=== PATIENT | female | born 1960 | race Hispanic/Latino ===

== ENCOUNTER 2022-10-22 09:26 | Inpatient (IN) | payer OTHER ==
--- OUTSIDE RECORDS SUMMARY | 2022-10-22 09:34 | XMS REPORT | Continuity of Care Document ---
:1960 Author Organization [facility] t Address [address] [facility] [address] [place] [address] Support Name Relationship Address Phone MANJIT PICHARDOICA CH [address] [facility] [place] [address] ESEUNEX LOU CH Unavailable Escuriex Olu Extended family member [address] [place] [address] ESCURIEX, LOU CH [address] [place] [address] NOT OBTAINED Unavailable Unavailable Unavailable UPDATE, UPDATE OR [address] [place] [address] ESCUNEX, LOU CH [address] [place] [address] ESCURIEX, [place] [address] ESCURIEY, LOU CH [address] [place] [address] ESZURIEX, LOU CH [address] [place] [address] DAY, MOCICA CH [address] [place] [address] ESCURIEX, LOU OR [address] [place] [address] ESCURIEX, LOU CH [address] [facility] ([phone] [place] [address] EXCISICA, LOU CH [address] [place] [address] Adalid Angelo Unavailable [address] [phone] [place] [address] Lou Ames Unavailable [address] [phone] [place] [address] Adalid Angelo Unavailable [address] [phone] [place] [address] Care Team Providers Name Role Phone Oriana Stockton Primary Care Physician Oriana STOCKTON Attending Clinician Unavailable DANYEL SHARP Attending Clinician Unavailable DANNY OSMAN Attending Clinician Unavailable RIGO KIM Attending Clinician Unavailable MIGUELANGEL DYKES Attending Clinician Unavailable HELIO LOPEZ Attending Clinician Unavailable Donovan Lara MD Attending Clinician , [facility] Oph Minor Surg Room Attending Clinician Unavailable MAGNO BARBER Attending Clinician Unavailable KEKE CARTER Attending Clinician Unavailable KEKE CARTER Attending Clinician Unavailable OCTAVIANO WISDOM Attending Clinician Unavailable HELIO LOPEZ Attending Clinician Unavailable OCTAVIANO WISDOM Attending Clinician Unavailable KULWINDER JAMESON Attending Clinician Unavailable FRANCES HAYES Attending Clinician Unavailable Wen Maldonado MD Attending Clinician JEREMY WOMACK Attending Clinician Unavailable PHYSICIAN, NON ASSOCIATED Attending Clinician Unavailable WEN MALDONADO Attending Clinician Unavailable 1, Utp Interventional Consult Attending Clinician UnavailOlesya Almaraz LVN Attending Clinician Unavailable Thao Varma Attending Clinician Unavailable Oriana Stockton Admitting Clinician Unavailable Payers Payer Name Policy Type Policy Number Effective Date Expiration Date [facility] [id number] 2012 2012 00:00:00 00:00:00 [employer] MEDICARE [id number] 2020 ADVANTAGE HMO 00:00:00 [employer] STAR [id number] 2014 PLUS MMP 00:00:00 [employer] MEDICARE 53 [id number] [facility] Problems Condition Condition Condition Status Onset Resolution Last Treating Co mments Source Name Details Category Date Date Treatment Clinician Date Chronic Stage 3a Problem Common kidney chronic Spirit disease kidney - [facility]I stage 3A disease [facility] [id number] Hepatocell Problem Co mmon ular Spirit carcinoma - CHI [facility] [id number] long term Problem Com mon current Spirit use of - [facility] insulin [facility] [id number] Unsteady Problem Commo n gait [facility] Cirrhosis Cirrhosis Problem Com mon of liver of liver [facility] Diabetic Diabetic Problem Commo n neuropathy neuropathy Sp vj [facility] Thrombocyt Thrombocyt Problem C ommon openia openia [facility] Hyperlipid Hyperlipid Problem C ommon emia emia [facility] Hypertensi Hypertensi Problem C ommon on on, Spirit unspecifie - CHI d type [facility] [id number] Cough Problem Common [facility] [id number] Type 2 Problem Common diabetes [facility] mellitus - [facility] without [facility], Medical without Center long-term current use of insulin [id number] Iron Problem Common deficiency [facility] anemia, - CHI unspecifie [facility] iron [facility] deficiency Medica l anemia Center type Ascites Ascites Problem Common [facility] [id number] Environmen Problem Co mmon julio cesar [facility] allergies - [facility] Elevated Elevated Problem Commo n levels of LDH Spirit transamina - [facility] se & [facility] Center ase Chronic Chronic Problem Common hepatitis hepatitis Spir it C C [facility] [id number] Seasonal Problem Commo n allergic Spirit rhinitis - CHI due to [facility] Dysthymia Chronic Problem Commo n depressive [facility] person [facility] [id number] Epistaxis Problem Com mon Spirit [facility] Genital Genital Problem Common herpes herpes Spirit simplex simplex, - CHI unspecifie [facility] Seasonal Seasonal Problem Commo n allergy allergies [facility] [id number] Hyperlipid Problem Co mmon emia, Spirit mixed [facility] [id number] Acquired Problem Comm on hypothyroi Spirit dism [facility] [id number] Allergic Problem Commo n rhinitis, Spirit unspecifie - CHI d [facility] y, Medical unspecifie Center d trigger [id number] Neuropathy Problem Co mmon Spirit [facility] [id number] Constipati Problem Com mon on, Spirit unspecifie - CHI d St constipati [facility] on type Medical Center [id number] Type 2 [place] [id number] diabetes Spirit mellitus - CHI with hyperglyce [facility] [id number] Type 2 Problem Common diabetes Spirit mellitus - CHI with unspecifie [facility] Medical complicati Center ons Hepatic Hepatic Problem Common encephalop encephalop Sp vj athy athy - [facility] Chronic Other Problem Common pain chronic [facility] pain - [facility] Sciatica Lumbago Problem Common with Spirit sciatica, - CHI left side [facility] Vitamin D Vitamin D Problem Com mon deficiency deficiency Sp vj - [facility] Chronic +5th digit Problem Comm on kidney eff Spirit disease 05/20/20*CK - [facility] stage 3 D (chronic kidney [facility] disease) Medical stage 3, Center GFR 30-59 ml/min Allergies, Adverse Reactions, Alerts Allergy Allergy Status Severity Reaction(s) Onset Inactive Treating Comm ents Source Name Type Date Date Clinician Iodine Propensi Active Swelling Pt [facility] ty to 09-07 reports Health adverse 00:00: "swelling reaction 00 of s throat, itching"; occurred during imaging appointme nt Latex Propensi Active Itching Pt [facility] ty to 09-07 reports Health adverse 00:00: itching reaction 00 with s latex adhesives Peginter Propensi Active UT feron ty to 04-27 Health Edgard-2a adverse 00:00: reaction 00 s Social History Social Habit Start Date Stop Date Quantity Comments Source History of Tobacco [facility] Use [facility] History [facility] Alcohol Frequency History [facility] Alcohol Std Drinks History [facility] Alcohol Binge Exposure to 2022-07-22 2022-08-01 Not sure [facility] SARS-CoV-2 (event) 00:00:00 07:42:00 Tobacco use and 2021-09-07 2021-09-07 Smokeless tobacco [facility] exposure 00:00:00 00:00:00 non-user Alcohol intake 2021-09-07 2021-09-07 Current drinker [facility]th 00:00:00 00:00:00 of alcohol (finding) Alcohol Comment 2021-09-07 2021-09-07 Pt reports [facility] 00:00:00 00:00:00 "sometimes" Sex Assigned At 1960-04-081958-04-08 [facility] [place] 00:00[facility]00 [facility]:00 [facility] Smoking Status Start Date Stop Date Source Never smoked tobacco [facility] Medications Ordered Filled Start Stop Current Ordering Indication Dosage Frequency Signature Comments Components Source Medication Medication Date Date Medication? Clinician (SIG) Name Name aflibercept 2022- No [id number] 2mg 2 mg, [facility] (Eylea) 09-26 [facility] intrav[facility]rea 19:40: 19:40 al, Once l injection 22 :00 PRN 2 mg Procedure, Starting on Sun09/26/22 at 1340, For 1 dose triamcinolo 2022- No [id number] 80mg UT ne 09-25 42419 Health acetonide 16:30: 16:30 (Kenalog-40 00 :00 ) injection 80 mg triamcinolo 2022- No [id number] 80mg 80 mg, UT ne 09-25 91147 [facility] acetonide 16:30: 16:30 cular, (Kenalog-40 00 :00 Once PRN ) injection Procedure, 80 mg Starting on Sun09/25/22 at 1030, For 1 dose aflibercept 2022- No [id number] 2mg 2 mg, [facility] (Eylea) 08-29 [facility]rea 18:39: 18:39 al, Once l injection 46 :00 PRN 2 mg Procedure, Starting on Sun08/29/22 at 1239, For 1 dose aflibercept 2022- No [id number] 2mg 2 mg, [facility] (Eylea) 08-29 [facility] intravitrea 18:39: 18:39 al, Once l injection 46 :00 PRN 2 mg Procedure, Starting on Sun08/29/22 at 1239, For 1 dose aflibercept 2021-08- No [id number] 2mg 2 mg, UT (Eylea) 10-02 [facility] intrav[facility]rea 14:53: 14:53 al, Once l injection 30 :00 PRN 2 mg Procedure, Starting on Sun08/01/22 at 0853, For 1 dose aflibercept 2021-08- No [id number] 2mg 2 mg, UT (Eylea) 2-13 12-13 [facility] intravitrea 14:53: 14:53 al, Once l injection 30 :00 PRN 2 mg Procedure, Starting on Sun08/01/22 at 0853, For 1 dose empaglifloz 2021-08 Yes 1{tbl} 1 tablet. UT in 10-02 Health (Jardiance) 07:53: 25 MG 32 lisinopril 2021-08 Yes 10mg Take 10 mg U T 10 MG 2-13 by mouth. Health tablet 07:53: 32 acyclovir 2021-08 Yes 1 tablet UT (Zovirax) 2-13 [facility] 400 MG 07:53: Twice a tablet 32 day as needed for 5-7 days until improved for 30 days levocetiriz 2021-08 Yes 1{tbl} Take 1 UT ine (Xyzal) 2-13 tablet by Hea lth 5 MG tablet 07:53: mouth 1 32 (one) time each day in the evening. insulin 2021-08 Yes 10 units UT aspart 2-13 TID before Health (NovoLOG) 07:53: meals 100 UNIT/ML 32 injection multivitami 2021-08 Yes Take by UT n with 2-13 mouth. Health minerals 07:53: (Centrum) 32 9-200 mg-mcg tablet split tablet empaglifloz 2021-08 Yes 1{tbl} 1 tablet. UT in 10-02 Health (Jardiance) 07:53: 25 MG 32 lisinopril 2021-08 Yes 10mg Take 10 mg U T 10 MG 2-13 by mouth. Health tablet 07:53: 32 acyclovir 2021-08 Yes 1 tablet UT (Zovirax) 2-13 [facility] 400 MG 07:53: Twice a tablet 32 day as needed for 5-7 days until improved for 30 days levocetiriz 2021-08 Yes 1{tbl} Take 1 UT ine (Xyzal) 2-13 tablet by Hea lth 5 MG tablet 07:53: mouth 1 32 (one) time each day in the evening. insulin 2021-08 Yes 10 units UT aspart 2-13 TID before Health (NovoLOG) 07:53: meals 100 UNIT/ML 32 injection multivitami 2021-08 Yes Take by UT n with 2-13 mouth. Health minerals 07:53: (Centrum) 32 9-200 mg-mcg tablet split tablet empaglifloz 2021-08 Yes 1{tbl} 1 tablet. UT in 10-02 Health (Jardiance) 07:53: 25 MG 32 lisinopril 2021- Yes 10mg Take 10 mg U T 10 MG 2-13 by mouth. Health tablet 07:53: 32 acyclovir 2021-08 Yes 1 tablet UT (Zovirax) 2-13 [facility] 400 MG 07:53: Twice a tablet 32 day as needed for 5-7 days until improved for 30 days levocetiriz 2021-08 Yes 1{tbl} Take 1 UT ine (Xyzal) 2-13 tablet by Hea lth 5 MG tablet 07:53: mouth 1 32 (one) time each day in the evening. insulin 2021-08 Yes 10 units UT aspart 2-13 TID before Health (NovoLOG) 07:53: meals 100 UNIT/ML 32 injection multivitami 2021-08 Yes Take by UT n with 2-13 mouth. Health minerals 07:53: (Centrum) 32 9-200 mg-mcg tablet split tablet empaglifloz 2021-08 Yes 1{tbl} 1 tablet. UT in 10-02 Health (Jardiance) 07:53: 25 MG 32 lisinopril 2021-08 Yes 10mg Take 10 mg U T 10 MG 2-13 by mouth. Health tablet 07:53: 32 acyclovir 2021-08 Yes 1 tablet UT (Zovirax) 2-13 [facility] 400 MG 07:53: Twice a tablet 32 day as needed for 5-7 days until improved for 30 days levocetiriz 2021-1 Yes 1{tbl} Take 1 UT ine (Xyzal) 2-13 tablet by Hea lth 5 MG tablet 07:53: mouth 1 32 (one) time each day in the evening. insulin 2021- Yes 10 units UT aspart 2-13 TID before Health (NovoLOG) 07:53: meals 100 UNIT/ML 32 injection multivitami 2021-08 Yes Take by UT n with 2-13 mouth. Health minerals 07:53: (Centrum) 32 9-200 mg-mcg tablet split tablet empaglifloz 2021-1 Yes 1{tbl} 1 tablet. UT in 10-02 Health (Jardiance) 07:53: 25 MG 32 lisinopril 2021-08 Yes 10mg Take 10 mg U T 10 MG 2-13 by mouth. Health tablet 07:53: 32 acyclovir 2021-08 Yes 1 tablet UT (Zovirax) 2-13 [facility] 400 MG 07:53: Twice a tablet 32 day as needed for 5-7 days until improved for 30 days levocetiriz 2021-08 Yes 1{tbl} Take 1 UT ine (Xyzal) 2-13 tablet by a lt 5 MG tablet 07:53: mouth 1 32 (one) time each day in the evening. insulin 2021-08 Yes 10 units UT aspart 2-13 TID before Health (NovoLOG) 07:53: meals 100 UNIT/ML 32 injection multivitami 2021-08 Yes Take by UT n with 2-13 mouth. Health minerals 07:53: (Centrum) 32 9-200 mg-mcg tablet split tablet empaglifloz 2021-08 Yes 1{tbl} 1 tablet. UT in 10-02 Health (Jardiance) 07:53: 25 MG 32 lisinopril 2021-08 Yes 10mg Take 10 mg U T 10 MG 2-13 by mouth. Health tablet 07:53: 32 acyclovir 2021-08 Yes 1 tablet UT (Zovirax) 2-13 [facility] 400 MG 07:53: Twice a tablet 32 day as needed for 5-7 days until improved for 30 days levocetiriz 2021-08 Yes 1{tbl} Take 1 UT ine (Xyzal) 2-13 tablet by a lt 5 MG tablet 07:53: mouth 1 32 (one) time each day in the evening. insulin 2021-08 Yes 10 units UT aspart 2-13 TID before Health (NovoLOG) 07:53: meals 100 UNIT/ML 32 injection multivitami 2021-08 Yes Take by UT n with 2-13 mouth. Health minerals 07:53: (Centrum) 32 9-200 mg-mcg tablet split tablet aflibercept 2021-08 2022- No [id number] 2mg 2 mg, UT (Eylea) 0-12 10-12 [facility] intravitrea 15:56: 15:56 al, Once l injection 20 :00 PRN 2 mg Procedure, Starting on Sun05/31/22 at 1056, For 1 dose Vitamin D-3 Vitamin D-3 No 1{table QD Vitamin 125 MCG 125 MCG 6-30 t} D-3 125 (5000 UT) (5000 UT) 00:00: MCG (5000 00 UT) Vitamin D-3 Vitamin D-3 No 1{table QD Vitamin 125 MCG 125 MCG 6-30 t} D-3 125 (5000 UT) (5000 UT) 00:00: MCG (5000 00 UT) Vitamin D-3 Vitamin D-3 No 1{table QD Vitamin 125 MCG 125 MCG 6-30 t} D-3 125 (5000 UT) (5000 UT) 00:00: MCG (5000 00 UT) Vitamin D-3 Vitamin D-3 No 1{table QD Vitamin 125 MCG 125 MCG 6-30 t} D-3 125 (5000 UT) (5000 UT) 00:00: MCG (5000 00 UT) Vitamin D-3 Vitamin D-3 No 1{table QD Vitamin 125 MCG 125 MCG 6-30 t} D-3 125 (5000 UT) (5000 UT) 00:00: MCG (5000 00 UT) insulin 2021-0 Yes 10 units UT aspart 3-28 TID before Health (NovoLOG) 10:56: meals 100 UNIT/ML 17 injection multivitami 0 Yes Take by UT n with 3-28 mouth. Health minerals 10:56: (Centrum) 17 9-200 mg-mcg tablet split tablet insulin 2021-0 Yes 10 units UT aspart 3-28 TID before Health (NovoLOG) 10:56: meals 100 UNIT/ML 17 injection multivitami 2021-0 Yes Take by UT n with 3-28 mouth. Health minerals 10:56: (Centrum) 17 9-200 mg-mcg tablet split tablet insulin 2021-0 Yes 10 units UT aspart 3-28 TID before Health (NovoLOG) 10:56: meals 100 UNIT/ML 17 injection multivitami 2021-0 Yes Take by UT n with 3-28 mouth. Health minerals 10:56: (Centrum) 17 9-200 mg-mcg tablet split tablet insulin 2021-0 Yes 10 units UT aspart 3-28 TID before Health (NovoLOG) 10:56: meals 100 UNIT/ML 17 injection multivitami 2-0 Yes Take by UT n with 3-28 mouth. Health minerals 10:56: (Centrum) 17 9-200 mg-mcg tablet split tablet insulin 2-0 Yes 10 units UT aspart 3-28 TID before Health (NovoLOG) 10:56: meals 100 UNIT/ML 17 injection multivitami 2-0 Yes Take by UT n with 3-28 mouth. Health minerals 10:56: (Centrum) 17 9-200 mg-mcg tablet split tablet insulin 2-0 Yes 10 units UT aspart 3-28 TID before Health (NovoLOG) 10:56: meals 100 UNIT/ML 17 injection multivitami 2-0 Yes Take by UT n with 3-28 mouth. Health minerals 10:56: (Centrum) 17 9-200 mg-mcg tablet split tablet insulin 2021-0 Yes 10 units UT aspart 3-28 TID before Health (NovoLOG) 10:56: meals 100 UNIT/ML 17 injection multivitami 2021-0 Yes Take by UT n with 3-28 mouth. Health minerals 10:56: (Centrum) 17 9-200 mg-mcg tablet split tablet empaglifloz 2021-0 Yes 1{tbl} 1 tablet. UT in 11-14 Health (Jardiance) 10:56: 25 MG 16 lisinopril 2021-0 Yes 10mg Take 10 mg U T 10 MG 3-28 by mouth. Health tablet 10:56: 16 acyclovir 2021-0 Yes 1 tablet UT (Zovirax) 3-28 [facility] 400 MG 10:56: Twice a tablet 16 day as needed for 5-7 days until improved for 30 days levocetiriz 2021-0 Yes 1{tbl} Take 1 UT ine (Xyzal) 3-28 tablet by a lt 5 MG tablet 10:56: mouth 1 16 (one) time each day in the evening. empaglifloz 2021-0 Yes 1{tbl} 1 tablet. UT in 11-14 Health (Jardiance) 10:56: 25 MG 16 lisinopril 2-0 Yes 10mg Take 10 mg U T 10 MG 3-28 by mouth. Health tablet 10:56: 16 acyclovir 2021-0 Yes 1 tablet UT (Zovirax) 3- [facility] 400 MG 10:56: Twice a tablet 16 day as needed for 5-7 days until improved for 30 days levocetiriz 2022-0 Yes 1{tbl} Take 1 UT ine (Xyzal) 3- tablet by Hea lt 5 MG tablet 10:56: mouth 1 16 (one) time each day in the evening. empaglifloz 2022-0 Yes 1{tbl} 1 tablet. UT in 11-14 Health (Jardiance) 10:56: 25 MG 16 lisinopril 2022-0 Yes 10mg Take 10 mg U T 10 MG 3- by mouth. Health tablet 10:56: 16 acyclovir 2022-0 Yes 1 tablet UT (Zovirax) 3- [facility] 400 MG 10:56: Twice a tablet 16 day as needed for 5-7 days until improved for 30 days levocetiriz 2022-0 Yes 1{tbl} Take 1 UT ine (Xyzal) - tablet by a lt 5 MG tablet 10:56: mouth 1 16 (one) time each day in the evening. empaglifloz 2022-0 Yes 1{tbl} 1 tablet. UT in 11-14 Health (Jardiance) 10:56: 25 MG 16 lisinopril 2022-0 Yes 10mg Take 10 mg U T 10 MG 11-14 by mouth. Health tablet 10:56: 16 acyclovir 2022-0 Yes 1 tablet UT (Zovirax) 3- [facility] 400 MG 10:56: Twice a tablet 16 day as needed for 5-7 days until improved for 30 days levocetiriz 2022-0 Yes 1{tbl} Take 1 UT ine (Xyzal) 3- tablet by a lt 5 MG tablet 10:56: mouth 1 16 (one) time each day in the evening. empaglifloz 2022-0 Yes 1{tbl} 1 tablet. UT in 11-14 Health (Jardiance) 10:56: 25 MG 16 lisinopril 2022-0 Yes 10mg Take 10 mg U T 10 MG 3-28 by mouth. Health tablet 10:56: 16 acyclovir 2022-0 Yes 1 tablet UT (Zovirax) 3-28 [facility] 400 MG 10:56: Twice a tablet 16 day as needed for 5-7 days until improved for 30 days levocetiriz 2022-0 Yes 1{tbl} Take 1 UT ine (Xyzal) 3-28 tablet by Hea lt 5 MG tablet 10:56: mouth 1 16 (one) time each day in the evening. empaglifloz 2022-0 Yes 1{tbl} 1 tablet. UT in 11-14 Health (Jardiance) 10:56: 25 MG 16 lisinopril 2022-0 Yes 10mg Take 10 mg U T 10 MG 3-28 by mouth. Health tablet 10:56: 16 acyclovir 2-0 Yes 1 tablet UT (Zovirax) 3- [facility] 400 MG 10:56: Twice a tablet 16 day as needed for 5-7 days until improved for 30 days levocetiriz 2022-0 Yes 1{tbl} Take 1 UT ine (Xyzal) 3- tablet by a lt 5 MG tablet 10:56: mouth 1 16 (one) time each day in the evening. empaglifloz 2022-0 Yes 1{tbl} 1 tablet. UT in 11-14 Health (Jardiance) 10:56: 25 MG 16 lisinopril 2-0 Yes 10mg Take 10 mg U T 10 MG 3 by mouth. Health tablet 10:56: 16 acyclovir 2021-0 Yes 1 tablet UT (Zovirax) 3- [facility] 400 MG 10:56: Twice a tablet 16 day as needed for 5-7 days until improved for 30 days levocetiriz 2022-0 Yes 1{tbl} Take 1 UT ine (Xyzal) 3-28 tablet by a lt 5 MG tablet 10:56: mouth 1 16 (one) time each day in the evening. NovoLOG MIX 2022-0 Yes UT 70/30 3-15 Health FLEXPEN 00:00: (-30) 100 00 UNIT/ML injection NovoLOG MIX 2022-0 Yes UT 70/30 3-15 Health FLEXPEN 00:00: (-30) 100 00 UNIT/ML injection NovoLOG MIX 2022-0 Yes UT 70/30 3-15 Health FLEXPEN 00:00: (-30) 100 00 UNIT/ML injection NovoLOG MIX 2022-0 Yes UT 70/30 3-15 Health FLEXPEN 00:00: (70-30) 100 00 UNIT/ML injection NovoLOG MIX 2022-0 Yes UT 70/30 3-15 Health FLEXPEN 00:00: (70-30) 100 00 UNIT/ML injection NovoLOG MIX 2022-0 Yes UT 70/30 3-15 Health FLEXPEN 00:00: (70-30) 100 00 UNIT/ML injection NovoLOG MIX 2022-0 Yes UT 70/30 3-15 Health FLEXPEN 00:00: (70-30) 100 00 UNIT/ML injection NovoLOG MIX 2022-0 Yes UT 70/30 3-15 Health FLEXPEN 00:00: (70-30) 100 00 UNIT/ML injection NovoLOG MIX 2-0 Yes UT 70/30 3-15 Health FLEXPEN 00:00: (70-30) 100 00 UNIT/ML injection NovoLOG MIX 2-0 Yes UT 70/30 3-15 Health FLEXPEN 00:00: (70-30) 100 00 UNIT/ML injection NovoLOG MIX 2-0 Yes UT 7030 3-15 Health FLEXPEN 00:00: (70-30) 100 00 UNIT/ML injection NovoLOG MIX 2-0 Yes UT 70/30 3-15 Health FLEXPEN 00:00: (70-30) 100 00 UNIT/ML injection NovoLOG MIX 2-0 Yes UT 7030 3-15 Health FLEXPEN 00:00: (70-30) 100 00 UNIT/ML injection pantoprazol 2-0 Yes UT e 3-14 Health (ProtoNix) 00:00: 40 MG EC 00 tablet pantoprazol 2022-0 Yes UT e 3-14 Health (ProtoNix) 00:00: 40 MG EC 00 tablet pantoprazol 2022-0 Yes UT e 3-14 Health (ProtoNix) 00:00: 40 MG EC 00 tablet pantoprazol 2022-0 Yes UT e 3-14 Health (ProtoNix) 00:00: 40 MG EC 00 tablet pantoprazol 2022-0 Yes UT e 3-14 Health (ProtoNix) 00:00: 40 MG EC 00 tablet pantoprazol 2022-0 Yes UT e 3-14 Health (ProtoNix) 00:00: 40 MG EC 00 tablet pantoprazol 2022-0 Yes UT e 3-14 Health (ProtoNix) 00:00: 40 MG EC 00 tablet pantoprazol 2-0 Yes UT e 3-14 Health (ProtoNix) 00:00: 40 MG EC 00 tablet pantoprazol 2-0 Yes UT e 3-14 Health (ProtoNix) 00:00: 40 MG EC 00 tablet pantoprazol 2-0 Yes UT e 3-14 Health (ProtoNix) 00:00: 40 MG EC 00 tablet pantoprazol 2-0 Yes UT e 3-14 Health (ProtoNix) 00:00: 40 MG EC 00 tablet pantoprazol 2-0 Yes UT e 3-14 Health (ProtoNix) 00:00: 40 MG EC 00 tablet pantoprazol 2-0 Yes UT e 3-14 Health (ProtoNix) 00:00: 40 MG EC 00 tablet predniSONE 2-0 Yes [id number] Take one UT (Deltasone) 2-10 tablet 13 Hea lth 50 MG 00:00: hours tablet 00 before procedure. Take one tablet 7 hours before procedure. Take one tablet 1 hour before procedure. predniSONE 2-0 Yes [id number] Take one UT (Deltasone) 2-10 tablet 13 Hea lth 50 MG 00:00: hours tablet 00 before procedure. Take one tablet 7 hours before procedure. Take one tablet 1 hour before procedure. predniSONE 2022-0 Yes [id number] Take one UT (Deltasone) 2-10 tablet 13 Hea lth 50 MG 00:00: hours tablet 00 before procedure. Take one tablet 7 hours before procedure. Take one tablet 1 hour before procedure. predniSONE 2022-0 Yes [id number] Take one UT (Deltasone) 2-10 tablet 13 Hea lth 50 MG 00:00: hours tablet 00 before procedure. Take one tablet 7 hours before procedure. Take one tablet 1 hour before procedure. predniSONE 2022-0 Yes [id number] Take one UT (Deltasone) 2-10 tablet 13 Hea lth 50 MG 00:00: hours tablet 00 before procedure. Take one tablet 7 hours before procedure. Take one tablet 1 hour before procedure. predniSONE 2022-0 Yes [id number] Take one UT (Deltasone) 2-10 tablet 13 Hea lth 50 MG 00:00: hours tablet 00 before procedure. Take one tablet 7 hours before procedure. Take one tablet 1 hour before procedure. predniSONE 2022-0 Yes [id number] Take one UT (Deltasone) 2-10 tablet 13 Hea lth 50 MG 00:00: hours tablet 00 before procedure. Take one tablet 7 hours before procedure. Take one tablet 1 hour before procedure. predniSONE 2022-0 Yes [id number] Take one UT (Deltasone) 2-10 tablet 13 Hea lth 50 MG 00:00: hours tablet 00 before procedure. Take one tablet 7 hours before procedure. Take one tablet 1 hour before procedure. predniSONE 2022-0 Yes [id number] Take one UT (Deltasone) 2-10 tablet 13 Hea lth 50 MG 00:00: hours tablet 00 before procedure. Take one tablet 7 hours before procedure. Take one tablet 1 hour before procedure. predniSONE 2022-0 Yes [id number] Take one UT (Deltasone) 2-10 tablet 13 Hea lth 50 MG 00:00: hours tablet 00 before procedure. Take one tablet 7 hours before procedure. Take one tablet 1 hour before procedure. predniSONE 2022-0 Yes [id number] Take one UT (Deltasone) 2-10 tablet 13 Hea lth 50 MG 00:00: hours tablet 00 before procedure. Take one tablet 7 hours before procedure. Take one tablet 1 hour before procedure. predniSONE 2022-0 Yes [id number] Take one UT (Deltasone) 2-10 tablet 13 Hea lth 50 MG 00:00: hours tablet 00 before procedure. Take one tablet 7 hours before procedure. Take one tablet 1 hour before procedure. predniSONE 2022-0 Yes [id number] Take one UT (Deltasone) 2-10 tablet 13 Hea lth 50 MG 00:00: hours tablet 00 before procedure. Take one tablet 7 hours before procedure. Take one tablet 1 hour before procedure. levothyroxi 2021-0 Yes [facility] (Synthroid, 00:00: Levoxyl) 75 00 MCG tablet levothyroxi 2021-0 Yes [facility] (Synthroid, 00:00: Levoxyl) 75 00 MCG tablet levothyroxi 2021-0 Yes [facility] (Synthroid, 00:00: Levoxyl) 75 00 MCG tablet levothyroxi 2021-0 Yes [facility] (Synthroid, 00:00: Levoxyl) 75 00 MCG tablet levothyroxi 2021-0 Yes [facility] -[facility] (Synthroid, 00:00: Levoxyl) 75 00 MCG tablet levothyroxi 2021-0 Yes [facility] -[facility] (Synthroid, 00:00: Levoxyl) 75 00 MCG tablet levothyroxi 2021-0 Yes [facility] -[facility] (Synthroid, 00:00: Levoxyl) 75 00 MCG tablet levothyroxi 2021-0 Yes [facility] -[facility] (Synthroid, 00:00: Levoxyl) 75 00 MCG tablet levothyroxi 2021-0 Yes [facility] -[facility] (Synthroid, 00:00: Levoxyl) 75 00 MCG tablet levothyroxi 2021-0 Yes [facility] (Synthroid, 00:00: Levoxyl) 75 00 MCG tablet levothyroxi 2021-0 Yes [facility] - [facility] (Synthroid, 00:00: Levoxyl) 75 00 MCG tablet levothyroxi 2021-0 Yes [facility] (Synthroid, 00:00: Levoxyl) 75 00 MCG tablet levothyroxi 2021-0 Yes [facility] -[facility] (Synthroid, 00:00: Levoxyl) 75 00 MCG tablet citalopram 2021-0 Yes [facility] (CeleXA) 20 1-07 [facility] MG tablet 00:00: 00 citalopram 2-0 Yes [facility] (CeleXA) 20 1-07 [facility] MG tablet 00:00: 00 citalopram 2-0 Yes [facility] (CeleXA) 20 1-07 [facility] MG tablet 00:00: 00 citalopram 2-0 Yes [facility] (CeleXA) 20 1-07 [facility] MG tablet 00:00: 00 citalopram 2-0 Yes [facility] (CeleXA) 20 1-07 [facility] MG tablet 00:00: 00 citalopram 2-0 Yes [facility] (CeleXA) 20 1-07 [facility] MG tablet 00:00: 00 citalopram 2-0 Yes [facility] (CeleXA) 20 1-07 [facility] MG tablet 00:00: 00 citalopram 2-0 Yes [facility] (CeleXA) 20 1-07 [facility] MG tablet 00:00: 00 citalopram 0 Yes [facility] (CeleXA) 20 1-07 [facility] MG tablet 00:00: 00 citalopram 0 Yes [facility] (CeleXA) 20 1-07 [facility] MG tablet 00:00: 00 citalopram 0 Yes [facility] (CeleXA) 20 1-07 [facility] MG tablet 00:00: 00 citalopram 0 Yes [facility] (CeleXA) 20 1-07 [facility] MG tablet 00:00: 00 citalopram 0 Yes [facility] (CeleXA) 20 1-07 [facility] MG tablet 00:00: 00 No known 2020-08 No No known [facility] medications 08-28 medication He alth 11:15: s 00 No known 2020-08 No No known [facility] medications 08-28 medication [facility] al[facility] 11:15: s 00 gabapentin 2020-08 Yes [facility] (Neurontin) 0-11 [facility] 300 MG 00:00: capsule 00 gabapentin 2020-08 Yes [facility] (Neurontin) 0-11 [facility] 300 MG 00:00: capsule 00 gabapentin 2020-08 Yes [facility] (Neurontin) 0-11 [facility] 300 MG 00:00: capsule 00 gabapentin 2020-08 Yes [facility] (Neurontin) 0-11 [facility] 300 MG 00:00: capsule 00 gabapentin 2020-08 Yes [facility] (Neurontin) 0-11 [facility] 300 MG 00:00: capsule 00 gabapentin 2020-08 Yes [facility] (Neurontin) 0-11 [facility] 300 MG 00:00: capsule 00 gabapentin 2020-08 Yes [facility] (Neurontin) 0-11 [facility] 300 MG 00:00: capsule 00 gabapentin 2020-08 Yes [facility] (Neurontin) 0-11 [facility] 300 MG 00:00: capsule 00 gabapentin 2020-08 Yes [facility] (Neurontin) 0-11 [facility] 300 MG 00:00: capsule 00 gabapentin 2020-08 Yes [facility] (Neurontin) 0-11 [facility] 300 MG 00:00: capsule 00 gabapentin 2020-08 Yes [facility] (Neurontin) 0-11 [facility] 300 MG 00:00: capsule 00 gabapentin 2020-08 Yes [facility] (Neurontin) 0-11 [facility] 300 MG 00:00: capsule 00 gabapentin 2020-08 Yes [facility] (Neurontin) 0-11 [facility] 300 MG 00:00: capsule 00 Alcohol Alcohol No Alcohol Prep 70 % Prep 70 % 9-29 Prep 70 % 00:00: 00 Alcohol Alcohol 2020-0 No Alcohol Prep 70 % Prep 70 % 9-29 Prep 70 % 00:00: 00 Alcohol Alcohol 2020-0 No Alcohol Prep 70 % Prep 70 % 9-29 Prep 70 % 00:00: 00 Alcohol Alcohol 2020-0 No Alcohol Prep 70 % Prep 70 % 9-29 Prep 70 % 00:00: 00 Alcohol Alcohol 2020-0 No Alcohol Prep 70 % Prep 70 % 9-29 Prep 70 % 00:00: 00 Alcohol Alcohol 2020-0 No Alcohol Prep 70 % Prep 70 % 9-29 Prep 70 % 00:00: 00 Alcohol Alcohol 2020-0 No Alcohol Prep 70 % Prep 70 % 9-29 Prep 70 % 00:00: 00 Alcohol Alcohol 2020-0 No Alcohol Prep 70 % Prep 70 % 9-29 Prep 70 % 00:00: 00 Alcohol Alcohol 2020-0 No Alcohol Prep 70 % Prep 70 % 9-29 Prep 70 % 00:00: 00 Cheratussin Cheratussin 2018-0 Yes [facility] [place] 5 ml Common AC AC 09-15 [facility] 00:00: - [facility] 00 [facility] Accu-Chek Accu-Chek Yes Na [place] USE TWO Common Guide Guide TIMES A Spirit DAY TO - [facility] CHECK [facility] NovoFine NovoFine Yes Na [place] USE TWICE Common DAILY WITH Spirit FLEXPEN [facility] blood blood Yes Na [place] one Common glucose glucose Spirit test strip test strip - C HI [facility] NovoLog NovoLog Yes Na [place] INJECT 10 C ommon Flexpen Flexpen UNITS Spirit UNDER THE - [facility] SKIN WITH [facility] NovoLog Mix NovoLog Mix Yes Na [place] 64 units Common 70/30 70/30 in am and Spirit Flexpen Flexpen 60 units - CHI pm [facility] Glucometer Glucometer Yes Na [place] one Common Spirit [facility] Jardiance Jardiance Yes Na [place] 1 tablet Common Spirit [facility] Lisinopril Lisinopril Yes Na [place] 1 tablet Common Spirit [facility] Lactulose Lactulose Yes Na [place] TAKE 30 ML Common Encephalopa Encephalopa BY MOUTH Spirit thy thy DAILY - [facility] Celexa Celexa Yes Na [place] TAKE ONE Comm on TABLET BY Spirit MOUTH ONCE - [facility] DAILY [facility] Propranolol Propranolol Yes Na [place] 1 tablet Common HCl HCl [facility] Ferrous Ferrous Yes Na [place] 1 tablet Co mmon Sulfate Sulfate [facility] Zovirax Zovirax Yes Na [place] 1 tablet Co mmon [facility] Alcohol Alcohol Yes Na [place] as Common Prep Pads Prep Pads directed S pirit [facility] Lancets Lancets Yes Na [place] one Common Super Thin Super Thin Spi rit [facility] Acyclovir Acyclovir Yes Na [place] TAKE ONE Common TABLET BY Spirit MOUTH - [facility] TWICE A [facility] Claritin Claritin Yes Na [place] 1 tablet Common [facility] Flonase Flonase Yes Na [place] 2 spray in Common each Spirit nostril [facility] Neurontin Neurontin Yes Na [place] 1 capsule Common [facility] NovoLog NovoLog Yes Na [place] 10 units Co mmon TID before Spirit meals [facility] Lisinopril Lisinopril Yes Na [place] TAKE ONE Common TABLET BY Spirit MOUTH - CHI DAILY [facility] Acyclovir Acyclovir Yes Na [place] APPLY TO Common AFFECTED Spirit AREA(S) 6 - CHI TIMES [facility] Levothyroxi Levothyroxi Yes Na [place] 1 tablet Common ne Sodium ne Sodium in the Spi rit morning on - CHI an empty [facility] NovoFine NovoFine Yes Na [place] USE TWICE Common DAILY WITH Spirit FLEXPEN [facility] HydrOXYzine HydrOXYzine Yes Na [place] 1 tablet Common HCl HCl as needed [facility] Levothyroxi Levothyroxi Yes Na [place] 1 tablet Common ne Sodium ne Sodium in the Spi rit morning on - CHI an empty [facility] Levocetiriz Levocetiriz Yes Na [place] TAKE ONE Common ine ine TABLET BY Spirit Dihydrochlo Dihydrochlo MOUTH - [facility] ride ride EVERY St EVENING [facility] Jardiance Jardiance No 1{table QD Jardiance 25 MG 25 MG t} 25 MG Propranolol Propranolol No 1{table QD Propranolo HCl 10 MG HCl 10 MG t} l HCl 10 MG Lancets Lancets No Lancets Super Thin Super Thin Super Thin n/s n/s n/s NovoFine NovoFine No BID NovoFine 32G X 6 MM 32G X 6 MM 32G X 6 MM Levothyroxi Levothyroxi No QD Levothyrox ne Sodium ne Sodium ine Sodium 50 MCG 50 MCG 50 MCG NovoLOG Mix NovoLOG Mix No QD NovoLOG 70/30 70/30 Mix 70/30 FlexPen FlexPen FlexPen (70-30) 100 (70-30) 100 (70-30) UNIT/ML UNIT/ML 100 UNIT/ML CeleXA 20 CeleXA 20 No 1{table QD CeleXA 20 MG MG t} MG Neurontin Neurontin No 1{capsu QID Neurontin 300 MG 300 MG le} 300 MG hydrOXYzine hydrOXYzine No 1{table hydrOXYzin HCl 25 MG HCl 25 MG t_as_ne e HCl 25 eded} MG Acyclovir Acyclovir No 1{table BID Acyclovir 400 MG 400 MG t} 400 MG Flonase 50 Flonase 50 No 2{spray QD Flonase 50 MCG/DOSE MCG/DOSE _in_eac MCG/DOSE h_nostr il} NovoLOG Mix NovoLOG Mix No NovoLOG 70/30 70/30 Mix 70/30 FlexPen FlexPen FlexPen (70-30) 100 (70-30) 100 (70-30) UNIT/ML UNIT/ML 100 UNIT/ML blood blood No QD blood glucose glucose glucose test strip test strip test strip n/s n/s n/s Pantoprazol Pantoprazol No 1{table QD Pantoprazo e Sodium 40 e Sodium 40 t} le Sodium MG MG 40 MG Lisinopril Lisinopril No 1{table QD Lisinopril 20 MG 20 MG t} 20 MG Lisinopril Lisinopril No 1{table QD Lisinopril 20 MG 20 MG t} 20 MG NovoLOG NovoLOG No TID NovoLOG FlexPen 100 FlexPen 100 FlexPen UNIT/ML UNIT/ML 100 UNIT/ML Accu-Chek Accu-Chek No BID Accu-Chek Guide - Guide - Guide - Ferrous Ferrous No 1{table TID Ferrous Sulfate 325 Sulfate 325 t} Sulfate (65 Fe) MG (65 Fe) MG 325 (65 Fe) MG Alcohol Alcohol No Alcohol Prep Pads Prep Pads Prep Pads Glucometer Glucometer No Glucometer n/s n/s n/s Levothyroxi Levothyroxi No QD Levothyrox ne Sodium ne Sodium ine Sodium 50 MCG 50 MCG 50 MCG Acyclovir 5 Acyclovir 5 No 1{appli 6xD Acyclovir % % cation} 5 % Lactulose Lactulose No 30{ml} QD Lactulose Encephalopa Encephalopa Encephalop thy 10 thy 10 athy 10 GM/15ML GM/15ML GM/15ML Neurontin Neurontin No 1{capsu QID Neurontin 300 MG 300 MG le} 300 MG Alcohol Alcohol No Alcohol Prep Pads Prep Pads Prep Pads Acyclovir 5 Acyclovir 5 No 1{appli 6xD Acyclovir % % cation} 5 % Levothyroxi Levothyroxi No QD Levothyrox ne Sodium ne Sodium ine Sodium 50 MCG 50 MCG 50 MCG Lisinopril Lisinopril No 1{table QD Lisinopril 20 MG 20 MG t} 20 MG Pantoprazol Pantoprazol No 1{table QD Pantoprazo e Sodium 40 e Sodium 40 t} le Sodium MG MG 40 MG NovoFine NovoFine No BID NovoFine 32G X 6 MM 32G X 6 MM 32G X 6 MM Accu-Chek Accu-Chek No BID Accu-Chek Guide - Guide - Guide - NovoLOG NovoLOG No TID NovoLOG FlexPen 100 FlexPen 100 FlexPen UNIT/ML UNIT/ML 100 UNIT/ML blood blood No QD blood glucose glucose glucose test strip test strip test strip n/s n/s n/s Levocetiriz Levocetiriz No Levocetiri ine ine zine Dihydrochlo Dihydrochlo Dihydrochl ride 5 MG ride 5 MG oride 5 MG Lisinopril Lisinopril No 1{table QD Lisinopril 20 MG 20 MG t} 20 MG hydrOXYzine hydrOXYzine No 1{table hydrOXYzin HCl 25 MG HCl 25 MG t_as_ne e HCl 25 eded} MG Glucometer Glucometer No Glucometer n/s n/s n/s Propranolol Propranolol No 1{table QD Propranolo HCl 10 MG HCl 10 MG t} l HCl 10 MG Ferrous Ferrous No 1{table TID Ferrous Sulfate 325 Sulfate 325 t} Sulfate (65 Fe) MG (65 Fe) MG 325 (65 Fe) MG Lactulose Lactulose No 30{ml} QD Lactulose Encephalopa Encephalopa Encephalop thy 10 thy 10 athy 10 GM/15ML GM/15ML GM/15ML NovoLOG Mix NovoLOG Mix No QD NovoLOG 70/30 70/30 Mix 70/30 FlexPen FlexPen FlexPen (70-30) 100 (70-30) 100 (70-30) UNIT/ML UNIT/ML 100 UNIT/ML Lancets Lancets No Lancets Super Thin Super Thin Super Thin n/s n/s n/s Citalopram Citalopram No Citalopram Hydrobromid Hydrobromid Hydrobromi e 20 MG e 20 MG de 20 MG Flonase 50 Flonase 50 No 2{spray QD Flonase 50 MCG/DOSE MCG/DOSE _in_eac MCG/DOSE h_nostr il} NovoLOG Mix NovoLOG Mix No QD NovoLOG 70/30 70/30 Mix 70/30 FlexPen FlexPen FlexPen (70-30) 100 (70-30) 100 (70-30) UNIT/ML UNIT/ML 100 UNIT/ML Acyclovir Acyclovir No 1{table BID Acyclovir 400 MG 400 MG t} 400 MG Levothyroxi Levothyroxi No QD Levothyrox ne Sodium ne Sodium ine Sodium 50 MCG 50 MCG 50 MCG Jardiance Jardiance No 1{table QD Jardiance 25 MG 25 MG t} 25 MG Glucometer Glucometer No Glucometer n/s n/s n/s NovoLOG NovoLOG No TID NovoLOG FlexPen 100 FlexPen 100 FlexPen UNIT/ML UNIT/ML 100 UNIT/ML Alcohol Alcohol No Alcohol Prep Pads Prep Pads Prep Pads Citalopram Citalopram No Citalopram Hydrobromid Hydrobromid Hydrobromi e 20 MG e 20 MG de 20 MG Lisinopril Lisinopril No 1{table QD Lisinopril 20 MG 20 MG t} 20 MG blood blood No QD blood glucose glucose glucose test strip test strip test strip n/s n/s n/s Pantoprazol Pantoprazol No 1{table QD Pantoprazo e Sodium 40 e Sodium 40 t} le Sodium MG MG 40 MG Jardiance Jardiance No 1{table QD Jardiance 25 MG 25 MG t} 25 MG Lancets Lancets No Lancets Super Thin Super Thin Super Thin n/s n/s n/s Neurontin Neurontin No 1{capsu QID Neurontin 300 MG 300 MG le} 300 MG Accu-Chek Accu-Chek No BID Accu-Chek Guide - Guide - Guide - Lisinopril Lisinopril No 1{table QD Lisinopril 20 MG 20 MG t} 20 MG Levocetiriz Levocetiriz No Levocetiri ine ine zine Dihydrochlo Dihydrochlo Dihydrochl ride 5 MG ride 5 MG oride 5 MG Lactulose Lactulose No 30{ml} QD Lactulose Encephalopa Encephalopa Encephalop thy 10 thy 10 athy 10 GM/15ML GM/15ML GM/15ML Acyclovir 5 Acyclovir 5 No 1{appli 6xD Acyclovir % % cation} 5 % NovoLOG Mix NovoLOG Mix No QD NovoLOG 70/30 70/30 Mix 70/30 FlexPen FlexPen FlexPen (70-30) 100 (70-30) 100 (70-30) UNIT/ML UNIT/ML 100 UNIT/ML NovoLOG Mix NovoLOG Mix No QD NovoLOG 70/30 70/30 Mix 70/30 FlexPen FlexPen FlexPen (70-30) 100 (70-30) 100 (70-30) UNIT/ML UNIT/ML 100 UNIT/ML Propranolol Propranolol No 1{table QD Propranolo HCl 10 MG HCl 10 MG t} l HCl 10 MG NovoFine NovoFine No BID NovoFine 32G X 6 MM 32G X 6 MM 32G X 6 MM hydrOXYzine hydrOXYzine No 1{table hydrOXYzin HCl 25 MG HCl 25 MG t_as_ne e HCl 25 eded} MG Levothyroxi Levothyroxi No QD Levothyrox ne Sodium ne Sodium ine Sodium 50 MCG 50 MCG 50 MCG Acyclovir Acyclovir No 1{table BID Acyclovir 400 MG 400 MG t} 400 MG Ferrous Ferrous No 1{table TID Ferrous Sulfate 325 Sulfate 325 t} Sulfate (65 Fe) MG (65 Fe) MG 325 (65 Fe) MG Flonase 50 Flonase 50 No 2{spray QD Flonase 50 MCG/DOSE MCG/DOSE _in_eac MCG/DOSE h_nostr il} Levothyroxi Levothyroxi No QD Levothyrox ne Sodium ne Sodium ine Sodium 50 MCG 50 MCG 50 MCG Neurontin Neurontin No 1{capsu QID Neurontin 300 MG 300 MG le} 300 MG Pantoprazol Pantoprazol No 1{table QD Pantoprazo e Sodium 40 e Sodium 40 t} le Sodium MG MG 40 MG Levothyroxi Levothyroxi No QD Levothyrox ne Sodium ne Sodium ine Sodium 50 MCG 50 MCG 50 MCG Accu-Chek Accu-Chek No BID Accu-Chek Guide - Guide - Guide - Propranolol Propranolol No 1{table QD Propranolo HCl 10 MG HCl 10 MG t} l HCl 10 MG NovoLOG Mix NovoLOG Mix No NovoLOG 70/30 70/30 Mix 70/30 FlexPen FlexPen FlexPen (70-30) 100 (70-30) 100 (70-30) UNIT/ML UNIT/ML 100 UNIT/ML Lisinopril Lisinopril No 1{table QD Lisinopril 20 MG 20 MG t} 20 MG Levothyroxi Levothyroxi No QD Levothyrox ne Sodium ne Sodium ine Sodium 50 MCG 50 MCG 50 MCG Alcohol Alcohol No Alcohol Prep Pads Prep Pads Prep Pads Lisinopril Lisinopril No Lisinopril 20 MG 20 MG 20 MG Glucometer Glucometer No Glucometer n/s n/s n/s blood blood No QD blood glucose glucose glucose test strip test strip test strip n/s n/s n/s Vitamin D3 Vitamin D3 No Vitamin D3 hydrOXYzine hydrOXYzine No 1{table hydrOXYzin HCl 25 MG HCl 25 MG t_as_ne e HCl 25 eded} MG Lactulose Lactulose No 30{ml} QD Lactulose Encephalopa Encephalopa Encephalop thy 10 thy 10 athy 10 GM/15ML GM/15ML GM/15ML Citalopram Citalopram No Citalopram Hydrobromid Hydrobromid Hydrobromi e 20 MG e 20 MG de 20 MG Lancets Lancets No Lancets Super Thin Super Thin Super Thin n/s n/s n/s Ferrous Ferrous No 1{table TID Ferrous Sulfate 325 Sulfate 325 t} Sulfate (65 Fe) MG (65 Fe) MG 325 (65 Fe) MG Acyclovir 5 Acyclovir 5 No 1{appli 6xD Acyclovir % % cation} 5 % Levocetiriz Levocetiriz No Levocetiri ine ine zine Dihydrochlo Dihydrochlo Dihydrochl ride 5 MG ride 5 MG oride 5 MG NovoLOG NovoLOG No TID NovoLOG FlexPen 100 FlexPen 100 FlexPen UNIT/ML UNIT/ML 100 UNIT/ML NovoFine NovoFine No BID NovoFine 32G X 6 MM 32G X 6 MM 32G X 6 MM Flonase 50 Flonase 50 No 2{spray QD Flonase 50 MCG/DOSE MCG/DOSE _in_eac MCG/DOSE h_nostr il} Acyclovir Acyclovir No 1{table BID Acyclovir 400 MG 400 MG t} 400 MG Jardiance Jardiance No 1{table QD Jardiance 25 MG 25 MG t} 25 MG NovoLOG Mix NovoLOG Mix No QD NovoLOG 70/30 70/30 Mix 70/30 FlexPen FlexPen FlexPen (70-30) 100 (70-30) 100 (70-30) UNIT/ML UNIT/ML 100 UNIT/ML Neurontin Neurontin No 1{capsu QID Neurontin 300 MG 300 MG le} 300 MG Accu-Chek Accu-Chek No BID Accu-Chek Guide - Guide - Guide - Levothyroxi Levothyroxi No QD Levothyrox ne Sodium ne Sodium ine Sodium 50 MCG 50 MCG 50 MCG Ferrous Ferrous No 1{table TID Ferrous Sulfate 325 Sulfate 325 t} Sulfate (65 Fe) MG (65 Fe) MG 325 (65 Fe) MG Propranolol Propranolol No 1{table QD Propranolo HCl 10 MG HCl 10 MG t} l HCl 10 MG Levothyroxi Levothyroxi No QD Levothyrox ne Sodium ne Sodium ine Sodium 50 MCG 50 MCG 50 MCG Lisinopril Lisinopril No 1{table QD Lisinopril 20 MG 20 MG t} 20 MG Pantoprazol Pantoprazol No 1{table QD Pantoprazo e Sodium 40 e Sodium 40 t} le Sodium MG MG 40 MG Lisinopril Lisinopril No Lisinopril 20 MG 20 MG 20 MG Alcohol Alcohol No Alcohol Prep Pads Prep Pads Prep Pads NovoLOG Mix NovoLOG Mix No NovoLOG 70/30 70/30 Mix 70/30 FlexPen FlexPen FlexPen (70-30) 100 (70-30) 100 (70-30) UNIT/ML UNIT/ML 100 UNIT/ML blood blood No QD blood glucose glucose glucose test strip test strip test strip n/s n/s n/s NovoLOG NovoLOG No TID NovoLOG FlexPen 100 FlexPen 100 FlexPen UNIT/ML UNIT/ML 100 UNIT/ML NovoFine NovoFine No BID NovoFine 32G X 6 MM 32G X 6 MM 32G X 6 MM Citalopram Citalopram No Citalopram Hydrobromid Hydrobromid Hydrobromi e 20 MG e 20 MG de 20 MG hydrOXYzine hydrOXYzine No 1{table hydrOXYzin HCl 25 MG HCl 25 MG t_as_ne e HCl 25 eded} MG Acyclovir 5 Acyclovir 5 No 1{appli 6xD Acyclovir % % cation} 5 % Glucometer Glucometer No Glucometer n/s n/s n/s Lancets Lancets No Lancets Super Thin Super Thin Super Thin n/s n/s n/s Levocetiriz Levocetiriz No Levocetiri ine ine zine Dihydrochlo Dihydrochlo Dihydrochl ride 5 MG ride 5 MG oride 5 MG Vitamin D3 Vitamin D3 No Vitamin D3 Lactulose Lactulose No 30{ml} QD Lactulose Encephalopa Encephalopa Encephalop thy 10 thy 10 athy 10 GM/15ML GM/15ML GM/15ML Flonase 50 Flonase 50 No 2{spray QD Flonase 50 MCG/DOSE MCG/DOSE _in_eac MCG/DOSE h_nostr il} Acyclovir Acyclovir No 1{table BID Acyclovir 400 MG 400 MG t} 400 MG Jardiance Jardiance No 1{table QD Jardiance 25 MG 25 MG t} 25 MG NovoLOG Mix NovoLOG Mix No QD NovoLOG 70/30 70/30 Mix 70/30 FlexPen FlexPen FlexPen (70-30) 100 (70-30) 100 (70-30) UNIT/ML UNIT/ML 100 UNIT/ML Neurontin Neurontin No 1{capsu QID Neurontin 300 MG 300 MG le} 300 MG Accu-Chek Accu-Chek No BID Accu-Chek Guide - Guide - Guide - Levothyroxi Levothyroxi No QD Levothyrox ne Sodium ne Sodium ine Sodium 50 MCG 50 MCG 50 MCG Ferrous Ferrous No 1{table TID Ferrous Sulfate 325 Sulfate 325 t} Sulfate (65 Fe) MG (65 Fe) MG 325 (65 Fe) MG Propranolol Propranolol No 1{table QD Propranolo HCl 10 MG HCl 10 MG t} l HCl 10 MG Levothyroxi Levothyroxi No QD Levothyrox ne Sodium ne Sodium ine Sodium 50 MCG 50 MCG 50 MCG Lisinopril Lisinopril No 1{table QD Lisinopril 20 MG 20 MG t} 20 MG Pantoprazol Pantoprazol No 1{table QD Pantoprazo e Sodium 40 e Sodium 40 t} le Sodium MG MG 40 MG Lisinopril Lisinopril No Lisinopril 20 MG 20 MG 20 MG Alcohol Alcohol No Alcohol Prep Pads Prep Pads Prep Pads NovoLOG Mix NovoLOG Mix No NovoLOG 70/30 70/30 Mix 70/30 FlexPen FlexPen FlexPen (70-30) 100 (70-30) 100 (70-30) UNIT/ML UNIT/ML 100 UNIT/ML blood blood No QD blood glucose glucose glucose test strip test strip test strip n/s n/s n/s NovoLOG NovoLOG No TID NovoLOG FlexPen 100 FlexPen 100 FlexPen UNIT/ML UNIT/ML 100 UNIT/ML NovoFine NovoFine No BID NovoFine 32G X 6 MM 32G X 6 MM 32G X 6 MM Citalopram Citalopram No Citalopram Hydrobromid Hydrobromid Hydrobromi e 20 MG e 20 MG de 20 MG hydrOXYzine hydrOXYzine No 1{table hydrOXYzin HCl 25 MG HCl 25 MG t_as_ne e HCl 25 eded} MG Acyclovir 5 Acyclovir 5 No 1{appli 6xD Acyclovir % % cation} 5 % Glucometer Glucometer No Glucometer n/s n/s n/s Lancets Lancets No Lancets Super Thin Super Thin Super Thin n/s n/s n/s Levocetiriz Levocetiriz No Levocetiri ine ine zine Dihydrochlo Dihydrochlo Dihydrochl ride 5 MG ride 5 MG oride 5 MG Vitamin D3 Vitamin D3 No Vitamin D3 Lactulose Lactulose No 30{ml} QD Lactulose Encephalopa Encephalopa Encephalop thy 10 thy 10 athy 10 GM/15ML GM/15ML GM/15ML Flonase 50 Flonase 50 No 2{spray QD Flonase 50 MCG/DOSE MCG/DOSE _in_eac MCG/DOSE h_nostr il} Acyclovir Acyclovir No 1{table BID Acyclovir 400 MG 400 MG t} 400 MG Jardiance Jardiance No 1{table QD Jardiance 25 MG 25 MG t} 25 MG NovoLOG Mix NovoLOG Mix No QD NovoLOG 70/30 70/30 Mix 70/30 FlexPen FlexPen FlexPen (70-30) 100 (70-30) 100 (70-30) UNIT/ML UNIT/ML 100 UNIT/ML Neurontin Neurontin No 1{capsu QID Neurontin 300 MG 300 MG le} 300 MG Propranolol Propranolol No Propranolo HCl 10 MG HCl 10 MG l HCl 10 MG Levothyroxi Levothyroxi No QD Levothyrox ne Sodium ne Sodium ine Sodium 50 MCG 50 MCG 50 MCG Accu-Chek Accu-Chek No BID Accu-Chek Guide - Guide - Guide - Alcohol Alcohol No Alcohol Prep Pads Prep Pads Prep Pads Levothyroxi Levothyroxi No QD Levothyrox ne Sodium ne Sodium ine Sodium 50 MCG 50 MCG 50 MCG Lisinopril Lisinopril No 1{table QD Lisinopril 20 MG 20 MG t} 20 MG Pantoprazol Pantoprazol No 1{table QD Pantoprazo e Sodium 40 e Sodium 40 t} le Sodium MG MG 40 MG Lisinopril Lisinopril No Lisinopril 20 MG 20 MG 20 MG Lancets Lancets No Lancets Super Thin Super Thin Super Thin n/s n/s n/s NovoLOG Mix NovoLOG Mix No NovoLOG 70/30 70/30 Mix 70/30 FlexPen FlexPen FlexPen (70-30) 100 (70-30) 100 (70-30) UNIT/ML UNIT/ML 100 UNIT/ML blood blood No QD blood glucose glucose glucose test strip test strip test strip n/s n/s n/s NovoLOG NovoLOG No TID NovoLOG FlexPen 100 FlexPen 100 FlexPen UNIT/ML UNIT/ML 100 UNIT/ML NovoFine NovoFine No BID NovoFine 32G X 6 MM 32G X 6 MM 32G X 6 MM Citalopram Citalopram No Citalopram Hydrobromid Hydrobromid Hydrobromi e 20 MG e 20 MG de 20 MG Levocetiriz Levocetiriz No Levocetiri ine ine zine Dihydrochlo Dihydrochlo Dihydrochl ride 5 MG ride 5 MG oride 5 MG Acyclovir 5 Acyclovir 5 No 1{appli 6xD Acyclovir % % cation} 5 % Glucometer Glucometer No Glucometer n/s n/s n/s hydrOXYzine hydrOXYzine No 1{table hydrOXYzin HCl 25 MG HCl 25 MG t_as_ne e HCl 25 eded} MG Ferrous Ferrous No 1{table TID Ferrous Sulfate 325 Sulfate 325 t} Sulfate (65 Fe) MG (65 Fe) MG 325 (65 Fe) MG Vitamin D3 Vitamin D3 No Vitamin D3 Lactulose Lactulose No 30{ml} QD Lactulose Encephalopa Encephalopa Encephalop thy 10 thy 10 athy 10 GM/15ML GM/15ML GM/15ML Flonase 50 Flonase 50 No 2{spray QD Flonase 50 MCG/DOSE MCG/DOSE _in_eac MCG/DOSE h_nostr il} Acyclovir Acyclovir No 1{table BID Acyclovir 400 MG 400 MG t} 400 MG Jardiance Jardiance No 1{table QD Jardiance 25 MG 25 MG t} 25 MG NovoLOG Mix NovoLOG Mix No QD NovoLOG 70/30 70/30 Mix 70/30 FlexPen FlexPen FlexPen (70-30) 100 (70-30) 100 (70-30) UNIT/ML UNIT/ML 100 UNIT/ML Neurontin Neurontin No 1{capsu QID Neurontin 300 MG 300 MG le} 300 MG Propranolol Propranolol No Propranolo HCl 10 MG HCl 10 MG l HCl 10 MG Levothyroxi Levothyroxi No QD Levothyrox ne Sodium ne Sodium ine Sodium 50 MCG 50 MCG 50 MCG Accu-Chek Accu-Chek No BID Accu-Chek Guide - Guide - Guide - Alcohol Alcohol No Alcohol Prep Pads Prep Pads Prep Pads Levothyroxi Levothyroxi No QD Levothyrox ne Sodium ne Sodium ine Sodium 50 MCG 50 MCG 50 MCG Lisinopril Lisinopril No 1{table QD Lisinopril 20 MG 20 MG t} 20 MG Pantoprazol Pantoprazol No 1{table QD Pantoprazo e Sodium 40 e Sodium 40 t} le Sodium MG MG 40 MG Lisinopril Lisinopril No Lisinopril 20 MG 20 MG 20 MG Lancets Lancets No Lancets Super Thin Super Thin Super Thin n/s n/s n/s NovoLOG Mix NovoLOG Mix No NovoLOG 70/30 70/30 Mix 70/30 FlexPen FlexPen FlexPen (70-30) 100 (70-30) 100 (70-30) UNIT/ML UNIT/ML 100 UNIT/ML blood blood No QD blood glucose glucose glucose test strip test strip test strip n/s n/s n/s NovoLOG NovoLOG No TID NovoLOG FlexPen 100 FlexPen 100 FlexPen UNIT/ML UNIT/ML 100 UNIT/ML NovoFine NovoFine No BID NovoFine 32G X 6 MM 32G X 6 MM 32G X 6 MM Citalopram Citalopram No Citalopram Hydrobromid Hydrobromid Hydrobromi e 20 MG e 20 MG de 20 MG Levocetiriz Levocetiriz No Levocetiri ine ine zine Dihydrochlo Dihydrochlo Dihydrochl ride 5 MG ride 5 MG oride 5 MG Acyclovir 5 Acyclovir 5 No 1{appli 6xD Acyclovir % % cation} 5 % Glucometer Glucometer No Glucometer n/s n/s n/s hydrOXYzine hydrOXYzine No 1{table hydrOXYzin HCl 25 MG HCl 25 MG t_as_ne e HCl 25 eded} MG Ferrous Ferrous No 1{table TID Ferrous Sulfate 325 Sulfate 325 t} Sulfate (65 Fe) MG (65 Fe) MG 325 (65 Fe) MG Vitamin D3 Vitamin D3 No Vitamin D3 Lactulose Lactulose No 30{ml} QD Lactulose Encephalopa Encephalopa Encephalop thy 10 thy 10 athy 10 GM/15ML GM/15ML GM/15ML Flonase 50 Flonase 50 No 2{spray QD Flonase 50 MCG/DOSE MCG/DOSE _in_eac MCG/DOSE h_nostr il} Acyclovir Acyclovir No 1{table BID Acyclovir 400 MG 400 MG t} 400 MG Jardiance Jardiance No 1{table QD Jardiance 25 MG 25 MG t} 25 MG NovoLOG Mix NovoLOG Mix No QD NovoLOG 70/30 70/30 Mix 70/30 FlexPen FlexPen FlexPen (70-30) 100 (70-30) 100 (70-30) UNIT/ML UNIT/ML 100 UNIT/ML Neurontin Neurontin No 1{capsu QID Neurontin 300 MG 300 MG le} 300 MG Accu-Chek Accu-Chek No BID Accu-Chek Guide - Guide - Guide - Levothyroxi Levothyroxi No QD Levothyrox ne Sodium ne Sodium ine Sodium 50 MCG 50 MCG 50 MCG Ferrous Ferrous No 1{table TID Ferrous Sulfate 325 Sulfate 325 t} Sulfate (65 Fe) MG (65 Fe) MG 325 (65 Fe) MG Propranolol Propranolol No 1{table QD Propranolo HCl 10 MG HCl 10 MG t} l HCl 10 MG Levothyroxi Levothyroxi No QD Levothyrox ne Sodium ne Sodium ine Sodium 50 MCG 50 MCG 50 MCG Lisinopril Lisinopril No 1{table QD Lisinopril 20 MG 20 MG t} 20 MG Pantoprazol Pantoprazol No 1{table QD Pantoprazo e Sodium 40 e Sodium 40 t} le Sodium MG MG 40 MG Lisinopril Lisinopril No Lisinopril 20 MG 20 MG 20 MG Alcohol Alcohol No Alcohol Prep Pads Prep Pads Prep Pads NovoLOG Mix NovoLOG Mix No NovoLOG 70/30 70/30 Mix 70/30 FlexPen FlexPen FlexPen (70-30) 100 (70-30) 100 (70-30) UNIT/ML UNIT/ML 100 UNIT/ML blood blood No QD blood glucose glucose glucose test strip test strip test strip n/s n/s n/s NovoLOG NovoLOG No TID NovoLOG FlexPen 100 FlexPen 100 FlexPen UNIT/ML UNIT/ML 100 UNIT/ML NovoFine NovoFine No BID NovoFine 32G X 6 MM 32G X 6 MM 32G X 6 MM Citalopram Citalopram No Citalopram Hydrobromid Hydrobromid Hydrobromi e 20 MG e 20 MG de 20 MG hydrOXYzine hydrOXYzine No 1{table hydrOXYzin HCl 25 MG HCl 25 MG t_as_ne e HCl 25 eded} MG Acyclovir 5 Acyclovir 5 No 1{appli 6xD Acyclovir % % cation} 5 % Glucometer Glucometer No Glucometer n/s n/s n/s Lancets Lancets No Lancets Super Thin Super Thin Super Thin n/s n/s n/s Levocetiriz Levocetiriz No Levocetiri ine ine zine Dihydrochlo Dihydrochlo Dihydrochl ride 5 MG ride 5 MG oride 5 MG Vitamin D3 Vitamin D3 No Vitamin D3 Lactulose Lactulose No 30{ml} QD Lactulose Encephalopa Encephalopa Encephalop thy 10 thy 10 athy 10 GM/15ML GM/15ML GM/15ML Flonase 50 Flonase 50 No 2{spray QD Flonase 50 MCG/DOSE MCG/DOSE _in_eac MCG/DOSE h_nostr il} Acyclovir Acyclovir No 1{table BID Acyclovir 400 MG 400 MG t} 400 MG Jardiance Jardiance No 1{table QD Jardiance 25 MG 25 MG t} 25 MG NovoLOG Mix NovoLOG Mix No QD NovoLOG 70/30 70/30 Mix 70/30 FlexPen FlexPen FlexPen (70-30) 100 (70-30) 100 (70-30) UNIT/ML UNIT/ML 100 UNIT/ML Levocetiriz Levocetiriz No 1{table QD Levocetiri ine ine t_in_th zine Dihydrochlo Dihydrochlo e_eveni Dihydrochl ride 5 MG ride 5 MG ng} oride 5 MG Immunizations Ordered Immunization Filled Immunization Date Status Commen ts Source Name Name Flucelvax - multidose Flucelvax - 2021-09-19 [facility]:07[facility] - [facility] Flucelvax - multidose Flucelvax - 2021-09-19 Completed [facility] multidose [facility]ial 11:07:00 - [facility] Flucelvax - multidose Flucelvax - 2021-09-19 Completed [facility] multidose vial 11:07:00 - [facility] Flucelvax - multidose Flucelvax - 2021-09-19 Completed [facility] multidose vial 11:07:00 - [facility] Flucelvax - multidose Flucelvax - 2021-09-19 Completed [facility] multidose vial 11:07:00 - [facility] Flucelvax - multidose Flucelvax - 2021-09-19 Completed [facility] multidose vial 11:07:00 - [facility] Flucelvax - multidose Flucelvax - 2021-09-19 Completed [facility] multidose vial 11:07:00 - [facility] Influenza, injectable, 2021-09-19 Completed [facility], quadrivalent 00:00:00 (flucelvax) Influenza, injectable, 2021-09-19 Completed [facility], quadrivalent 00:00:00 (flucelvax) Influenza, injectable, 2021-09-19 Completed [facility], quadrivalent 00:00:00 (flucelvax) Influenza, injectable, 2021-09-19 Completed [facility], quadrivalent 00:00:00 (flucelvax) Influenza, injectable, 2021-09-19 Completed [facility], quadrivalent 00:00:00 (flucelvax) Influenza, injectable, 2021-09-19 Completed [facility], quadrivalent 00:00:00 (flucelvax) COVID-19 Pfizer 2021-01-14 [facility] ([facility]) COVID-19 Pfizer 2021-01-14 Completed [facility] (PURPLE-DILUTE) COVID-19 Pfizer 2021-01-14 Completed [facility]:00:00 (PURPLE-DILUTE) COVID-19 Pfizer 2021-01-14 Completed [facility] 00:00:00 (PURPLE-DILUTE) COVID-19 Pfizer 2021-01-14 Completed [facility] 00:00:00 (PURPLE-DILUTE) COVID-19 Pfizer 2021-01-14 Completed [facility] 00:00:00 (PURPLE-DILUTE) COVID-19 Pfizer 2020-12-24 Completed [facility] 00:00:00 (PURPLE-DILUTE) COVID-19 Pfizer 2020-12-24 Completed [facility] 00:00:00 (PURPLE-DILUTE) COVID-19 Pfizer 2020-12-24 Completed [facility] 00:00:00 (PURPLE-DILUTE) COVID-19 Pfizer 2020-12-24 Completed [facility] 00:00:00 (PURPLE-DILUTE) COVID-19 Pfizer 2020-12-24 Completed [facility] 00:00:00 (PURPLE-DILUTE) COVID-19 Pfizer 12 & 2020-12-24 [facility]pleted [facility] 00:00:00 (PURPLE-DILUTE) Afluria single dose Afluria single dose 2020-05-27 Completed [facility] 19:12:00 [facility] Afluria single dose Afluria single dose 2020-05-27 Completed [facility] 19:12:00 [facility] Afluria single dose Afluria single dose 2020-05-27 Completed [facility] 19:12:00 [facility] Afluria single dose Afluria single dose 2020-05-27 Completed [facility] 19:12:00 [facility] Afluria single dose Afluria single dose 2020-05-27 Completed [facility] 19:12:00 [facility] Afluria single dose Afluria single dose 2020-05-27 Completed [facility] 19:12:00 [facility] Afluria single dose Afluria single dose 2020-05-27 Completed [facility] 19:12:00 [facility] Afluria single dose Afluria single dose 2020-05-27 Completed [facility] 19:12:00 [facility] Afluria single dose Afluria single dose 2020-05-27 Completed [facility] 19:12:00 [facility] Influenza, injectable, 2020-05-27 Completed [facility] quadrivalent, 00:00:00 preservative free (afluria, fluarix, flulaval, fluzone) Influenza, injectable, 2020-05-27 Completed [facility] quadrivalent, 00:00:00 preservative free (afluria, fluarix, flulaval, fluzone) Influenza, injectable, 2020-05-27 Completed [facility] quadrivalent, 00:00:00 preservative free (afluria, fluarix, flulaval, fluzone) Influenza, injectable, 2020-05-27 Completed [facility] quadrivalent, 00:00:00 preservative free (afluria, fluarix, flulaval, fluzone) Influenza, injectable, 2020-05-27 Completed [facility] quadrivalent, 00:00:00 preservative free (afluria, fluarix, flulaval, fluzone) Influenza, injectable, 2020-05-27 Completed [facility]rivalent, 00:00:00 preservative free (afluria, fluarix, flulaval, fluzone) Afluria single dose Afluria single dose 2019-04-28 Completed [facility] 15:43:00 [facility] Afluria single dose Afluria single dose 2019-04-28 Completed [facility] 15:43:00 [facility] Afluria single dose Afluria single dose 2019-04-28 Completed [facility] 15:43:00 [facility] Afluria single dose Afluria single dose 2019-04-28 Completed [facility] 15:43:00 [facility] Afluria single dose Afluria single dose 2019-04-28 Completed [facility] 15:43:00 [facility] Afluria single dose Afluria single dose 2019-04-28 Completed [facility] 15:43:00 [facility] Afluria single dose Afluria single dose 2019-04-28 Completed [facility] 15:43:00 [facility] Afluria single dose Afluria single dose 2019-04-28 Completed [facility] 15:43:00 [facility] Afluria single dose Afluria single dose 2019-04-28 Completed [facility] 15:43:00 [facility] Influenza, injectable, 2019-04-28 Completed [facility] quadrivalent, 00:00:00 preservative free (afluria, fluarix, flulaval, fluzone) Influenza, injectable, 2019-04-28 Completed [facility] quadrivalent, 00:00:00 preservative free (afluria, fluarix, flulaval, fluzone) Influenza, injectable, 2019-04-28 Completed [facility] quadrivalent, 00:00:00 preservative free (afluria, fluarix, flulaval, fluzone) Influenza, injectable, 2019-04-28 Completed [facility] quadrivalent, 00:00:00 preservative free (afluria, fluarix, flulaval, fluzone) Influenza, injectable, 2019-04-28 Completed [facility] quadrivalent, 00:00:00 preservative free (afluria, fluarix, flulaval, fluzone) Influenza, injectable, 2019-04-28 Completed [facility]rivalent, 00:00:00 preservative free (afluria, fluarix, flulaval, fluzone) Afluria single dose Afluria single dose 2019-04-28 Completed [facility] 00:00:00 - [facility] Afluria Afluria 2018-06-24 Completed [facility] 13:46:00 - [facility] Afluria Afluria 2018-06-24 Completed [facility] 13:46:00 - [facility] Afluria Afluria 2018-06-24 Completed [facility] 13:46:00 - [facility] Afluria Afluria 2018-06-24 Completed [facility] 13:46:00 - [facility] Afluria Afluria 2018-06-24 Completed [facility] 13:46:00 - [facility] Afluria Afluria 2018-06-24 Completed [facility] 13:46:00 - [facility] Afluria Afluria 2018-06-24 Completed [facility] 13:46:00 - [facility] Afluria Afluria 2018-06-24 Completed [facility] 13:46:00 - [facility] Afluria Afluria 2018-06-24 Completed [facility] 13:46:00 - [facility] Influenza, seasonal, 2018-06-24 [facility], [facility]:00 preservative free Influenza, seasonal, 2018-06-24 [facility], 00:00:00 preservative free Influenza, seasonal, 2018-06-24 [facility], 00:00:00 preservative free Influenza, seasonal, 2018-06-24 [facility], 00:00:00 preservative free Influenza, seasonal, 2018-06-24 [facility], 00:00:00 preservative free Influenza, seasonal, 2018-06-24 [facility], 00:00:00 preservative free Influenza Whole 2013-05-30 Completed [facility] 00:00:00 Pneumococcal 2013-05-30 Completed [facility] Polysaccharide PPV23 00:00:00 Influenza Whole 2013-05-30 Completed [facility] 00:00:00 Pneumococcal 2013-05-30 Completed [facility] Polysaccharide PPV23 00:00:00 Influenza Whole 2013-05-30 Completed [facility] 00:00:00 Pneumococcal 2013-05-30 Completed [facility] Polysaccharide PPV23 00:00:00 Influenza Whole 2013-05-30 Completed [facility] 00:00:00 Pneumococcal 2013-05-30 Completed [facility] Polysaccharide PPV23 00:00:00 Influenza Whole 2013-05-30 Completed [facility] 00:00:00 Pneumococcal 2013-05-30 Completed [facility] Polysaccharide PPV23 00:00:00 Influenza Whole 2013-05-30 Completed [facility] 00:00:00 Pneumococcal 2013-05-30 Completed [facility] Polysaccharide PPV23 00:00:00 Td (adult), 2008-02-24 Completed [facility] unspecified 00:00:00 Td (adult), 2008-02-24 Completed [facility] unspecified 00:00:00 Td (adult), 2008-02-24 Completed [facility] unspecified 00:00:00 Td (adult), 2008-02-24 Completed [facility] unspecified 00:00:00 Td (adult), 2008-02-24 Completed [facility] unspecified 00:00:00 Td (adult), 2008-02-24 Completed [facility] unspecified 00:00:00 Vital Signs Vital Name Observation Time Observation Value Comments Source height 2021-12-20 10:00:00 63.5 [in_i] [facility] weight 2021-12-20 10:00:00 129.4 [lb_av] [facility] temperature 2021-12-20 10:00:00 98.2 [degF] [facility] bmi 2021-12-20 10:00:00 22.56 kg/m2 [facility] oximetry 2021-12-20 10:00:00 98 % [facility] respiratory rate 2021-12-20 10:00:00 16 /min [facility] [place] 2021-12-20 10:00:00 128 mm[Hg] [facility] - systolic [facility] blood pressure 2021-12-20 10:00:00 56 mm[Hg] [facility] - diastolic [facility] Systolic blood 2021-11-14 15:48:00 125 mm[Hg] [facility] Diastolic blood 2021-11-14 15:48:00 68 mm[Hg] [facility] Heart rate 2021-11-14 15:48:00 72 /min [facility] temperature 2021-11-14 15:48:00 36.5 Veronica [facility] height 2021-11-14 15:48:00 160 cm [facility] weight 2021-11-14 15:48:00 56[facility]609 [facility] BMI 2021-11-14 15:48:00 22.11 kg/m2 [facility] Systolic blood 2021-09-07 16:37:00 135 mm[Hg] [facility] Diastolic blood 2021-09-07 16:37:00 68 mm[Hg] [facility] Heart rate 2021-09-07 16:37:00 77 /min [facility] Systolic blood 2021-09-07 16:37:00 135 mm[Hg] [facility] Diastolic blood 2021-09-07 16:37:00 68 mm[Hg] [facility] Heart rate 2021-09-07 16:37:00 77 /min [facility] height 2021-09-07 16:37:00 162.6 cm [facility] Body weight 2021-09-07 16:37:00 57.335 [facility] BMI 2021-09-07 16:37:00 21.70 kg/m2 [facility] Oxygen saturation in 2021-09-07 16:37:00 96 /min [facility] Arterial blood by Pulse oximetry Body height 2021-09-07 16:37:00 162.6 cm [facility] weight 2021-09-07 16:37:00 57.335 [facility] BMI 2021-09-07 16:37:00 21.70 kg/m2 [facility] O[facility] saturation in 2021-09-07 16:37:00 96 /min [facility] Arterial blood by Pulse oximetry Systolic blood 2021-09-07 16:37:00 135 mm[Hg] [facility] Diastolic blood 2021-09-07 16:37:00 68 mm[Hg] [facility] Heart rate 2021-09-07 16:37:00 77 /min [facility] Systolic blood 2021-09-07 16:37:00 135 mm[Hg] [facility] Diastolic blood 2021-09-07 16:37:00 68 mm[Hg] [facility] Heart rate 2021-09-07 16:37:00 77 /min [facility] height 2021-09-07 16:37:00 162.6 cm [facility] Body weight 2021-09-07 16:37:00 57.335 [facility] BMI 2021-09-07 16:37:00 21.70 kg/m2 [facility] O[facility] saturation in 2021-09-07 16:37:00 96 /min [facility] Arterial blood by Pulse oximetry Body height 2021-09-07 16:37:00 162.6 cm [facility] weight 2021-09-07 16:37:00 57.335 kg [facility] BMI 2021-09-07 16:37:00 21.70 kg/m2 [facility] O[facility] saturation in 2021-09-07 16:37:00 96 /min [facility] Arterial blood by Pulse oximetry height 2021-08-29 11:40:00 63.5 [in_i] [facility] weight 2021-08-29 11:40:00 124 [lb_av] [facility] temperature 2021-08-29 11:40:00 97.8 [degF] [facility] bmi 2021-08-29 11:40:00 21.62 kg/m2 [facility] oximetry 2021-08-29 11:40:00 100 % [facility] blood pressure 2021-08-29 11:40:00 138 mm[Hg] [facility] - systolic [facility] blood pressure 2021-08-29 11:40:00 74 mm[Hg] [facility] - diastolic [facility] Procedures Procedure Date / Time Performed Performing Clinician Sour e INTRAVITREAL INJECTION, 2022-09-26 19:40:22 Rigo [facility] PH[facility] - [facility] - RIGHT EYE AK ARTHROCENTESIS ASP/INJ MAJOR 2022-09-25 16:30:[address] [facility] [place] [place] JOINT/BURSA W/OUT US INTRAVITREAL INJECTION, 2022-08-29 18:39:46 [facility] - RIGHT EYE INTRAVITREAL INJECTION, 2022-08-01 14:53:31 [facility] - OD - RIGHT EYE OCT, RETINA - OU - BOTH EYES 2022-08-01 14:16:33 Julio [facility] INTRAVITREAL INJECTION, 2022-05-31 15:56:20 [facility] - OD - RIGHT EYE OCT, RETINA - OU - BOTH EYES 2022-05-17 15:19:14 [facility] OCT, RETINA - OU - BOTH EYES 2022-01-13 [facility]:12[facility] Planned Activity Planned Date Details Comments Source Future Scheduled 2022-04-20 INFLUENZA VACCINE (#1) [facility] 00:00:00 [code = [facility] VACCINE (#1)] Future Scheduled 2022-04-20 INFLUENZA VACCINE (#1) [facility] 00:00:00 [code = [facility]FLU[facility] VACCINE (#1)] Future Scheduled 2022-04-20 INFLUENZA VACCINE (#1) [facility] 00:00:00 [code = INFLUENZA [facility] Ce [facility]ter VACCINE (#1)] Future Scheduled 2022-04-20 INFLUENZA VACCINE (#1) [facility] 00:00:00 [code = INFLUENZA Medical Ce [facility]ter VACCINE (#1)] Future Scheduled 2022-04-20 INFLUENZA VACCINE (#1) [facility] 00:00:00 [code = INFLUENZA Medical Ce [facility]ter VACCINE (#1)] Future Scheduled 2022-04-20 INFLUENZA VACCINE (#1) [facility] 00:00:00 [code = INFLUENZA Medical Ce [facility]ter VACCINE (#1)] Future Scheduled 2022-04-20 INFLUENZA VACCINE (#1) [facility] 00:00:00 [code = INFLUENZA Medical Ce [facility]ter VACCINE (#1)] Future Scheduled 2022-04-20 INFLUENZA VACCINE (#1) [facility] 00:00:00 [code = INFLUENZA [facility] Ce [facility]ter VACCINE (#1)] Future Scheduled 2022-04-20 INFLUENZA VACCINE (#1) [facility] 00:00:00 [code = INFLUENZA Medical Ce [facility]ter VACCINE (#1)] Future Scheduled 2022-04-20 INFLUENZA VACCINE (#1) [facility] 00:00:00 [code = INFLUENZA Medical Ce [facility]ter VACCINE (#1)] Future Scheduled 2022-04-20 INFLUENZA VACCINE (#1) [facility] 00:00:00 [code = INFLUENZA Medical Ce [facility]ter VACCINE (#1)] Future Scheduled 2022-04-20 INFLUENZA VACCINE (#1) [facility] 00:00:00 [code = INFLUENZA [facility]ter VACCINE (#1)] Future Scheduled 2022-04-20 INFLUENZA VACCINE (#1) [facility] 00:00:00 [code = INFLUENZA [facility]ter VACCINE (#1)] Future Scheduled 2022-04-20 INFLUENZA VACCINE (#1) [facility] 00:00:00 [code = INFLUENZA Medical Ce [facility]ter VACCINE (#1)] Future Scheduled 2022-04-20 INFLUENZA VACCINE (#1) [facility] 00:00:00 [code = INFLUENZA [facility]ter VACCINE (#1)] Future Scheduled 2022-04-20 INFLUENZA VACCINE (#1) [facility] 00:00:00 [code = INFLUENZA [facility] Ce [facility]ter VACCINE (#1)] Future Scheduled 2022-04-20 INFLUENZA VACCINE (#1) [facility] 00:00:00 [code = INFLUENZA Medical Ce [facility]ter VACCINE (#1)] Future Scheduled 2022-04-20 INFLUENZA VACCINE (#1) [facility] 00:00:00 [code = INFLUENZA Medical Ce [facility]ter VACCINE (#1)] Future Scheduled 2022-04-20 INFLUENZA VACCINE (#1) [facility] 00:00:00 [code = INFLUENZA [facility]ter VACCINE (#1)] Future Scheduled 2022-04-20 INFLUENZA VACCINE (#1) [facility] 00:00:00 [code = INFLUENZA Medical Ce [facility]ter VACCINE (#1)] Future Scheduled 2022-04-20 INFLUENZA VACCINE (#1) [facility] 00:00:00 [code = INFLUENZA Medical Ce [facility]ter VACCINE (#1)] Future Scheduled 2022-04-20 INFLUENZA VACCINE (#1) [facility] 00:00:00 [code = INFLUENZA Medical Ce [facility]ter VACCINE (#1)] Future Scheduled 2022-04-20 INFLUENZA VACCINE (#1) [facility] 00:00:00 [code = INFLUENZA Medical Ce [facility]ter VACCINE (#1)] Future Scheduled 2021-08-[address] [facility] 00:00:00 (12+) [code = Medical Center DEPRESSION SCREENING (12+)] Future Scheduled 2021-08-[address] [facility] 00:00:00 (12+) [code = Medical Center DEPRESSION SCREENING (12+)] Future Scheduled 2021-08-[address] [facility] 00:00:00 (12+) [code = Medical Center DEPRESSION SCREENING (12+)] Future Scheduled 2021-08-[address] [facility] 00:00:00 (12+) [code = Medical Center DEPRESSION SCREENING (12+)] Future Scheduled 2021-08-[address] [facility] 00:00:00 (12+) [code = Medical Center DEPRESSION SCREENING (12+)] Future Scheduled 2021-08-[address] [facility] 00:00:00 (12+) [code = Medical Center DEPRESSION SCREENING (12+)] Future Scheduled 2021-08-[address] [facility] 00:00:00 (12+) [code = Medical Center DEPRESSION SCREENING (12+)] Future Scheduled 2021-08-[address] [facility] 00:00:00 (12+) [code = Medical Center DEPRESSION SCREENING (12+)] Future Scheduled 2021-08-[address] [facility] 00:00:00 (12+) [code = Medical Center DEPRESSION SCREENING (12+)] Future Scheduled 2021-08-[address] [facility] 00:00:00 (12+) [code = Medical Center DEPRESSION SCREENING (12+)] Future Scheduled 2021-08-[address] [facility] 00:00:00 (12+) [code = Medical Center DEPRESSION SCREENING (12+)] Future Scheduled 2021-08-[address] [facility] 00:00:00 (12+) [code = Medical Center DEPRESSION SCREENING (12+)] Future Scheduled 2021-08-[address] [facility] 00:00:00 (12+) [code = Medical Center DEPRESSION SCREENING (12+)] Future Scheduled 2021-08-[address] [facility] 00:00:00 (12+) [code = Medical Center DEPRESSION SCREENING (12+)] Future Scheduled 2021-08-[address] [facility] 00:00:00 (12+) [code = Medical Center DEPRESSION SCREENING (12+)] Future Scheduled 2021-08-[address] [facility] 00:00:00 (12+) [code = Medical Center DEPRESSION SCREENING (12+)] Future Scheduled 2021-08-[address] [facility] 00:00:00 (12+) [code = Medical Center DEPRESSION SCREENING (12+)] Future Scheduled 2021-08-[address] [facility] 00:00:00 (12+) [code = Medical Center DEPRESSION SCREENING (12+)] Future Scheduled 2021-08-[address] [facility] 00:00:00 (12+) [code = Medical Center DEPRESSION SCREENING (12+)] Future Scheduled 2021-08-[address] [facility] 00:00:00 (12+) [code = Medical Center DEPRESSION SCREENING (12+)] Future Scheduled 2021-08-[address] [facility] 00:00:00 (12+) [code = Medical Center DEPRESSION SCREENING (12+)] Future Scheduled 2021-08-[address] [facility] 00:00:00 (12+) [code = Medical Center DEPRESSION SCREENING (12+)] Future Scheduled 2021-08-[address] [facility] 00:00:00 (12+) [code = Medical Center DEPRESSION SCREENING (12+)] Future Scheduled 2008 SHINGLES VACCINES ([address] [facility] 00:00:00 2) [code = SHINGLES [facility] Center VACCINES (1 of 2)] Future Scheduled 2008 SHINGLES VACCINES ([address] [facility] 00:00:00 2) [code = SHINGLES [facility] VACCINES (1 of 2)] Future Scheduled 2008 SHINGLES VACCINES ([address] [facility] 00:00:00 2) [code = SHINGLES [facility] VACCINES (1 of 2)] Future Scheduled 2008 SHINGLES VACCINES ([address] [facility] 00:00:00 2) [code = SHINGLES [facility] VACCINES (1 of 2)] Future Scheduled 2008 SHINGLES VACCINES ([address] [facility] 00:00:00 2) [code = SHINGLES [facility] VACCINES (1 of 2)] Future Scheduled 2008 SHINGLES VACCINES ([address] [facility] 00:00:00 2) [code = SHINGLES [facility] VACCINES (1 of 2)] Future Scheduled 2008 SHINGLES VACCINES ([address] [facility] 00:00:00 2) [code = SHINGLES [facility] VACCINES (1 of 2)] Future Scheduled 2008 SHINGLES VACCINES ([address] [facility] 00:00:00 2) [code = SHINGLES [facility] VACCINES (1 of 2)] Future Scheduled 2008 SHINGLES VACCINES ([address] [facility] 00:00:00 2) [code = SHINGLES [facility] VACCINES (1 of 2)] Future Scheduled 2008 SHINGLES VACCINES ([address] [facility] 00:00:00 2) [code = SHINGLES [facility] VACCINES (1 of 2)] Future Scheduled 2008 SHINGLES VACCINES ([address] [facility] 00:00:00 2) [code = SHINGLES [facility] VACCINES (1 of 2)] Future Scheduled 2008 SHINGLES VACCINES ([address] [facility] 00:00:00 2) [code = SHINGLES [facility] VACCINES (1 of 2)] Future Scheduled 2008 SHINGLES VACCINES ([address] [facility] 00:00:00 2) [facility])] Future Scheduled 2008 SHINGLES VACCINES ([address] [facility] 00:00:00 2) [[facility] (1 of 2)] Future Scheduled 2008 SHINGLES VACCINES ([address] [facility] 00:00:00 2) [code [facility] (1 of 2)] Future Scheduled 2008 SHINGLES VACCINES ([address] [facility] 00:00:00 2) [code [facility] (1 of 2)] Future Scheduled 2008 SHINGLES VACCINES ([address] [facility] 00:00:00 2) [code [facility] (1 of 2)] Future Scheduled 2008 SHINGLES VACCINES ([address] [facility] 00:00:00 2) [code [facility] (1 of 2)] Future Scheduled 2008 SHINGLES VACCINES ([address] [facility] 00:00:00 2) [code [facility] (1 of 2)] Future Scheduled 2008 SHINGLES VACCINES ([address] [facility] 00:00:00 2) [code [facility]ES (1 of 2)] Future Scheduled 2008 SHINGLES VACCINES ([address] [facility] 00:00:00 2) [code = [facility]ES (1 of 2)] Future Scheduled 2008 SHINGLES VACCINES ([address] [facility] 00:00:00 2) [code = [facility] (1 of 2)] Future Scheduled 2008 SHINGLES VACCINES ([address] [facility] 00:00:00 2) [code [facility] (1 of 2)] Future Scheduled 2003 Lipid panel (procedure) [facility] 00:00:00 [code = [id number]] [facility] Future Scheduled 2003 Lipid panel (procedure) [facility] 00:00:00 [code = [id number]] [facility] Future Scheduled 2003 Lipid panel (procedure) [facility] 00:00:00 [code = [id number]] [facility] Future Scheduled 2003 Lipid panel (procedure) [facility] 00:00:00 [code = [id number]] [facility] Future Scheduled 2003 Lipid panel (procedure) [facility] 00:00:00 [code = [id number]] [facility] Future Scheduled 2003 Lipid panel (procedure) [facility] 00:00:00 [code = [id number]] [facility] Future Scheduled 2003 Lipid panel (procedure) [facility] 00:00:00 [code = [id number]] [facility] Future Scheduled 2003 Lipid panel (procedure) [facility] 00:00:00 [code = [id number]] [facility] Future Scheduled 2003 Lipid panel (procedure) [facility] 00:00:00 [code = [id number]] [facility] Future Scheduled 2003 Lipid panel (procedure) [facility] 00:00:00 [code = [id number]] [facility] Future Scheduled 2003 Lipid panel (procedure) [facility] 00:00:00 [code = [id number]] [facility] Future Scheduled 2003 Lipid panel (procedure) [facility] 00:00:00 [code = [id number]] [facility] Future Scheduled 2003 Lipid panel (procedure) [facility] 00:00:00 [code = [id number]] [facility] Future Scheduled 2003 Lipid panel (procedure) [facility] 00:00:00 [code = [id number]] [facility] Future Scheduled 2003 Lipid panel (procedure) [facility] 00:00:00 [code = [id number]] [facility] Future Scheduled 2003 Lipid panel (procedure) [facility] 00:00:00 [code = 60539137] [facility] Future Scheduled 2003 Lipid panel (procedure) [facility] 00:00:00 [code = [id number]] [facility] Future Scheduled 2003 Lipid panel (procedure) [facility] 00:00:00 [code = [id number]] [facility] Future Scheduled 2003 Lipid panel (procedure) [facility] 00:00:00 [code = [id number]] [facility] Future Scheduled 2003 Lipid panel (procedure) [facility] 00:00:00 [code = 57245391] [facility] Future Scheduled 2003 Lipid panel (procedure) [facility] 00:00:00 [code = 24989532] [facility] Future Scheduled 2003 Lipid panel (procedure) [facility] 00:00:00 [code = [id number]] [facility] Future Scheduled 2003 Lipid panel (procedure) [facility] 00:00:00 [code = [id number]] [facility] Ce [facility]ter Future Scheduled 1979 Screening for malignant [facility] 00:00:00 neoplasm of cervix Medical C enter (procedure) [code = 286101332] Future Scheduled 1979 Screening for malignant [facility] 00:00:00 neoplasm of cervix Medical C enter (procedure) [code = [id number]] Future Scheduled 1979 Screening for malignant [facility] 00:00:00 neoplasm of cervix Medical C enter (procedure) [code = 572654841] Future Scheduled 1979 Screening for malignant [facility] 00:00:00 neoplasm of cervix Medical C enter (procedure) [code = 006852560] Future Scheduled 1979 Screening for malignant [facility] 00:00:00 neoplasm of cervix Medical C enter (procedure) [code = 912815644] Future Scheduled 1979 Screening for malignant [facility] 00:00:00 neoplasm of cervix Medical C enter (procedure) [code = 714366719] Future Scheduled 1979 Screening for malignant [facility] 00:00:00 neoplasm of cervix Medical C enter (procedure) [code = 312959318] Future Scheduled 1979 Screening for malignant [facility] 00:00:00 neoplasm of cervix Medical C enter (procedure) [code = 887189516] Future Scheduled 1979 Screening for malignant [facility] 00:00:00 neoplasm of cervix Medical C enter (procedure) [code = 993220615] Future Scheduled 1979 Screening for malignant [facility] 00:00:00 neoplasm of cervix Medical C enter (procedure) [code = 309682335] Future Scheduled 1979 Screening for malignant [facility] 00:00:00 neoplasm of cervix Medical C enter (procedure) [code = 374862701] Future Scheduled 1979 Screening for malignant [facility] 00:00:00 neoplasm of cervix Medical C enter (procedure) [code = 516887908] Future Scheduled 1979 Screening for malignant [facility] 00:00:00 neoplasm of cervix Medical C enter (procedure) [code = 041076131] Future Scheduled 1979 Screening for malignant [facility] 00:00:00 neoplasm of cervix Medical C enter (procedure) [code = 599274725] Future Scheduled 1979 Screening for malignant [facility] 00:00:00 neoplasm of cervix Medical C enter (procedure) [code = 839674718] Future Scheduled 1979 Screening for malignant [facility] 00:00:00 neoplasm of cervix Medical C enter (procedure) [code = 435598160] Future Scheduled 1979 Screening for malignant [facility] 00:00:00 neoplasm of cervix Medical C enter (procedure) [code = 198011084] Future Scheduled 1979 Screening for malignant [facility] 00:00:00 neoplasm of cervix Medical C enter (procedure) [code = 773343290] Future Scheduled 1979 Screening for malignant [facility] 00:00:00 neoplasm of cervix Medical C enter (procedure) [code = 188244044] Future Scheduled 1979 Screening for malignant [facility] 00:00:00 neoplasm of cervix Medical C enter (procedure) [code = 889771194] Future Scheduled 1979 Screening for malignant [facility] 00:00:00 neoplasm of cervix Medical C enter (procedure) [code = 922774146] Future Scheduled 1979 Screening for malignant [facility] 00:00:00 neoplasm of cervix Medical C enter (procedure) [code = 078589530] Future Scheduled 1979 Screening for malignant [facility] 00:00:00 neoplasm of cervix Medical C enter (procedure) [code = 929455542] Future Scheduled 1977 DTAP/TDAP/TD [facility]INES [facility] 00:00:00 (1 - Tdap) [code = Medical C enter DTAP/TDAP/TD VACCINES (1 - Tdap)] Future Scheduled 1977 DTAP/TDAP/TD [facility]INES [facility] 00:00:00 (1 - Tdap) [code = Medical C enter DTAP/TDAP/TD VACCINES (1 - Tdap)] Future Scheduled 1977 DTAP/TDAP/TD V[facility]INES [facility] 00:00:00 (1 - Tdap) [code = Medical C enter DTAP/TDAP/TD VACCINES (1 - Tdap)] Future Scheduled 1977 DTAP/TDAP/TD [facility]INES [facility] 00:00:00 (1 - Tdap) [code = Medical C enter DTAP/TDAP/TD VACCINES (1 - Tdap)] Future Scheduled 1977 DTAP/TDAP/TD [facility]INES [facility] 00:00:00 (1 - Tdap) [code = Medical C enter DTAP/TDAP/TD VACCINES (1 - Tdap)] Future Scheduled 1977 DTAP/TDAP/TD [facility]INES [facility] 00:00:00 (1 - Tdap) [code = Medical C enter DTAP/TDAP/TD VACCINES (1 - Tdap)] Future Scheduled 1977 DTAP/TDAP/TD [facility]INES [facility] 00:00:00 (1 - Tdap) [code = Medical C enter DTAP/TDAP/TD VACCINES (1 - Tdap)] Future Scheduled 1977 DTAP/TDAP/TD V[facility]INES [facility] 00:00:00 (1 - Tdap) [code = Medical C enter DTAP/TDAP/TD VACCINES (1 - Tdap)] Future Scheduled 1977 DTAP/TDAP/TD V[facility]INES [facility] 00:00:00 (1 - Tdap) [code = Medical C enter DTAP/TDAP/TD VACCINES (1 - Tdap)] Future Scheduled 1977 DTAP/TDAP/TD VACCINES [facility] 00:00:00 (1 - Tdap) [code = Medical C enter DTAP/TDAP/TD VACCINES (1 - Tdap)] Future Scheduled 1977 DTAP/TDAP/TD VACCINES [facility] 00:00:00 (1 - Tdap) [code = Medical C enter DTAP/TDAP/TD VACCINES (1 - Tdap)] Future Scheduled 1977 DTAP/TDAP/TD V[facility]INES [facility] 00:00:00 (1 - Tdap) [code = Medical C enter DTAP/TDAP/TD VACCINES (1 - Tdap)] Future Scheduled 1977 DTAP/TDAP/TD V[facility]INES [facility] 00:00:00 (1 - Tdap) [code = Medical C enter DTAP/TDAP/TD VACCINES (1 - Tdap)] Future Scheduled 1977 DTAP/TDAP/TD [facility]INES [facility] 00:00:00 (1 - Tdap) [code = Medical C enter DTAP/TDAP/TD VACCINES (1 - Tdap)] Future Scheduled 1977 [facility] (1 - Tdap) [code = Medical C enter DTAP/TDAP/TD VACCINES (1 - Tdap)] Future Scheduled 1977 [facility] (1 - Tdap) [code = Medical C enter DTAP/TDAP/TD VACCINES (1 - Tdap)] Future Scheduled 1977 DTAP/TDAP/TD VACCINES [facility] 00:00:00 (1 - Tdap) [code = Medical C enter DTAP/TDAP/TD VACCINES (1 - Tdap)] Future Scheduled 1977 DTAP/TDAP/TD VACCINES [facility] 00:00:00 (1 - Tdap) [code = Medical C enter DTAP/TDAP/TD VACCINES (1 - Tdap)] Future Scheduled 1977 DTAP/TDAP/TD V[facility]INES [facility] 00:00:00 (1 - Tdap) [code = Medical C enter DTAP/TDAP/TD VACCINES (1 - Tdap)] Future Scheduled 1977 DTAP/TDAP/TD V[facility]INES [facility] 00:00:00 (1 - Tdap) [code = Medical C enter DTAP/TDAP/TD VACCINES (1 - Tdap)] Future Scheduled 1977 DTAP/TDAP/TD VACCINES [facility] 00:00:00 (1 - Tdap) [code = Medical C enter DTAP/TDAP/TD VACCINES (1 - Tdap)] Future Scheduled 1977 DTAP/TDAP/TD [facility]INES [facility] 00:00:00 (1 - Tdap) [code = Medical C enter DTAP/TDAP/TD VACCINES (1 - Tdap)] Future Scheduled 1977 DTAP/TDAP/TD VACCINES [facility] 00:00:00 (1 - Tdap) [code = Medical C enter DTAP/TDAP/TD VACCINES (1 - Tdap)] Future Scheduled 1976 [facility]CRE[facility] [code [facility]] Future Scheduled 1976 [facility]IS [facility]:00:00 [code = [facility] SCREENING] Future Scheduled 1976 [facility] 00:00:00 [code = [facility] SCREENING] Future Scheduled 1976 [facility] 00:00:00 [code = [facility] SCREENING] Future Scheduled 1976 [facility]:00:00 [code = [facility] SCREENING] Future Scheduled 1976 [facility] 00:00:00 [code = [facility] SCREENING] Future Scheduled 1976 [facility] 00:00:00 [code = [facility] SCREENING] Future Scheduled 1976 [facility] 00:00:00 [code = [facility] SCREENING] Future Scheduled 1976 [facility] 00:00:00 [code = [facility] SCREENING] Future Scheduled 1976 [facility] 00:00:00 [code = [facility] SCREENING] Future Scheduled 1976 [facility] 00:00:00 [code = [facility] SCREENING] Future Scheduled 1976 [facility] 00:00:00 [code = [facility] SCREENING] Future Scheduled 1976 [facility] 00:00:00 [code = [facility] SCREENING] Future Scheduled 1976 [facility] 00:00:00 [code = [facility] SCREENING] Future Scheduled 1976 [facility] 00:00:00 [code = [facility] SCREENING] Future Scheduled 1976 [facility] 00:00:00 [code = [facility] SCREENING] Future Scheduled 1976 [facility]:00:00 [code = [facility] SCREENING] Future Scheduled 1976 [facility] 00:00:00 [code = [facility] SCREENING] Future Scheduled 1976 [facility] 00:00:00 [code = [facility] SCREENING] Future Scheduled 1976 [facility]:00:00 [code = [facility] SCREENING] Future Scheduled 1976 [facility] 00:00:00 [code = [facility]IS C [facility] SCREENING] Future Scheduled 1976 [facility] 00:00:00 [code = [facility] SCREENING] Future Scheduled [facility]:00:00 [code = [facility]IS C [facility] SCREENING] Future Scheduled [address] [facility] 00:00:00 [facility] Screening (12+) [code = Tobacco Cessation Counseling and Screening (12+)] Future Scheduled [address] [facility] 00:00:00 Counseling and Medical Cente r Screening (12+) [code = Tobacco Cessation Counseling and Screening (12+)] Future Scheduled [address] [facility] 00:00:00 Counseling and Medical Cente r Screening (12+) [code = Tobacco Cessation Counseling and Screening (12+)] Future Scheduled [address] [facility] 00:00:00 Counseling and Medical Cent[facility] r Screening (12+) [code = Tobacco Cessation Counseling and Screening (12+)] Future Scheduled [address] [facility] 00:00:00 Counseling and Medical Cente r Screening (12+) [code = Tobacco Cessation Counseling and Screening (12+)] Future Scheduled [address] [facility] 00:00:00 Counseling and Medical Cent[facility] r Screening (12+) [code = Tobacco Cessation Counseling and Screening (12+)] Future Scheduled [address] [facility] 00:00:00 Counseling and Medical Cente r Screening (12+) [code = Tobacco Cessation Counseling and Screening (12+)] Future Scheduled [address] [facility] 00:00:00 Counseling and Medical Cent[facility] r Screening (12+) [code = Tobacco Cessation Counseling and Screening (12+)] Future Scheduled [address] [facility] 00:00:00 Counseling and Medical Cente r Screening (12+) [code = Tobacco Cessation Counseling and Screening (12+)] Future Scheduled [address] [facility] 00:00:00 Counseling and Medical Cent[facility] r Screening (12+) [code = Tobacco Cessation Counseling and Screening (12+)] Future Scheduled [address] [facility] 00:00:00 Counseling and Medical Cente r Screening (12+) [code = Tobacco Cessation Counseling and Screening (12+)] Future Scheduled [address] [facility] 00:00:00 Counseling and Medical Cente r Screening (12+) [code = Tobacco Cessation Counseling and Screening (12+)] Future Scheduled [address] [facility] 00:00:00 Counseling and Medical Cente r Screening (12+) [code = Tobacco Cessation Counseling and Screening (12+)] Future Scheduled [address] [facility] 00:00:00 Counseling and Medical Cent[facility] r Screening (12+) [code = Tobacco Cessation Counseling and Screening (12+)] Future Scheduled [address] [facility] 00:00:00 Counseling and Medical Cent[facility] r Screening (12+) [code = Tobacco Cessation Counseling and Screening (12+)] Future Scheduled [address] [facility] 00:00:00 Counseling and [facility] Cent[facility] r Screening (12+) [code = Tobacco Cessation Counseling and Screening (12+)] Future Scheduled [address] [facility] 00:00:00 Counseling and Medical Cent[facility] r Screening (12+) [code = Tobacco Cessation Counseling and Screening (12+)] Future Scheduled [address] [facility] 00:00:00 Counseling and Medical Cent[facility] r Screening (12+) [code = Tobacco Cessation Counseling and Screening (12+)] Future Scheduled 1958 COVID-19 VACCINE (#1) [facility]:00 [code = COVID-[address] VACCINE (#1)] Future Scheduled 1958 COVID-19 VACCINE (#1) [facility]:00:00 [code = COVID-[address] VACCINE (#1)] Future Scheduled 1958 COVID-19 VACCINE (#1) [facility]:00:00 [code = COVID-[address] VACCINE (#1)] Future Scheduled 1958 COVID-19 VACCINE (#1) [facility]:00:00 [code = COVID-[address] VACCINE (#1)] Future Scheduled 1958 COVID-19 VACCINE (#1) [facility]:00:00 [code = COVID-[address] VACCINE (#1)] Future Scheduled 1958 COVID-19 VACCINE (#1) [facility]:00:00 [code = COVID-[address] VACCINE (#1)] Future Scheduled 1958 COVID-19 VACCINE (#1) [facility]:00:00 [code = COVID-[address] VACCINE (#1)] Future Scheduled 1958 COVID-19 VACCINE (#1) [facility]:00:00 [code = COVID-[address] VACCINE (#1)] Future Scheduled 1958 COVID-19 VACCINE (#1) [facility]:00:00 [code = COVID-[address] VACCINE (#1)] Future Scheduled 1958 COVID-19 VACCINE (#1) [facility]:00:00 [code = COVID-[address] VACCINE (#1)] Future Scheduled 1958 COVID-19 VACCINE (#1) [facility] 00:00:00 [code = COVID-[address] VACCINE (#1)] Future Scheduled 1958 COVID-19 VACCINE (#1) [facility] 00:00:00 [code = COVID-[address] VACCINE (#1)] Future Scheduled 1958 COVID-19 VACCINE (#1) [facility] 00:00:00 [code = COVID-[address] VACCINE (#1)] Future Scheduled 1958 COVID-19 VACCINE (#1) [facility]:00:00 [code = COVID-[address] VACCINE (#1)] Future Scheduled 1958 COVID-19 VACCINE (#1) [facility] 00:00:00 [code = COVID-[address] VACCINE (#1)] Future Scheduled 1958 COVID-19 VACCINE (#1) [facility] 00:00:00 [code = COVID-[address] VACCINE (#1)] Future Scheduled 1958 COVID-19 VACCINE (#1) [facility] 00:00:00 [code = COVID-[address] VACCINE (#1)] Future Scheduled 1958 COVID-19 VACCINE (#1) [facility] 00:00:00 [code = COVID-[address] VACCINE (#1)] Future Scheduled 1958 COVID-19 VACCINE (#1) [facility] 00:00:00 [code = COVID-[address] VACCINE (#1)] Future Scheduled 1958 COVID-19 VACCINE (#1) [facility]:00:00 [code = COVID-[address] VACCINE (#1)] Future Scheduled 1958 COVID-19 VACCINE (#1) [facility] 00:00:00 [code = COVID-[address] VACCINE (#1)] Future Scheduled 1958 COVID-19 VACCINE (#1) [facility] 00:00:00 [code = COVID-[address] VACCINE (#1)] Future Scheduled 1958 COVID-19 VACCINE (#1) [facility] 00:00:00 [code = COVID-[address] VACCINE (#1)] Future Scheduled 1958 Sigmoidoscopy [code = [facility] S[facility]oscopy] [facility] Cent[facility] r Future Scheduled 1958 Screening for malignant [facility] 00:00:00 neoplasm of colon Medical Ce nter (procedure) [code = 862066457] Future Scheduled 1958 Sigmoidoscopy [code = [facility] S[facility] Screening for malignant [facility] 00:00:00 neoplasm of breast Medical C enter (procedure) [code = 709418923] Future Scheduled 1958 CT Colonography (combo) [facility] 00:00:00 [code = CT Colonography [facility] (combo)] Future Scheduled 1958 Screening for malignant [facility] 00:00:00 neoplasm of colon Medical Ce [facility]ter (procedure) [code = 960692488] Future Scheduled 1958 Screening for malignant [facility] 00:00:00 neoplasm of colon Medical Ce [facility]ter (procedure) [code = 064683452] Future Scheduled 1958 Screening for malignant [facility] 00:00:00 neoplasm of colon Medical Ce nter (procedure) [code = 635583308] Future Scheduled 1958 Screening for malignant [facility] 00:00:00 neoplasm of colon Medical Ce nter (procedure) [code = 669721305] Future Scheduled 1958 Sigmoidoscopy [facility]code = [facility] S[facility]oidoscopy] Medical Cent[facility] r Future Scheduled 1958 Screening for malignant [facility] 00:00:00 neoplasm of breast Medical C enter (procedure) [code = 025608315] Future Scheduled 1958 CT Colonography (combo) [facility] 00[facility]00:00 [code = CT Colonography [facility] (combo)] Future Scheduled 1958 Screening for malignant [facility] 00:00:00 neoplasm of colon Medical Ce [facility]ter (procedure) [code = 174375918] Future Scheduled 1958 Screening for malignant [facility] 00:00:00 neoplasm of colon Medical Ce nter (procedure) [code = 140808520] Future Scheduled 1958 Screening for malignant [facility] 00:00:00 neoplasm of colon Medical Ce nter (procedure) [code = 319058180] Future Scheduled 1958 Screening for malignant [facility] 00:00:00 neoplasm of colon Medical Ce nter (procedure) [code = 168911046] Future Scheduled 1958 Sigmoidoscopy [code = [facility] Sigmoidoscopy] Medical Cent[facility] r Future Scheduled 1958 Screening for malignant [facility] 00:00:00 neoplasm of breast Medical C enter (procedure) [code = 131800051] Future Scheduled 1958 CT Colonography (combo) [facility] 00:00:00 [code = CT Colonography [facility] (combo)] Future Scheduled 1958 Screening for malignant [facility] 00:00:00 neoplasm of colon Medical Ce [facility]ter (procedure) [code = 356139536] Future Scheduled 1958 Screening for malignant [facility] 00:00:00 neoplasm of colon Medical Ce [facility]ter (procedure) [code = 204013137] Future Scheduled 1958 Screening for malignant [facility] 00:00:00 neoplasm of colon Medical Ce [facility]ter (procedure) [code = 857540590] Future Scheduled 1958 Screening for malignant [facility] 00:00:00 neoplasm of colon Medical Ce [facility]ter (procedure) [code = 866097079] Future Scheduled 1958 Sigmoidoscopy [code = [facility] S[facility]oidoscopy] Medical Cent[facility] r Future Scheduled 1958 Screening for malignant [facility] 00:00:00 neoplasm of breast Medical C enter (procedure) [code = 118195936] Future Scheduled 1958 CT Colonography (combo) [facility] 00:00:00 [code = CT [facility] (combo)] Future Scheduled 1958 Screening for malignant [facility] 00:00:00 neoplasm of colon Medical Ce [facility]ter (procedure) [code = 578329676] Future Scheduled 1958 Screening for malignant [facility] 00:00:00 neoplasm of colon Medical Ce nter (procedure) [code = 464587780] Future Scheduled 1958 Screening for malignant [facility] 00:00:00 neoplasm of colon Medical Ce nter (procedure) [code = 243711668] Future Scheduled 1958 Screening for malignant [facility] 00:00:00 neoplasm of colon Medical Ce [facility]ter (procedure) [code = 558475696] Future Scheduled 1958 Sigmoidoscopy [code = [facility] S[facility]oidoscopy] Medical Cent[facility] Future Scheduled 1958 Screening for malignant [facility] 00:00:00 neoplasm of breast Medical C enter (procedure) [code = 737143426] Future Scheduled 1958 CT Colonography (combo) [facility] 00:00:00 [code = [facility] (com[facility])] Future Scheduled 1958 Screening for malignant [facility] 00:00:00 neoplasm of colon Medical Ce [facility]ter (procedure) [code = 511255856] Future Scheduled 1958 Screening for malignant [facility] 00:00:00 neoplasm of colon Medical Ce [facility]ter (procedure) [code = 486808377] Future Scheduled 1958 Screening for malignant [facility] 00:00:00 neoplasm of colon Medical Ce [facility]ter (procedure) [code = 386143199] Future Scheduled 1958 Screening for malignant [facility] 00:00:00 neoplasm of colon Medical Ce [facility]ter (procedure) [code = 191950278] Future Scheduled 1958 Sigmoidoscopy [facility]code = [facility] S[facility]oscopy] Medical Cent[facility] r Future Scheduled 1958 Screening for malignant [facility] 00:00:00 neoplasm of breast Medical C enter (procedure) [code = 657713963] Future Scheduled 1958 Screening for malignant [facility] 00:00:00 neoplasm of breast Medical C enter (procedure) [code = [id number]] Future Scheduled 1958 CT Colonography (combo) [facility] 00:00:00 [code = CT [facility] ([facility] Future Scheduled 1958 Screening for malignant [facility] 00:00:00 neoplasm of colon Medical Ce nter (procedure) [code = [id number]] Future Scheduled 1958 Screening for malignant [facility] 00:00:00 neoplasm of colon Medical Ce nter (procedure) [code = 701181273] Future Scheduled 1958 Screening for malignant [facility] 00:00:00 neoplasm of colon Medical Ce nter (procedure) [code = 819920318] Future Scheduled 1958 Screening for malignant [facility] 00:00:00 neoplasm of colon Medical Ce nter (procedure) [code = 861258547] Future Scheduled 1958 Sigmoidoscopy [facility]code = [facility] Future Scheduled 1958 CT Colonography (combo) [facility] 00:00:00 [code = CT [facility] ([facility])] Future Scheduled 1958 Screening for malignant [facility] 00:00:00 neoplasm of breast Medical C enter (procedure) [code = 428602518] Future Scheduled 1958 CT Colonography (combo) [facility] 00:00:00 [code = CT [facility] ([facility])] Future Scheduled 1958 Screening for malignant [facility] 00:00:00 neoplasm of colon Medical Ce nter (procedure) [code = 126427371] Future Scheduled 1958 Screening for malignant [facility] 00:00:00 neoplasm of colon Medical Ce nter (procedure) [code = 950954855] Future Scheduled 1958 Screening for malignant [facility] 00:00:00 neoplasm of colon Medical Ce nter (procedure) [code = 834844401] Future Scheduled 1958 Screening for malignant [facility] 00:00:00 neoplasm of colon Medical Ce nter (procedure) [code = 398433219] Future Scheduled 1958 Screening for malignant [facility] 00:00:00 neoplasm of colon Medical Ce nter (procedure) [code = 228884860] Future Scheduled 1958 Sigmoidoscopy [facility]code = [facility]] [facility] Future Scheduled 1958 Screening for malignant [facility] 00:00:00 neoplasm of colon Medical Ce nter (procedure) [code = 900266355] Future Scheduled 1958 Screening for malignant [facility] 00:00:00 neoplasm of breast Medical C enter (procedure) [code = 383388390] Future Scheduled 1958 CT Colonography (combo) [facility] 00:00:00 [code = CT Colonography [facility] (combo)] Future Scheduled 1958 Screening for malignant [facility] 00:00:00 neoplasm of colon Medical Ce nter (procedure) [code = 425364524] Future Scheduled 1958 Screening for malignant [facility] 00:00:00 neoplasm of colon Medical Ce nter (procedure) [code = 096943285] Future Scheduled 1958 Screening for malignant [facility] 00:00:00 neoplasm of colon Medical Ce nter (procedure) [code = 149217333] Future Scheduled 1958 Screening for malignant [facility] 00:00:00 neoplasm of colon Medical Ce nter (procedure) [code = 307722500] Future Scheduled 1958 Sigmoidoscopy [code = [facility] S[facility]] [facility] Cent[facility] Future Scheduled 1958 Screening for malignant [facility] 00:00:00 neoplasm of colon Medical Ce nter (procedure) [code = 014798814] Future Scheduled 1958 Screening for malignant [facility] 00:00:00 neoplasm of breast Medical C enter (procedure) [code = 009905382] Future Scheduled 1958 Screening for malignant [facility] 00:00:00 neoplasm of colon Medical Ce nter (procedure) [code = 149726309] Future Scheduled 1958 CT Colonography (combo) [facility] 00:00:00 [code = CT Colonography [facility] (combo)] Future Scheduled 1958 Screening for malignant [facility] 00:00:00 neoplasm of colon Medical Ce nter (procedure) [code = 471550632] Future Scheduled 1958 Screening for malignant [facility] 00:00:00 neoplasm of colon Medical Ce nter (procedure) [code = 155655608] Future Scheduled 1958 Screening for malignant [facility] 00:00:00 neoplasm of colon Medical Ce nter (procedure) [code = 580265446] Future Scheduled 1958 Screening for malignant [facility] 00:00:00 neoplasm of colon Medical Ce nter (procedure) [code = 578503191] Future Scheduled 1958 Sigmoidoscopy [code = [facility]oscopy] [facility] Cent[facility] Future Scheduled 1958 [facility]oscopy [code [facility] S[facility]] [facility] Future Scheduled 1958 Screening for malignant [facility] 00:00:00 neoplasm of breast Medical C enter (procedure) [code = 007021987] Future Scheduled 1958 CT Colonography (combo) [facility] 00:00:00 [code = CT Colonography [facility] (combo)] Future Scheduled 1958 Screening for malignant [facility] 00:00:00 neoplasm of colon Medical Ce nter (procedure) [code = 650566792] Future Scheduled 1958 Screening for malignant [facility] 00:00:00 neoplasm of colon Medical Ce nter (procedure) [code = 542275303] Future Scheduled 1958 Screening for malignant [facility] 00:00:00 neoplasm of colon Medical Ce nter (procedure) [code = 349656246] Future Scheduled 1958 Screening for malignant [facility] 00:00:00 neoplasm of colon Medical Ce nter (procedure) [code = 373855715] Future Scheduled 1958 Sigmoidoscopy [code = [facility] 00:[facility] S[facility]oscopy] [facility] Cent[facility] Future Scheduled 1958 Screening for malignant [facility] 00:00:00 neoplasm of breast Medical C enter (procedure) [code = 958756037] Future Scheduled 1958 CT Colonography (combo) [facility] 00:00:00 [code = CT Colonography [facility] (combo)] Future Scheduled 1958 Screening for malignant [facility] 00:00:00 neoplasm of colon Medical Ce nter (procedure) [code = 346065270] Future Scheduled 1958 Screening for malignant [facility] 00:00:00 neoplasm of colon Medical Ce nter (procedure) [code = 029112693] Future Scheduled 1958 Screening for malignant [facility] 00:00:00 neoplasm of colon Medical Ce nter (procedure) [code = 722204343] Future Scheduled 1958 Screening for malignant [facility] 00:00:00 neoplasm of colon Medical Ce nter (procedure) [code = 756899769] Future Scheduled 1958 Sigmoidoscopy [code = [facility] S[facility]oscopy] [facility] Cent[facility] Future Scheduled 1958 Screening for malignant [facility] 00:00:00 neoplasm of breast Medical C enter (procedure) [code = 294668048] Future Scheduled 1958 CT Colonography (combo) [facility] 00:00:00 [code = CT Colonography [facility] (combo)] Future Scheduled 1958 Screening for malignant [facility] 00:00:00 neoplasm of colon Medical Ce nter (procedure) [code = 606411846] Future Scheduled 1958 Screening for malignant [facility] 00:00:00 neoplasm of colon Medical Ce nter (procedure) [code = 811052864] Future Scheduled 1958 Screening for malignant [facility] 00:00:00 neoplasm of colon Medical Ce nter (procedure) [code = 842725810] Future Scheduled 1958 Screening for malignant [facility] 00:00:00 neoplasm of colon Medical Ce nter (procedure) [code = 105865300] Future Scheduled 1958 Sigmoidoscopy [code = [facility] 00:[facility] S[facility]oidoscopy] [facility] Cent[facility] Future Scheduled 1958 Screening for malignant [facility] 00:00:00 neoplasm of breast Medical C enter (procedure) [code = 953497033] Future Scheduled 1958 CT Colonography (combo) [facility] 00:00:00 [code = CT Colonography [facility] (combo)] Future Scheduled 1958 Screening for malignant [facility] 00:00:00 neoplasm of colon Medical Ce nter (procedure) [code = 434228608] Future Scheduled 1958 Screening for malignant [facility] 00:00:00 neoplasm of colon Medical Ce nter (procedure) [code = 135847093] Future Scheduled 1958 Screening for malignant [facility] 00:00:00 neoplasm of colon Medical Ce nter (procedure) [code = 923595301] Future Scheduled 1958 Screening for malignant [facility] 00:00:00 neoplasm of colon Medical Ce nter (procedure) [code = 619357111] Future Scheduled 1958 Sigmoidoscopy [code = [facility]] [facility] Cent[facility] Future Scheduled 1958 Screening for malignant [facility] 00:00:00 neoplasm of breast Medical C enter (procedure) [code = 395158047] Future Scheduled 1958 CT Colonography (combo) [facility] 00:00:00 [code = CT Colonography [facility] (combo)] Future Scheduled 1958 Screening for malignant [facility] 00:00:00 neoplasm of colon Medical Ce nter (procedure) [code = 803312189] Future Scheduled 1958 Screening for malignant [facility] 00:00:00 neoplasm of colon Medical Ce nter (procedure) [code = 505798923] Future Scheduled 1958 Screening for malignant [facility] 00:00:00 neoplasm of colon Medical Ce nter (procedure) [code = 537899269] Future Scheduled 1958 Screening for malignant [facility] 00:00:00 neoplasm of colon Medical Ce nter (procedure) [code = 566710669] Future Scheduled 1958 Sigmoidoscopy [facility]code = [facility] Screening for malignant [facility] 00:00:00 neoplasm of breast Medical C enter (procedure) [code = 436337423] Future Scheduled 1958 CT Colonography (combo) [facility] 00:00:00 [code = CT Colonography [facility] (combo)] Future Scheduled 1958 Screening for malignant [facility] 00:00:00 neoplasm of colon Medical Ce nter (procedure) [code = 179643568] Future Scheduled 1958 Screening for malignant [facility] 00:00:00 neoplasm of colon Medical Ce nter (procedure) [code = 400859864] Future Scheduled 1958 Screening for malignant [facility] 00:00:00 neoplasm of colon Medical Ce nter (procedure) [code = 638463992] Future Scheduled 1958 Screening for malignant [facility] 00:00:00 neoplasm of breast Medical C enter (procedure) [code = 327749930] Future Scheduled 1958 Screening for malignant [facility] 00:00:00 neoplasm of colon Medical Ce nter (procedure) [code = 712602203] Future Scheduled 1958 Sigmoidoscopy [facility]code = [facility] Colonography (combo) [facility] 00:00:00 [code = CT [facility] ([facility])] Future Scheduled 1958 Screening for malignant [facility] 00:00:00 neoplasm of breast Medical C enter (procedure) [code = 370749596] Future Scheduled 1958 CT Colonography (combo) [facility] 00:00:00 [code = CT [facility] ([facility])] Future Scheduled 1958 Screening for malignant [facility] 00:00:00 neoplasm of colon Medical Ce nter (procedure) [code = 962677108] Future Scheduled 1958 Screening for malignant [facility] 00:00:00 neoplasm of colon Medical Ce nter (procedure) [code = 968578054] Future Scheduled 1958 Screening for malignant [facility] 00:00:00 neoplasm of colon Medical Ce nter (procedure) [code = 623040484] Future Scheduled 1958 Screening for malignant [facility] 00:00:00 neoplasm of colon Medical Ce nter (procedure) [code = 658948243] Future Scheduled 1958 Sigmoidoscopy [code = [facility]] [facility] Screening for malignant [facility] 00:00:00 neoplasm of colon Medical Ce nter (procedure) [code = 971457647] Future Scheduled 1958 Screening for malignant [facility] 00:00:00 neoplasm of colon Medical Ce nter (procedure) [code = 089476361] Future Scheduled 1958 Screening for malignant [facility] 00:00:00 neoplasm of colon Medical Ce nter (procedure) [code = 786039795] Future Scheduled 1958 Screening for malignant [facility] 00:00:00 neoplasm of colon Medical Ce nter (procedure) [code = 124294254] Future Scheduled 1958 Screening for malignant [facility] 00:00:00 neoplasm of breast Medical C enter (procedure) [code = 106024996] Future Scheduled 1958 Sigmoidoscopy [code = [facility]] [facility] Future Scheduled 1958 Screening for malignant [facility] 00:00:00 neoplasm of breast Medical C enter (procedure) [code = 961762046] Future Scheduled 1958 CT Colonography (combo) [facility] 00:00:00 [code = CT [facility])] Future Scheduled 1958 CT Colonography (combo) [facility] 00:00:00 [code = CT [facility] ([facility])] Future Scheduled 1958 Screening for malignant [facility] 00:00:00 neoplasm of colon Medical Ce nter (procedure) [code = 616283865] Future Scheduled 1958 Screening for malignant [facility] 00:00:00 neoplasm of colon Medical Ce nter (procedure) [code = 600026989] Future Scheduled 1958 Screening for malignant [facility] 00:00:00 neoplasm of colon Medical Ce nter (procedure) [code = 488723909] Future Scheduled 1958 Screening for malignant [facility] 00:00:00 neoplasm of colon Medical Ce nter (procedure) [code = 864988251] Future Scheduled 1958 Sigmoidoscopy [code = [facility]] [facility] Future Scheduled 1958 Screening for malignant [facility] 00:00:00 neoplasm of colon Medical Ce nter (procedure) [code = 390649097] Future Scheduled 1958 Screening for malignant [facility] 00:00:00 neoplasm of breast Medical C enter (procedure) [code = 537774270] Future Scheduled 1958 CT Colonography (combo) [facility] 00:00:00 [code = CT [facility] ([facility])] Future Scheduled 1958 Screening for malignant [facility] 00:00:00 neoplasm of colon Medical Ce nter (procedure) [code = 973239355] Future Scheduled 1958 Screening for malignant [facility] 00:00:00 neoplasm of colon Medical Ce nter (procedure) [code = 964238771] Future Scheduled 1958 Screening for malignant [facility] 00:00:00 neoplasm of colon Medical Ce nter (procedure) [code = 740379855] Future Scheduled 1958 Screening for malignant [facility] 00:00:00 neoplasm of colon Medical Ce nter (procedure) [code = 856177524] Future Scheduled 1958 Screening for malignant [facility] 00:00:00 neoplasm of colon Medical Ce nter (procedure) [code = 500557920] Future Scheduled 1958 Sigmoidoscopy [code = [facility]] [facility] Cent[facility] Future Scheduled 1958 Screening for malignant [facility] 00:00:00 neoplasm of breast Medical C enter (procedure) [code = 420978046] Future Scheduled 1958 Screening for malignant [facility] 00:00:00 neoplasm of colon Medical Ce nter (procedure) [code = 318256337] Future Scheduled 1958 CT Colonography (combo) [facility] 00:00:00 [code = CT Colonography [facility] (combo)] Future Scheduled 1958 Screening for malignant [facility] 00:00:00 neoplasm of colon Medical Ce nter (procedure) [code = 712393574] Future Scheduled 1958 Screening for malignant [facility] 00:00:00 neoplasm of colon Medical Ce nter (procedure) [code = 512645227] Future Scheduled 1958 Screening for malignant [facility] 00:00:00 neoplasm of colon Medical Ce nter (procedure) [code = 829555842] Future Scheduled 1958 Screening for malignant [facility] 00:00:00 neoplasm of colon Medical Ce nter (procedure) [code = 143717449] Future Scheduled 1958 Sigmoidoscopy [code = [facility] S[facility]] [facility] Cent[facility] Future Scheduled 1958 Screening for malignant [facility] 00:00:00 neoplasm of colon Medical Ce nter (procedure) [code = 856975901] Future Scheduled 1958 Screening for malignant [facility] 00:00:00 neoplasm of breast Medical C enter (procedure) [code = 410874371] Future Scheduled 1958 CT Colonography (combo) [facility] 00:00:00 [code = CT Colonography [facility] (combo)] Future Scheduled 1958 Screening for malignant [facility] 00:00:00 neoplasm of colon Medical Ce nter (procedure) [code = 765576160] Future Scheduled 1958 Screening for malignant [facility] 00:00:00 neoplasm of colon Medical Ce nter (procedure) [code = 502276030] Future Scheduled 1958 Screening for malignant [facility] 00:00:00 neoplasm of colon Medical Ce nter (procedure) [code = 060856875] Encounters Start End Encounter Admission Attending Care Care Encounter Source Date/Time Date/Time Type Type Clinicians Facility Department ID 2022-10-21 Outpatient [facility] [id number] [place] 05:26:45 [id number] [facility] 2022-10-04 Outpatient [facility] [id number] [place] 14:10:40 [id number] [facility] 2022-10-02 Outpatient [facility] [id number] [place] 06:56:06 [id number] [facility] 2022-09-28 Outpatient Oriana ST[place]TON STLMLC STLMLC [id number] 2 Common 15:49:00 [id number] [facility] 2022-09-26 Outpatient [facility] [id number] [place] 12:18:02 [id number] [facility] 2022-09-25 Outpatient [facility] [id number] [place] 15:57:36 [id number] [facility] 2022-09-22 Outpatient [facility] [id number] [place] 15:31:39 [id number] [facility] 2022-09-21 Outpatient [facility] [id number] [place] 09:20:21 [id number] [facility] 2022-09-18 Outpatient [facility] [id number] [place] 05:18:09 [id number] [facility] 2022-09-08 Outpatient [facility] [id number] [place] 15:05:54 [id number] [facility] 2022-09-01 Outpatient [facility] [id number] [place] 13:39:51 [facility] 2022-08-28 Outpatient [facility] [id number] [place] 09:46:42 [facility] 2022-08-22 Outpatient [facility] [id number] [place] 08:43:51 [facility] 2022-08-15 Outpatient [facility] [id number] [place] 15:34:16 [facility] 2022-08-08 Outpatient [facility] [id number] [place] 15:41:17 [facility] 2022-07-27 Outpatient [facility] [id number] [place] 15:57:56 [facility] 2022-07-03 Outpatient [facility] [id number] [place] 15:13:34 [facility] 2022-06-15 Outpatient [facility] [id number] [place] 13:17:30 [facility] 2022-06-07 Outpatient [facility] [id number] [place] 09:40:04 [facility] 2022-05-31 Outpatient [facility] [id number] [place] 10:26:41 [facility] 2021-09-22 Outpatient SHAI [facility] [id number] [place] 04:36:07 DANYEL [facility] 2021-09-22 Outpatient [facility] [id number] [place] 04:36:07 [facility] 2021-09-14 Outpatient [place], Na STLMLC STLMLC [id number] 2 Common 14:33:07 [facility] 2021-09-14 Out[place], Na STLMLC STLMLC [id number] 2 Common 14:32:31 [facility] 2021-09-14 Outpatient [place], Na STLMLC STLMLC [id number] 2 Common 14:04:20 [facility] 2021-09-14 Outpatient [place], Na STLMLC STLMLC [id number] 2 Common 12:18:31 [id number] [facility] 2021-09-14 Outpatient [place], Na STLMLC STLMLC [id number] 2 Common 11:52:20 [id number] [facility] 2021-09-14 Outpatient [place], Na [facility] STL[facility] [id number] 2 Common 11:49:03 [id number] [facility] 2021-09-14 Outpatient [place], Na STLMLC STLMLC [id number] 2 Common 11:43:59 [id number] [facility] 2021-09-14 Outpatient [place], Na [facility]ML[facility] STLML[facility] [id number] 2 Common 11:42:41 [id number] [facility] 2021-09-14 Outpatient [place], Na [facility] STL[facility] [id number] 2 Common 11:40:41 [id number] [facility] 2021-09-14 Outpatient [place], Na [facility] STLML[facility] [id number] 2 Common 11:24:10 [id number] [facility] 2021-09-14 Outpatient [place], Na [facility]ML[facility] STLMLC [id number] 2 Common 11:23:04 [id number] [facility] 2021-09-14 Outpatient [place], Na [facility] STLMLC [id number] 2 Common 11:06:52 [id number] [facility] 2021-09-14 Outpatient [place], Na STLMLC STLMLC [id number] 2 Common 11:06:22 [id number] [facility] 2021-09-09 Outpatient DANNY OSMAN [facility] [id number] [place] 09:41:19 Health 2021-08-22 Outpatient [facility] [id number] [place] 10:17:26 [facility] 2021-06-28 Outpatient SHAI, [facility] [id number] [place] 13:03:26 DANYEL [facility] 2021-06-28 Outpatient [facility] [id number] [place] 10:57:38 Health 2021-04-27 Outpatient [facility] [id number] [place] 10:07:37 [facility] 2022-11-21 2022-11-21 Outpatient JULIO, [facility] [id number] [place] 12:45:00 12:45:00 RIGO [facility] 2022-09-22 2022-10-21 Outpatient JANIA [facility] [id number] [facility] 13:36:00 23:59:00 MIGUELANGEL 2022-09-22 2022-10-21 Outpatient HELIO LOPEZ [facility] [id number] [facility] 10:33:00 23:59:00 2022-09-26 2022-09-26 Office SAMANTHA KIM 6400 [id number] [place] 12:45:00 12:45:00 Visit RIGO CLEMONS [id number] Health [id number] 2022-09-25 2022-09-25 Office Marco SAMANTHA 6400 [id number] [place] 10:30:00 10:39:44 Visit Donovan CLEMONS [id number] Health [id number] 2022-08-22 2022-09-20 Outpatient HELIO LOPEZ [facility] [id number] [facility] 10:09:00 23:59:00 2022-09-18 2022-09-18 Outpatient [facility] [id number] [place] 09:45:00 09:45:00 Health 2022-09-18 2022-09-18 Outpatient [facility] [id number] [place] 08:15:00 08:15:00 [facility] 2022-08-29 2022-08-29 Office Rigo Kim SAMANTHA [id number] [place] 12:45:00 13:05:00 Visit 1, [facility] Oph Minor Surg Room DEONTE PEDERSON 3 [id number] Health [id number] 2022-08-28 2022-08-28 Outpatient MARCO [facility] [id number] [place] 10:15:00 10:15:00 [facility] 2022-08-22 2022-08-22 (TEL) STLMLC STLMLC [id number] Co mmon 00:00:00 00:00:00 [facility] 2022-08-01 2022-08-19 Outpatient HELIO [facility]OPEZHH [facility] [id number] [facility] 10:14:00 18:00:00 2022-07-11 2022-08-09 Outpatient JANIA [facility] [id number] [facility] 13:43:00 23:59:00 MIGUELANGEL 2022-08-01 2022-08-01 Outpatient JULIO [facility] [id number] [place] 09:45:00 09:45:00 [facility] 2022-08-01 2022-08-01 Outpatient [facility] [id number] [place] 08:05:00 08:05:00 [facility] 2022-08-01 2022-08-01 Procedure Rigo Kim UTP 6400 [id number] DC 07:45:00 08:00:00 Visit 1, [facility] Oph Minor Surg Room [place] [id number] [facility] [id number] 2022-07-27 2022-07-27 Emergency E SUNIL, [facility] [id number] [facility] 16:16:00 18:02:00 MAGNO 2022-06-20 2022-07-19 Outpatient HELIO LOPEZ [facility] [id number] [facility] 10:25:00 23:59:00 2022-07-18 2022-07-18 Outpatient EMMA [facility] [id number] [facility] 10:40:00 14:30:00 [facility] 2022-07-18 2022-07-18 [facility] [facility] [id number] [place] 11:00:00 11:00:00 [facility] 2022-06-16 2022-07-15 Outpatient OCTAVIANO WISDOM [facility] MARIELLA [id number] [facility] 10:11:00 23:59:00 2022-07-11 2022-07-11 Outpatient HELIO LOPEZ [facility] [id number] [place] 09:00:00 09:00:00 [facility] 2022-07-04 2022-07-04 Outpatient JULIO [facility] [id number] [place] 14:30:00 14:30:00 [facility] 2022-07-04 2022-07-04 Outpatient JULIO [facility] [id number] [place] 12:45:00 13:33:53 [facility] 2022-07-04 2022-07-04 Outpatient HELIO LOPEZ [facility] [id number] [place] 10:30:00 10:30:00 [facility] 2022-06-28 2022-06-28 Outpatient [facility] [id number] [place] 08:30:00 08:30:00 Health 2022-06-28 2022-06-28 Outpatient [facility] [id number] [place] 08:30:00 08:30:00 Health 2022-06-28 2022-06-28 Outpatient JULIO [facility] [id number] [place] 08:30:00 08:30:00 [facility] 2022-06-27 2022-06-27 (TEL) [facility] [id number] Co mmon 00:00:00 00:00:00 [facility] 2022-06-20 2022-06-20 Outpatient LOPEZHELIO [facility] [id number] [place] 10:20:00 10:20:00 [facility] 2022-06-16 2022-06-16 Outpatient OCTAVIANO WISDOM [facility] [id number] [place] 10:00:00 10:00:00 [facility] 2022-05-09 2022-06-07 Outpatient HELIO LOPEZ [facility] [id number] [facility] 09:40:00 23:59:00 2022-05-31 2022-05-31 Procedure SAMANTHA KIM 6400 1.2.840.114 [id number] [place] 10:30:00 13:18:[address] [id number] Health [id number] 2022-05-31 2022-05-31 Procedure Julio [facility] 6400 1.2.840.114 [id number] [place] 10:15:00 10:30:[address] [id number] Health [id number] 2022-05-31 2022-05-31 Outpatient JULIO [facility] [id number] [place] 09:30:00 09:30:00 RIGO [facility] 2022-05-30 2022-05-30 Outpatient HELIO LOPEZ [facility] [id number] [place] 10:40:00 10:40:00 [facility] 2022-05-17 2022-05-17 Outpatient [facility] [id number] [place] 10:05:00 13:48:48 [facility] 2022-05-17 2022-05-17 Office SAMANTHA KIM 6400 1.2.840.114 [id number] [place] 09:30:00 09:30:00 Visit RIGO CLEMONS [id number] [facility] [id number] 2022-05-09 2022-05-09 Outpatient HELIO LOPEZ [facility] [id number] [place] 09:20:00 09:20:00 [facility] 2022-05-09 2022-05-09 (TEL) [facility] [id number] Co mmon 00:00:00 00:00:00 [facility] 2022-03-28 2022-04-26 Outpatient HELIO LOPEZ [facility] [id number] [facility] 09:15:00 23:59:00 2022-03-07 2022-04-05 Outpatient [facility] [id number] [facility] 15:20:00 23:59:00 [place] 2022-03-28 2022-03-28 Outpatient HELIO LOPEZ [facility] [id number] [place] 09:00:00 09:00:00 [facility] 2022-02-14 2022-03-15 Outpatient [facility] [id number] [facility] 11:28:00 23:59:00 2022-03-07 2022-03-07 Outpatient HELIO LOPEZ [facility] [id number] [place] 11:00:00 11:00:00 [facility] 2022-01-25 2022-02-23 Outpatient [facility] [id number] [facility] 12:51:00 23:59:00 [place] 2022-02-16 2022-02-16 (TEL) [facility] [id number] Co mmon 00:00:00 00:00:00 [facility] 2022-02-14 2022-02-14 Outpatient HELIO LOPEZ [facility] [id number] [place] 11:00:00 11:00:00 Health 2022-01-03 2022-02-01 Outpatient GISELL, [facility] [id number] [facility] 13:48:00 23:59:00 PUSHAN 2022-02-01 2022-02-01 Outpatient LOPEZHELIO [facility] [id number] [place] 13:20:00 13:20:00 Health 2021-12-26 2022-01-24 Outpatient JANIA, [facility] [id number] [facility] 12:06:00 23:59:00 MIGUELANGEL 2022-01-24 2022-01-24 Outpatient JESSICA HELIO [facility] [id number] [place] 09:40:00 09:40:00 Health 2021-12-21 2022-01-19 Outpatient DUSTINRENZOMarleny, [facility] [id number] [facility] 12:39:00 23:59:00 FRANCES 2022-01-18 2022-01-18 Outpatient EMMA, [facility] [id number] [facility] 10:19:00 23:59:00 [facility] 2022-01-18 2022-01-18 Outpatient EMMA [facility] [id number] [place] 11:30:00 11:30:00 [facility] 2022-01-13 2022-01-13 Office Kim, [facility] 6400 [id number] [id number] [place] 09:45:00 10:58:42 Visit Rigo LAMN [id number] [facility] [id number] 2022-01-03 2022-01-03 Outpatient JESSICA HELIO [facility] [id number] [place] 13:40:00 13:40:00 Health 2021-12-26 2021-12-26 Outpatient GISELL, [facility] [id number] [facility] 07:30:00 11:00:00 PUSHAN 2021-11-22 2021-12-21 Outpatient HELIO LOPEZ [facility] [id number] [facility] 14:28:00 23:59:00 2021-12-20 2021-12-20 Outpatient LOPEZHELIO [facility] [id number] [place] 14:00:00 14:00:00 Health 2021-12-20 2021-12-20 OFFICE STLMLC [facility] [id number] Co mmon 00:00:00 00:00:00 VISIT Spirit ESTAB PT - [facility] LEVEL 4 [facility] 2021-12-19 2021-12-19 Telemedici SAMANTHA Maldonado 6410 1.2.840.114 [id number] [place] 10:00:00 11:44:[address] [id number] Health [id number] 2021-11-07 2021-12-06 Outpatient ABIGAIL [facility] [id number] [facility] 07:07:00 23:59:00 FRANCES 2021-11-22 2021-11-22 Office Helio Lopez EXT MSRDP 1.2.840.114 [id number] [place] 14:40:00 15:20:00 Visit H LOCATION [id number] H ealth [id number] 2021-11-15 2021-11-15 Outpatient OCTAVIANO WISDOM [facility] [id number] [facility] 11:16:00 23:59:00 2021-11-15 2021-11-15 Outpatient OCTAVIANO WISDOM [facility] [id number] [place] 11:00:00 11:00:00 Health 2021-11-14 2021-11-14 Office Danny Osman UTP 6410 1.2.840.114 [id number] [place] 11:00:00 11:30:[address] [id number] Health [id number] 2021-11-09 2021-11-09 Emergency E VU, [facility] [id number] [facility] 11:35:00 12:50:00 JEREMY 2021-10-11 2021-10-11 Outpatient PHYSICIAN, [facility] MED [id number] [facility] 06:40:00 16:04:00 NON 2021-10-04 2021-10-04 Outpatient ACE [facility] [id number] [facility] 08:48:00 18:00:00 WEN 2021-09-19 2021-09-19 (INJ) STLMLC ST[facility] [id number] Co mmon 00:00:00 00:00:00 Injection Spir it - [facility] 2021-09-07 2021-09-07 Office 1, Utp UTP 6410 1.2.840.114 [id number] [place] 11:00:00 11:55:[address] [id number] Health nal Consult [id number] 2021-09-07 2021-09-07 Office 1, Utp UTP 6410 1.2.840.114 [id number] [place] 11:00:00 11:55:[address] [id number] Health nal Consult [id number] 2021-09-07 2021-09-07 Telephone Olesya Corona UTP 6410 1.2.840 .114 [id number] [place] 00:00:00 00:00:[address] [id number] Health [id number] 2021-08-29 2021-08-29 OFFICE STLMLC STL[facility] [id number] Co mmon 00:00:00 00:00:00 VISIT Spirit ESTAB PT - [facility]I LEVEL 4 [facility] 2021-08-26 2021-08-26 Telephone Olesya Corona UTP 6410 1.2.840 .114 [id number] [place] 00:00:00 00:00:[address] [id number] Health [id number] 2021-08-16 2021-08-16 Outpatient OCTAVIANO WISDOM [facility] [id number] [facility] 13:33:00 23:59:00 2021-08-01 2021-08-01 Telephone Kojo [facility] [id number] 00:00[facility]00 00:00:00 [facility] 2021-06-28 2021-06-28 Office SAMANTHA Sharp 6400 1.2.840.114 [id number] [place] 10:07:41 13:02:10 Visit Danyel PEDERSON [id number] Health [id number] 2021-06-10 2021-06-10 (TEL) STLMLC ST[facility] [id number] Co mmon 00:00:00 00:00:00 [facility] 2021-04-27 2021-04-27 Office SAMANTHA SHARP 6400 1.2.840.114 [id number] [place] 09:54:20 10:09:20 Visit DANYEL PEDERSON [id number] Health [id number] 2021-04-22 2021-04-22 Outpatient STLMLC [facility] [id number] Common 00:00:00 00:00:00 [facility] 2021-04-14 2021-04-14 Outpatient STLMLC [facility] [id number] Common 00:00:00 00:00:00 [facility] 2020-09-05 2020-09-05 Outpatient STLMLC [facility] [id number] Common 00:00:00 00:00:00 [facility] 2020-08-27 2020-08-27 Outpatient STLMLC [facility] [id number] Common 00:00:00 00:00:00 [facility] 2020-08-27 2020-08-27 Outpatient STLMLC ST[facility] [id number] Common 00:00:00 00:00:00 [facility] 2020-05-27 2020-05-27 Outpatient STLMLC [facility] [id number] Common 00:00:00 00:00:00 [facility] 2020-05-18 2020-05-18 Outpatient STLMLC ST[facility] [id number] Common 00:00:00 00:00:00 [facility] 2020-05-13 2020-05-13 Outpatient STLMLC ST[facility] [id number] Common 00:00:00 00:00:00 [facility] 2020-04-27 2020-04-27 [facility] [id number] Common 11:40:00 11:40:[address] [facility] 2020-04-06 2020-04-06 Outpatient [facility] [id number] Common 11:55:00 11:55:[address] [facility] 2020-01-27 2020-01-27 Outpatient [facility] [id number] Common 08:17:00 08:17:[address] [facility] 2020-01-23 2020-01-23 Outpatient [facility] [id number] Common 11:00:00 11:00:[address] [facility] 2020-01-16 2020-01-16 Outpatient [facility] [id number] Common 11:06:00 11:06:[address] [facility] 2019-12-16 2019-12-16 Out[facility] [id number] Common 10:34:00 10:34:[address] [facility] 2019-12-12 2019-12-12 Out[facility] [id number] Common 13:30:00 13:30:[address] [facility] 2019-12-10 2019-12-10 Outpatient [facility] [id number] Common 16:51:00 16:51:[address] [facility] 2019-12-10 2019-12-10 Out[facility] [id number] Common 15:24:00 15:24:00 t Specialty/U Sp vj Specialty rology - [facility] 2019-09-30 2019-09-30 [facility] [id number] Common 08:20:00 08:20:[address] [facility] 2019-08-22 2019-08-22 [facility] [id number] Common 16:14:00 16:14:[address] [facility] 2019-08-22 2019-08-22 Out[facility] [id number] Common 15:35:00 15:35:[address] [facility] 2019-08-06 2019-08-06 Out[facility] [id number] Common 16:50:00 16:50:[address] [facility] 2019-08-06 2019-08-06 Outpatient [facility] [id number] Common 15:25:00 15:25:[address] [facility] 2019-06-30 2019-06-30 Outpatient [facility] [id number] Common 10:00:00 10:00:[address] [facility] 2019-06-20 2019-06-20 Outpatient [facility] [id number] Common 17:04:00 17:04:[address] [facility] 2019-06-18 2019-06-18 Outpatient [facility] [id number] Common 08:54:00 08:54:[address] [facility] 2019-04-28 2019-04-28 Outpatient [facility] [id number] Common 13:40:00 13:40:[address] [facility] 2019-03-25 2019-03-25 Outpatient [facility] [id number] Common 11:40:00 11:40:[address] [facility] 2019-03-03 2019-03-03 Outpatient [facility] [id number] Common 14:00:00 14:00:00 t Urgent Urgent Care [facility] 2019-03-03 2019-03-03 Outpatient [facility] [id number] Common 12:59:00 12:59:[address] [facility] 2018-10-30 2018-10-30 Out[facility] [id number] Common 09:00:00 09:00:[address] [facility] 2018-10-07 2018-10-07 Outpatient [facility] [id number] Common 10:31:00 10:31:[address] [facility] 2018-08-01 2018-08-01 Outpatient [facility] [id number] Common 09:30:00 09:30:[address] [facility] 2018-04-24 2018-04-24 Outpatient [facility] [id number] Common 09:30:00 09:30:[address] [facility] 2018-01-25 2018-01-25 Outpatient [facility] [id number] Common 10:45:00 10:45:[address] [facility] 2018-01-22 2018-01-22 Outpatient [facility] [id number] Common 09:00:00 09:00:[address] [facility] Results This patient has no known results.
--- NOTE | 2022-10-22 09:51 | RAD REPORT ---
EXAM DESCRIPTION: CT - Ct Stroke Brain Wo Cont - 10/22/2022 9:45 am CLINICAL HISTORY: Confusion/alteration of awareness COMPARISON: 2018 TECHNIQUE: Computed axial tomography of the head was obtained. All CT scans are performed using dose optimization technique as appropriate and may include automated exposure control or mA/KV adjustment according to patient size. FINDINGS: An intracranial bleed is not seen . The ventricles are normal in caliber. No extra-axial fluid collection is noted. No significant hypodensity within the brain Fluid within the sinuses/ mastoids is not seen. IMPRESSION: No acute intracranial abnormality is seen. If patient's symptoms persist MRI of the bra in would be recommended Dr Rowley of the emergency room was notified at 9:39 a.m. October 22, 2022
[2022-10-22 09:57] LABS: Absolute Lymphocytes (CBC) 0.5 K/uL (0.7-4.9); Hematocrit 42.4 % (36.0-45.0); Lymphocytes % 6.8 % (15.3-44.8); MCV 88.7 fL (80-100); MPV 8.3 fL (7.6-11.3); RBC Red Blood Cell Count 4.78 M/uL (3.86-4.86)
[2022-10-22 10:02] LABS: Protime INR 0.89
[2022-10-22 10:18] LABS: Albumin 2.2 g/dL (3.4-5.0); Bilirubin Direct 0.3 mg/dL (0-0.2); Bilirubin Total 0.8 mg/dL (0.2-1.0); Magnesium 2.5 mg/dL (1.6-2.4); Potassium 3.5 mmol/L (3.5-5.1); Protein, Total 6.5 g/dL (6.4-8.2)
[2022-10-22 10:35] LABS: Albumin 2.2 g/dL (3.4-5.0); Bilirubin Total 0.9 mg/dL (0.2-1.0); Potassium 3.5 mmol/L (3.5-5.1); Protein, Total 6.5 g/dL (6.4-8.2)
[2022-10-22 10:49] LABS: Urine Blood Negative (Negative); Urine Glucose Trace (Negative); Urine Protein 3+ (Negative); Urine Specific Gravity 1.025 (1.005-1.030)
[2022-10-22] MEDS ORDERED: CEFTRIAXONE 1000 MG/VIAL ONE (10:57)
[2022-10-22 11:02] LABS: Blood Morphology Comment NOT SEEN (NOT SEEN); Platelet Estimate DECR; White Blood Cell Scan OK (OK)
--- NOTE | 2022-10-22 11:23 | RAD REPORT ---
EXAM DESCRIPTION: Danyel Single View10/22/2022 10:08 am CLINICAL HISTORY: Alteration of consciousness/low platelets COMPARISON: 2012 FINDINGS: The lungs appear clear of acute infiltrate. The heart is normal size IMPRESSION: No acute abnormalities displayed
[2022-10-22 12:07] LABS: SARS-CoV-2 Antigen Rapid Res Negative (Negative)
[2022-10-22] MEDS ORDERED: LACTULOSE 20 GM/30 ML UCUP ONE ×2 (12:09→22:13)
--- NOTE | 2022-10-22 13:17 | P.HP ---
Certification for Inpatient Patient admitted to: Inpatient With expected LOS: >2 Midnights Practitioner: I am a practitioner with admitting privileges, knowledge of patient current condition, hospital course, and medical plan of care. Services: Services provided to patient in accordance with Admission requirements found in Title 42 Section 412.3 of the Code of Federal Regulations Patient History Date of Service: 10/22/22 Primary Care Provider: Tyler Reason for admission: hepatic encephalthy History of Present Illness: Patient is a pleasant woman who is confused. Her daughter Africa [phone] provide the blanks in the story. The patient has a history of hepatocellular cancer due to Hepatitis C. She had treatment with Dr. Richards. The patient is being treated for her cancer at [facility]. The patient also has hypothyroidism, dm2. Did have chemoradiation. The radiation caused a cough. She has been on prednisone 10mg for this daily for the past several months. The patient has been fatigued and confused for the past few days. She was started on Lactulose 15ml po bid. However she was becoming more lethargic and non communicative. The patient was also complainting about weakness. The daughter was concerned and called EMS. She is very weak in the ER. Requiring nursing to roll her. The patient is awake and able to communicate well. Otherwise no complaints Allergies No Known Allergies Allergy (Unverified 10/22/22 11:20) Review of Systems 10-point ROS is otherwise unremarkable General: Weakness Neurological: Confusion Physical Examination - Physical Exam General: Alert, In no apparent distress HEENT: Atraumatic, PERRLA, Mucous membr. moist/pink, EOMI, Sclerae nonicteric Neck: Supple, 2+ carotid pulse no bruit, No LAD, Without JVD or thyroid abnormality Respiratory: Clear to auscultation bilaterally, Normal air movement Cardiovascular: Regular rate/rhythm, Normal S1 S2 Gastrointestinal: Normal bowel sounds, No tenderness Musculoskeletal: No tenderness Integumentary: No rashes Neurological: Normal gait, Normal speech, Normal strength at 5/5 x4 extr, Normal tone, Normal affect Lymphatics: No axilla or inguinal lymphadenopathy - Studies Laboratory Data (last 24 hrs) 10/22/22 09:40: Sodium 141, Potassium 3.5, BUN 50 H, Creatinine 1.24 H, Glucose 184 H, Total Bilirubin 0.9, AST 72 H, ALT 96 H, Alkaline Phosphatase 306 H 10/22/22 09:40: PT 9.8, INR 0.89, APTT 23.8 L 10/22/22 09:40: WBC 8.00, Hgb 13.8, Hct 42.4, Plt Count 62 L 10/22/22 09:40: Sodium 141, Potassium 3.5, BUN 50 H, Creatinine 1.23 H, Glucose 183 H, Magnesium 2.5 H, Total Bilirubin 0.8, AST 72 H, ALT 95 H, Alkaline Phosphatase 305 H Assessment and Plan - Problems (Diagnosis) (1) Hepatic encephalopathy Current Visit: Yes Status: Acute Plan: start the patient on lactulose 30ml po bid. Will check lactulose daily. (2) Hepatocellular carcinoma Current Visit: Yes Status: Chronic Plan: She was on chemotherapy. Prednisone for the radiation induced cough. Will hold the prednisone due to the sugar effects. However is she starts coughing again. will restart it at 5 rather than 10mg. See if a lower dosage would work. We can increase it to the regular dosage if needed. (3) Diabetes Current Visit: Yes Status: Chronic Plan: continue januvia. Start her on some iv fluids and a sliding scale. Will adjust her medications as needed. Qualifiers: Diabetes mellitus type: type 2 Diabetes mellitus detention insulin use: without terminal block assembler use Diabetes mellitus complication status: without complication Qualified Code(s): E11.9 - Type 2 diabetes mellitus without complications (4) Hypothyroidism, unspecified Current Visit: Yes Status: Chronic Plan: restart her home dosage of levothyroxine Qualifiers: Hypothyroidism type: unspecified Qualified Code(s): E03.9 - Hypothyroidism, unspecified (5) Unspecified protein-calorie malnutrition Current Visit: Yes Status: Acute Plan: consult PT to ambulate the patient before sending her home Qualifiers: Protein-calorie malnutrition severity: moderate Qualified Code(s): E44.0 - Moderate protein-calorie malnutrition Discharge Plan: Home Plan to discharge in: 48 Hours - Advance Directives Does patient have a Living Will: No Does patient have a Durable POA for Healthcare: No - Code Status/Comfort Care Code Status Assessed: Yes Code Status: Full Code Critical Care: No Time Spent Managing Pts Care (In Minutes): 60
[2022-10-22] MEDS ORDERED: D50W 25 GM/50 ML SYRINGE IV PRN (13:33)
[2022-10-22] MEDS ORDERED: GLUCAGON 1 MG/VIAL IM PRN (13:33)
[2022-10-22] MEDS ORDERED: D10W 125 ML IV PRN (13:55)
[2022-10-22] MEDS ORDERED: carvediloL 6.25 MG TAB PO ONE (14:00)
--- NOTE | 2022-10-22 15:52 | ER ---
Nurse's Notes [facility] Sivan Name: Angi Sterling Age: 62 yrs Sex: Female : 1960 Arrival Date: 10/22/2022 Time: 09:31 Bed 6 Private MD: Diagnosis: Hypoglycemia, unspecified;Hypothermia, initial encounter;Altered mental status, unspecified Presentation: 10/22 09:36 Chief complaint: EMS states: toned out for AMS, last known well last night at 11 pm, iw FSBS was initially 50s , gave 250 D10 up to 270, pt still altered after D10, hx of cancer, takes lactulose , recently stopped chemo due to low platelets. Coronavirus screen: At this time, the client does not indicate any symptoms associated with coronavirus-19. Ebola Screen: Patient negative for fever greater than or equal to 101.5 degrees Fahrenheit, and additional compatible Ebola Virus Disease symptoms Patient denies exposure to infectious person. Patient denies travel to an Ebola-affected area in the 21 days before illness onset. No symptoms or risks identified at this time. Onset of symptoms was October 22, 2022. 09:36 Method Of Arrival: EMS: [facility] iw 09:36 Acuity: ALISHA 2 iw 09:40 Initial Sepsis Screen: Does the patient meet any 2 criteria? No. Patient's initial hb sepsis screen is negative. Does the patient have a suspected source of infection? No. Patient's initial sepsis screen is negative. Risk Assessment: Do you want to hurt yourself or someone else? Unable to obtain. Historical: - Allergies: 09:38 No Known Allergies; iw - Home Meds: 09:39 lactulose 10 gram/15 mL Oral soln 15 mL once daily [Active]; levothyroxine 100 mcg cap iw 1 cap once daily [Active]; carvedilol 6.25 mg oral tab 1 tab 2 times per day [Active]; omeprazole 40 mg Oral cpDR 1 cap once daily [Active]; amlodipine 2.5 mg tab 1 tab once daily [Active]; Jardiance 25 mg oral tab 1 tab once daily [Active]; spironolactone 100 mg Oral tab 1 tab once daily [Active]; - PMHx: 09:38 Diabetes mellitus; CVA; iw 11:18 Cirrhosis of liver; iw 11:53 liver cancer; iw - Immunization history:: Adult Immunizations unknown. - Social history:: Smoking status: unknown. Screenin:18 [facility] ED Fall Risk Assessment (Adult) Confusion or Disorientation Yes (5 pts) iw Intoxicated or Sedated Yes (3 pts) Impaired Gait Yes (1 pt) Mobility Assist Device Used No (0 pt) Altered Elimination Yes (1 pt). Abuse screen: Denies threats or abuse. Nutritional screening: No deficits noted. Tuberculosis screening: No symptoms or risk factors identified. Assessment: 09:42 General: Appears uncomfortable, ill, Behavior is restless. iw 10:57 Reassessment: No changes from previously documented assessment. pt able to state first iw name only, temperature zuñiga in place, Alexia Hugger remains in place. 11:46 Reassessment: Point of Contact, daughter: [place] . ss 12:16 Reassessment: pt able to drink lactulose via syringe, no coughing or dribbling noted. iw 12:36 Reassessment: Dr. Brady at bedside to assess pt. iw 12:57 Reassessment: pt sitting up in bed, requesting crackers, given. Pt given cell phone iw ,speaking to daughter on phone, states she does not remember what happened this morning. 15:18 Reassessment: Patient appears in no apparent distress at this time. Patient and/or hb family updated on plan of care and expected duration. Pain level reassessed. 17:33 Reassessment: Patient appears in no apparent distress at this time. No changes from hb previously documented assessment. Vital Signs: 09:39 BP 165 / 86; Pulse 73; Resp 18; Temp 89.9(R); Pulse Ox 100% on R/A; Weight 50 kg (M); iw 10:24 BP 140 / 82; Pulse 70; Resp 17; Pulse Ox 100% on R/A; hb 10:48 BP 123 / 68; Pulse 71; Resp 15; Pulse Ox 99% ; hb 11:47 BP 93 / 54; Pulse 70; Resp 15; Temp 91.9(C); Pulse Ox 99% ; hb 12:16 Temp 92.7(C); iw 12:58 BP 133 / 70; Pulse 80; Resp 16; Temp 94.0(C); Pulse Ox 100% on R/A; iw 14:19 BP 113 / 64; Pulse 77; Resp 14; Temp 95.2(C); Pulse Ox 99% ; hb 15:17 BP 123 / 64; Pulse 83; Resp 20; Pulse Ox 99% on R/A; hb 16:23 BP 119 / 66; Pulse 88; Resp 17; Pulse Ox 98% ; hb 17:33 BP 132 / 63; Pulse 84; Resp 17; Pulse Ox 100% on R/A; hb ED Course: 09:31 Patient arrived in ED. eb 09:32 Oracio Rowley MD is Attending Physician. kdr 09:36 Eufemia Norris, RN is Primary Nurse. iw 09:38 Triage completed. iw 09:38 Arm band placed on. iw 09:42 Inserted saline lock: 22 gauge in right antecubital area, using aseptic technique. iw Blood collected. IV inserted by Susana ROSE. 10:00 Zuñiga cath inserted, using sterile technique, 16 Fr., by ms, balloon inflated, Patient iw tolerated well. 10:25 Patient has correct armband on for positive identification. hb 15:50 Juancarlos Scott MD is Hospitalizing Provider. kdr Administered Medications: 10:58 Drug: Rocephin - (cefTRIAXone) 1 grams Route: IVPB; Infused Over: 30 mins; Site: right iw antecubital; 12:15 Drug: Lactulose 30 grams Volume: 45 ml; Route: PO; iw Medication: 10:19 VIS not applicable for this client. iw Outcome: 15:51 Decision to Hospitalize by Provider. kdr 23:49 Patient left the ED. jb4 Signatures: Oracio Rowley MD MD [facility] Eufemia Norris RN RN Lisandra Echols RN RN Susana Hinkle RN RN Donovan Humphreis RN RN jbHailey Crump Corrections: (The following items were deleted from the chart) 09:43 09:39 BP 165 / 86; iw iw 09:54 09:39 BP 165 / 86; Pulse 73bpm; Resp 18bpm; Pulse Ox 100% RA; iw iw 09:55 09:39 BP 165 / 86; Pulse 73bpm; Resp 18bpm; Pulse Ox 100% RA; Temp 89.9F Rectal; iw iw
--- NOTE | 2022-10-22 15:52 | EDPHYS ---
Physician Documentation [facility] Sivan Name: Angi Sterling Age: 62 yrs Sex: Female : 1960 Arrival Date: 10/22/2022 Time: 09:31 Bed 6 Private MD: ED Physician Oracio Rowley HPI: 10/22 18:36 This 62 yrs old Female presents to ER via EMS with complaints of Altered kdr Mental Status. 18:36 The patient presents with confusion, decreased mental status, decreased responsiveness, kdr disorientation. Onset: The symptoms/episode began/occurred Last known well was last night. Possible causes: CVA or TIA, head injury, low blood sugar, sepsis. Current symptoms: In the emergency department the patient's symptoms are unchanged from the initial presentation. Patient's baseline: Neuro: alert and fully oriented, Motor: no deficits, Speech: normal for age. It is unknown whether or not the patient has had similar symptoms in the past. It is unknown whether or not the patient has recently seen a physician. Historical: - Allergies: 09:38 No Known Allergies; iw - Home Meds: 09:39 lactulose 10 gram/15 mL Oral soln 15 mL once daily [Active]; levothyroxine 100 mcg cap iw 1 cap once daily [Active]; carvedilol 6.25 mg oral tab 1 tab 2 times per day [Active]; omeprazole 40 mg Oral cpDR 1 cap once daily [Active]; amlodipine 2.5 mg tab 1 tab once daily [Active]; Jardiance 25 mg oral tab 1 tab once daily [Active]; spironolactone 100 mg Oral tab 1 tab once daily [Active]; - PMHx: 09:38 Diabetes mellitus; CVA; iw 11:18 Cirrhosis of liver; iw 11:53 liver cancer; iw - Immunization history:: Adult Immunizations unknown. - Social history:: Smoking status: unknown. ROS: 18:34 Constitutional: Negative for fever, chills, and weight loss, Eyes: Negative for injury, kdr pain, redness, and discharge, ENT: Negative for injury, pain, and discharge, Neck: Negative for injury, pain, and swelling, Cardiovascular: Negative for chest pain, palpitations, and edema, Respiratory: Negative for shortness of breath, cough, wheezing, and pleuritic chest pain. 18:34 Unable to obtain ROS due to altered mental status. Exam: 18:34 Constitutional: This is a well developed, well nourished patient who is awake, alert, kdr and in no acute distress. Head/Face: Normocephalic, atraumatic. Eyes: Pupils equal round and reactive to light, extra-ocular motions intact. Lids and lashes normal. Conjunctiva and sclera are non-icteric and not injected. Cornea within normal limits. Periorbital areas with no swelling, redness, or edema. Neck: Trachea midline, no thyromegaly or masses palpated, and no cervical lymphadenopathy. Supple, full range of motion without nuchal rigidity, or vertebral point tenderness. No Meningismus. Chest/axilla: Normal chest wall appearance and motion. Nontender with no deformity. No lesions are appreciated. Cardiovascular: Regular rate and rhythm with a normal S1 and S2. No gallops, murmurs, or rubs. Normal PMI, no JVD. No pulse deficits. Respiratory: Lungs have equal breath sounds bilaterally, clear to auscultation and percussion. No rales, rhonchi or wheezes noted. No increased work of breathing, no retractions or nasal flaring. Abdomen/GI: Soft, non-tender, with normal bowel sounds. No distension or tympany. No guarding or rebound. No evidence of tenderness throughout. Back: No spinal tenderness. No costovertebral tenderness. Full range of motion. Skin: Warm, dry with normal turgor. Normal color with no rashes, no lesions, and no evidence of cellulitis. MS/ Extremity: Pulses equal, no cyanosis. Neurovascular intact. Full, normal range of motion. Neuro: Awake and alert, GCS 15, oriented to person, place, time, and situation. Cranial nerves II-XII grossly intact. Motor strength 5/5 in all extremities. Sensory grossly intact. Cerebellar exam normal. Normal gait. Psych: Awake, alert, with orientation to person, place and time. Behavior, mood, and affect are within normal limits. 18:34 ECG was reviewed by the Attending Physician. Vital Signs: 09:39 BP 165 / 86; Pulse 73; Resp 18; Temp 89.9(R); Pulse Ox 100% on R/A; Weight 50 kg (M); iw 10:24 BP 140 / 82; Pulse 70; Resp 17; Pulse Ox 100% on R/A; hb 10:48 BP 123 / 68; Pulse 71; Resp 15; Pulse Ox 99% ; hb 11:47 BP 93 / 54; Pulse 70; Resp 15; Temp 91.9(C); Pulse Ox 99% ; hb 12:16 Temp 92.7(C); iw 12:58 BP 133 / 70; Pulse 80; Resp 16; Temp 94.0(C); Pulse Ox 100% on R/A; iw 14:19 BP 113 / 64; Pulse 77; Resp 14; Temp 95.2(C); Pulse Ox 99% ; hb 15:17 BP 123 / 64; Pulse 83; Resp 20; Pulse Ox 99% on R/A; hb 16:23 BP 119 / 66; Pulse 88; Resp 17; Pulse Ox 98% ; hb 17:33 BP 132 / 63; Pulse 84; Resp 17; Pulse Ox 100% on R/A; hb MDM: 15:51 Patient medically screened. kdr 18:36 Data reviewed: vital signs, nurses notes, lab test result(s), radiologic studies. kdr 10/22 09:38 Order name: CT Stroke Brain w/o Contrast eb 10/22 09:39 Order name: Basic Metabolic Panel eb 10/22 09:39 Order name: CBC with Diff eb 10/22 09:39 Order name: Hepatic Function eb 10/22 09:39 Order name: High Sensitivity Troponin eb 10/22 09:39 Order name: Magnesium eb 10/22 09:39 Order name: Protime (+inr) eb 10/22 09:39 Order name: Ptt, Activated eb 10/22 09:39 Order name: Stroke CXR 1 View eb 10/22 09:39 Order name: EKG; Complete Time: 09:40 eb 10/22 09:39 Order name: Accucheck; Complete Time: 09:42 eb 10/22 09:39 Order name: Cardiac monitoring; Complete Time: 09:42 eb 10/22 09:39 Order name: EKG - Nurse/Tech; Complete Time: 10:19 eb 10/22 09:39 Order name: IV Saline Lock; Complete Time: 09:42 eb 10/22 09:39 Order name: Labs collected and sent; Complete Time: 09:42 eb 10/22 09:39 Order name: NPO; Complete Time: 09:42 eb 10/22 09:39 Order name: O2 Per Protocol; Complete Time: 09:42 eb 10/22 09:39 Order name: O2 Sat Monitoring; Complete Time: 09:42 eb 10/22 09:39 Order name: Stroke Swallow Screen; Complete Time: 10:58 eb 10/22 09:48 Order name: Glucose, Ancillary Testing; Complete Time: 10:33 EDMS 10/22 09:51 Order name: CT; Complete Time: 10:33 EDMS 10/22 09:54 Order name: AMMONIA iw 10/22 09:55 Order name: Blood Culture Adult (2) kdr 10/22 09:55 Order name: CMP kdr 10/22 09:55 Order name: Lactate w/ 2H reflex if indic. kdr 10/22 09:55 Order name: IV Saline Lock - Large Bore; Complete Time: 10:14 kdr 10/22 09:55 Order name: Vital Signs; Complete Time: 10:14 kdr 10/22 09:55 Order name: CPK kdr 10/22 10:03 Order name: Protime (+INR); Complete Time: 10:33 EDMS 10/22 10:03 Order name: PTT, Activated Partial Thromb; Complete Time: 10:33 EDMS 10/22 10:16 Order name: CBC with Automated Diff; Complete Time: 15:51 EDMS 10/22 10:18 Order name: Basic Metabolic Panel; Complete Time: 10:33 EDMS 10/22 10:18 Order name: Liver (Hepatic) Function; Complete Time: 10:33 EDMS 10/22 10:18 Order name: Troponin High Sensitivity; Complete Time: 10:33 EDMS 10/22 10:18 Order name: Magnesium; Complete Time: 10:33 EDMS 10/22 10:33 Order name: Lactate w/ 2H reflex if indic.; Complete Time: 15:51 EDMS 10/22 10:35 Order name: Comprehensive Metabolic Panel; Complete Time: 15:51 EDMS 10/22 10:35 Order name: Creatine Phosphokinase; Complete Time: 15:51 EDMS 10/22 10:49 Order name: Urine Dipstick-Ancillary; Complete Time: 15:51 EDMS 10/22 10:55 Order name: Ammonia; Complete Time: 15:51 EDMS 10/22 11:03 Order name: CBC Smear Scan; Complete Time: 15:51 EDMS 10/22 11:23 Order name: RAD; Complete Time: 15:51 EDMS 10/22 11:36 Order name: SARS RAPID ss 10/22 12:08 Order name: SARS-COV-2 Antigen Rapid; Complete Time: 15:51 EDMS 10/22 13:50 Order name: Lactate Sepsis 2 HR Follow-up; Complete Time: 15:51 EDMS 10/22 15:33 Order name: Ammonia; Complete Time: 15:51 EDMS 10/22 16:41 Order name: Glucose, Ancillary Testing; Complete Time: 21:33 EDMS 10/22 21:43 Order name: Hemoglobin A1c EDMS 10/22 21:43 Order name: Glucose, Ancillary Testing EDMS EC:34 Rate is 74 beats/min. Rhythm is regular, Sinus Rhythm with No ectopy. IN interval is kdr normal. QRS interval is normal. QT interval is normal. Clinical impression: NSR w/ Non-specific ST/T Changes. Administered Medications: 10:58 Drug: Rocephin - (cefTRIAXone) 1 grams Route: IVPB; Infused Over: 30 mins; Site: right iw antecubital; 12:15 Drug: Lactulose 30 grams Volume: 45 ml; Route: PO; iw Disposition Summary: 10/22/22 15:51 Hospitalization Ordered Hospitalization Status: Inpatient Admission kdr Provider: Juancarlos Scott Condition: Fair kdr Problem: new kdr Symptoms: have improved kdr Bed/Room Type: Standard kdr Location: Telemetry/MedSurg (Inpatient)(10/22/22 22:46) cg Room Assignment: [facility](10/22/22 23:22) cg Diagnosis - Hypoglycemia, unspecified kdr - Hypothermia, initial encounter kdr - Altered mental status, unspecified kdr Forms: - Medication Reconciliation Form kdr - SBAR form kdr Signatures: Dispatcher [employer] EDAL Oracio Rowley MD MD kdr Eufemia Norris RN RN Robin Vale FNP-C FNP-Taylor Jordan RN RN cg Susana Hinkle RN RN Hailey Huerta Corrections: (The following items were deleted from the chart) 19:53 15:51 Telemetry/MedSurg (Inpatient) kdr cg 19:53 15:51 kdr cg 22:46 19:53 [facility] ER HOLD cg cg 22:46 19:53 ERHOLD- cg cg 23:22 22:46 cg cg
[2022-10-22] MEDS ORDERED: NA CHLORIDE 0.9% 1,000 ML ONE (17:54)
[2022-10-22] MEDS ORDERED: carvediloL 6.25 MG TAB ONE (17:54)
[2022-10-22] MEDS ORDERED: INSULIN -REGULAR HUMAN 50 UNIT/0.5 ML ML ONE ×2 (17:54→22:12)
[2022-10-22] MEDS: NA CHLORIDE 0.9% 1,000 ML IV SCH (18:03)
[2022-10-22] MEDS: INSULIN -REGULAR HUMAN 50 UNIT/0.5 ML ML SQ SCH ×2 (18:04→21:00)
[2022-10-22] MEDS ORDERED: ENOXAPARIN 40 MG/0.4 ML SQ SCH (21:00)
[2022-10-22] MEDS: LACTULOSE 20 GM/30 ML UCUP PO SCH (21:00)
[2022-10-22] MEDS ORDERED: ENOXAPARIN 30 MG/0.3 ML SQ ONE (22:20)
[2022-10-23] MEDS: NA CHLORIDE 0.9% 1,000 ML IV SCH ×3 (03:20→23:20)
[2022-10-23] MEDS: PANTOPRAZOLE 40MG TABLET PO SCH (05:52)
[2022-10-23] MEDS: LEVOTHYROXINE SOD 0.1 MG TAB PO SCH (05:52)
[2022-10-23] MEDS ORDERED: INFLUENZA VACCINE (for 6+ mo) 0.5 ML DOSE IMVAC ONE (08:00)
--- NOTE | 2022-10-23 08:02 | P.PN ---
Subjective Date of Service: 10/23/22 Primary Care Provider: Tyler Chief Complaint: hepatic encephalthy Subjective: Improving ([id number]) Review of Systems 10-point ROS is otherwise unremarkable General: Weakness Physical Examination - Vital Signs Temperature: 99.3 F Blood Pressure: 138/71 Pulse: 108 Respirations: 16 Pulse Ox (%): 98 - Physical Exam General: Alert, In no apparent distress HEENT: Atraumatic, PERRLA, EOMI Neck: Supple, JVD not distended Respiratory: Clear to auscultation bilaterally, Normal air movement Cardiovascular: Regular rate/rhythm, Normal S1 S2 Gastrointestinal: Normal bowel sounds, No tenderness Musculoskeletal: No tenderness Integumentary: No rashes Neurological: Normal speech, Normal tone, Normal affect Lymphatics: No axilla or inguinal lymphadenopathy - Studies Laboratory Data (last 24 hrs) 10/22/22 09:40: Sodium 141, Potassium 3.5, BUN 50 H, Creatinine 1.24 H, Glucose 184 H, Total Bilirubin 0.9, AST 72 H, ALT 96 H, Alkaline Phosphatase 306 H 10/22/22 09:40: PT 9.8, INR 0.89, APTT 23.8 L 10/22/22 09:40: WBC 8.00, Hgb 13.8, Hct 42.4, Plt Count 62 L 10/22/22 09:40: Sodium 141, Potassium 3.5, BUN 50 H, Creatinine 1.23 H, Glucose 183 H, Magnesium 2.5 H, Total Bilirubin 0.8, AST 72 H, ALT 95 H, Alkaline Phosphatase 305 H Assessment And Plan - Current Problems (Diagnosis) (1) Hepatic encephalopathy Current Visit: Yes Status: Acute Plan: start the patient on lactulose 30ml po bid. Will check lactulose daily. ammonia level is trending downward. Will possible discharge tomorrow (2) Hepatocellular carcinoma Current Visit: Yes Status: Chronic Plan: She was on chemotherapy. Prednisone for the radiation induced cough. Will hold the prednisone due to the sugar effects. However is she starts coughing again. will restart it at 5 rather than 10mg. See if a lower dosage would work. We can increase it to the regular dosage if needed. (3) Diabetes Current Visit: Yes Status: Chronic Plan: continue januvia. Start her on some iv fluids and a sliding scale. Will adjust her medications as needed. Qualifiers: Diabetes mellitus type: type 2 Diabetes mellitus snf insulin use: without snf use Diabetes mellitus complication status: without complication Qualified Code(s): E11.9 - Type 2 diabetes mellitus without complications (4) Hypothyroidism, unspecified Current Visit: Yes Status: Chronic Plan: restart her home dosage of levothyroxine Qualifiers: Hypothyroidism type: unspecified Qualified Code(s): E03.9 - Hypothyroidism, unspecified (5) Unspecified protein-calorie malnutrition Current Visit: Yes Status: Acute Plan: consult PT to ambulate the patient before sending her home Qualifiers: Protein-calorie malnutrition severity: moderate Qualified Code(s): E44.0 - Moderate protein-calorie malnutrition Discharge Plan: Home Plan to discharge in: 24 Hours - Code Status/Comfort Care Code Status Assessed: No Critical Care: No Time Spent Managing PTS Care (In Minutes): 20
[2022-10-23] MEDS: INSULIN -REGULAR HUMAN 50 UNIT/0.5 ML ML SQ SCH ×4 (08:23→21:22)
[2022-10-23] MEDS: LACTULOSE 20 GM/30 ML UCUP PO SCH ×2 (08:25→21:28)
[2022-10-23] MEDS: AMLODIPINE 2.5 MG TAB PO SCH (08:25)
[2022-10-23] MEDS: SPIRONOLACTONE 25 MG TABLET PO SCH (08:25)
[2022-10-23] MEDS ORDERED: INSULIN GLARGINE 100 UNIT/ML SQ SCH (09:00)
[2022-10-23 09:43] LABS: Absolute Lymphocytes (CBC) 0.8 K/uL (0.7-4.9); Hematocrit 40.1 % (36.0-45.0); MCV 89.5 fL (80-100); MPV 8.8 fL (7.6-11.3); RBC Red Blood Cell Count 4.48 M/uL (3.86-4.86)
[2022-10-23 10:10] LABS: Albumin 2.1 g/dL (3.4-5.0); Bilirubin Total 0.7 mg/dL (0.2-1.0); Potassium 3.7 mmol/L (3.5-5.1); Protein, Total 6.1 g/dL (6.4-8.2)
[2022-10-23 10:13] LABS: Thyroid Stimulating Hormone 6.83 uIU/mL (0.358-3.740)
[2022-10-23 10:57] LABS: Blood Morphology Comment NOT SEEN (NOT SEEN); Platelet Estimate DECR; White Blood Cell Scan OK (OK)
--- NOTE | 2022-10-23 16:41 | EKG ---
Test Date: 2022-10-22 Test Time: 09:52:30 Metal Sander And Finisher: MEHDI MEASUREMENT RESULTS: Intervals: Rate: 74 NC: 144 QRSD: 78 QT: 418 QTc: 463 Hammond: P: 66 NC: 144 QRS: 66 T: 50 INTERPRETIVE STATEMENTS: Normal sinus rhythm Possible Anterior infarct, age undetermined Abnormal ECG Compared to ECG 03/24/2013 15:58:44 Myocardial infarct finding now present Atrial premature complex(es) no longer present Electronically Signed On 10-23-22 16:37:15 RIGGING SUPERVISOR by Himanshu Ibanez
[2022-10-23] MEDS: ENOXAPARIN 30 MG/0.3 ML SQ SCH (16:50)
[2022-10-24 05:59] LABS: Absolute Lymphocytes (CBC) 0.8 K/uL (0.7-4.9); Hematocrit 36.9 % (36.0-45.0); Lymphocytes % 16.9 % (15.3-44.8); MCV 89.6 fL (80-100); MPV 8.5 fL (7.6-11.3); RBC Red Blood Cell Count 4.11 M/uL (3.86-4.86)
[2022-10-24 06:19] LABS: Albumin 1.9 g/dL (3.4-5.0); Bilirubin Total 0.7 mg/dL (0.2-1.0); Potassium 3.8 mmol/L (3.5-5.1); Protein, Total 5.6 g/dL (6.4-8.2)
[2022-10-24] MEDS: LEVOTHYROXINE SOD 0.1 MG TAB PO SCH (06:20)
[2022-10-24] MEDS: PANTOPRAZOLE 40MG TABLET PO SCH (06:20)
[2022-10-24] MEDS: INSULIN -REGULAR HUMAN 50 UNIT/0.5 ML ML SQ SCH ×4 (07:30→20:39)
--- NOTE | 2022-10-24 08:13 | P.PN ---
Subjective Date of Service: 10/24/22 Primary Care Provider: Tyler Chief Complaint: hepatic encephalthy Subjective: No new changes Review of Systems 10-point ROS is otherwise unremarkable Respiratory: Cough Physical Examination - Vital Signs Temperature: 98.1 F Blood Pressure: 170/99 Pulse: 91 Respirations: 17 Pulse Ox (%): 99 - Physical Exam General: Alert, In no apparent distress HEENT: Atraumatic, PERRLA, EOMI Neck: Supple, JVD not distended Respiratory: Clear to auscultation bilaterally, Normal air movement Cardiovascular: Regular rate/rhythm, Normal S1 S2 Gastrointestinal: Normal bowel sounds, No tenderness Musculoskeletal: No tenderness Integumentary: No rashes Neurological: Normal speech, Normal tone, Normal affect Lymphatics: No axilla or inguinal lymphadenopathy Assessment And Plan - Current Problems (Diagnosis) (1) Hepatic encephalopathy Current Visit: Yes Status: Acute Plan: start the patient on lactulose 30ml po bid. Will check lactulose daily. ammonia level is trending downward. Will possible discharge tomorrow (2) Hepatocellular carcinoma Current Visit: Yes Status: Chronic Plan: She was on chemotherapy. Prednisone for the radiation induced cough. Will hold the prednisone due to the sugar effects. However is she starts coughing again. will restart it at 5 rather than 10mg. See if a lower dosage would work. We can increase it to the regular dosage if needed. (3) Diabetes Current Visit: Yes Status: Chronic Plan: continue januvia. Start her on some iv fluids and a sliding scale. Will adjust her medications as needed. Qualifiers: Diabetes mellitus type: type 2 Diabetes mellitus alf insulin use: without terminologist use Diabetes mellitus complication status: without complication Qualified Code(s): E11.9 - Type 2 diabetes mellitus without complications (4) Hypothyroidism, unspecified Current Visit: Yes Status: Chronic Plan: restart her home dosage of levothyroxine Qualifiers: Hypothyroidism type: unspecified Qualified Code(s): E03.9 - Hypothyroidism, unspecified (5) Unspecified protein-calorie malnutrition Current Visit: Yes Status: Acute Plan: consult PT to ambulate the patient before sending her home Qualifiers: Protein-calorie malnutrition severity: moderate Qualified Code(s): E44.0 - Moderate protein-calorie malnutrition (6) Chemotherapy adverse reaction Current Visit: Yes Status: Chronic Plan: She has been on chronic prednisone for the chemo induced cough and sob. The patient is scared to restart the prednisone. Will start her no dulera. See if this improves her cough. Qualifiers: Encounter type: subsequent encounter Qualified Code(s): T45.1X5D - Adverse effect of antineoplastic and immunosuppressive drugs, subsequent encounter (7) Thrombocytopenia Current Visit: Yes Status: Acute Plan: Patient is at high risk for dvt. Do not hold the lovenox. She has an active cancer which would explain the thrombocytopenia. If she actively bleeds we can give platlets Discharge Plan: Home Plan to discharge in: 24 Hours - Code Status/Comfort Care Code Status Assessed: No Code Status: Full Code Critical Care: No Time Spent Managing PTS Care (In Minutes): 25
[2022-10-24] MEDS: SPIRONOLACTONE 25 MG TABLET PO SCH (09:11)
[2022-10-24] MEDS: LACTULOSE 20 GM/30 ML UCUP PO SCH ×2 (09:11→20:39)
[2022-10-24] MEDS: DULERA 100/5 (MOMETASONE/FORMOTEROL) INHALER IH SCH ×2 (09:11→20:40)
[2022-10-24] MEDS: AMLODIPINE 2.5 MG TAB PO SCH (09:11)
[2022-10-24] MEDS: INSULIN GLARGINE 100 UNIT/ML SQ SCH (09:12)
[2022-10-24] MEDS: NA CHLORIDE 0.9% 1,000 ML IV SCH (10:42)
[2022-10-24] MEDS: ENOXAPARIN 30 MG/0.3 ML SQ SCH (16:59)
[2022-10-25] MEDS: NA CHLORIDE 0.9% 1,000 ML IV SCH (01:04)
[2022-10-25 01:26] VITALS: BMI 19.5
[2022-10-25] MEDS: LEVOTHYROXINE SOD 0.1 MG TAB PO SCH (05:54)
[2022-10-25] MEDS: PANTOPRAZOLE 40MG TABLET PO SCH (05:54)
[2022-10-25 06:46] LABS: Absolute Lymphocytes (CBC) 1.1 K/uL (0.7-4.9); Hematocrit 38.6 % (36.0-45.0); Lymphocytes % 19.3 % (15.3-44.8); MCV 89.5 fL (80-100); MPV 8.4 fL (7.6-11.3); RBC Red Blood Cell Count 4.31 M/uL (3.86-4.86)
[2022-10-25 06:56] LABS: Albumin 2.1 g/dL (3.4-5.0); Bilirubin Total 0.8 mg/dL (0.2-1.0); Potassium 3.9 mmol/L (3.5-5.1); Protein, Total 6.2 g/dL (6.4-8.2)
[2022-10-25] MEDS: INSULIN -REGULAR HUMAN 50 UNIT/0.5 ML ML SQ SCH ×4 (07:30→21:00)
[2022-10-25] MEDS: SPIRONOLACTONE 25 MG TABLET PO SCH (08:41)
[2022-10-25] MEDS: AMLODIPINE 2.5 MG TAB PO SCH (08:41)
[2022-10-25] MEDS: INSULIN GLARGINE 100 UNIT/ML SQ SCH (08:42)
[2022-10-25] MEDS: DULERA 100/5 (MOMETASONE/FORMOTEROL) INHALER IH SCH ×2 (08:42→21:00)
[2022-10-25] MEDS: LACTULOSE 20 GM/30 ML UCUP PO SCH ×2 (08:45→21:38)
[2022-10-25] MEDS ORDERED: FUROSEMIDE 40 MG/4 ML VIAL IV ONE (09:00)
--- NOTE | 2022-10-25 09:09 | P.DS ---
Admission Date: 10/22/22 Discharge Date: 10/25/22 Primary Care Provider: Tyler Disposition: ROUTINE DISCHARGE Discharge Condition: GOOD Reason for Admission: hepatic encephalthy - Problems (1) Hepatic encephalopathy Current Visit: Yes Status: Acute (2) Hepatocellular carcinoma Current Visit: Yes Status: Chronic (3) Diabetes Current Visit: Yes Status: Chronic Qualifiers: Diabetes mellitus type: type 2 Diabetes mellitus [facility] insulin use: without terminal supervisor use Diabetes mellitus complication status: without complication Qualified Code(s): E11.9 - Type 2 diabetes mellitus without complications (4) Hypothyroidism, unspecified Current Visit: Yes Status: Chronic Qualifiers: Hypothyroidism type: unspecified Qualified Code(s): E03.9 - Hypothyroidism, unspecified (5) Unspecified protein-calorie malnutrition Current Visit: Yes Status: Acute Qualifiers: Protein-calorie malnutrition severity: moderate Qualified Code(s): E44.0 - Moderate protein-calorie malnutrition (6) Chemotherapy adverse reaction Current Visit: Yes Status: Chronic Qualifiers: Encounter type: subsequent encounter Qualified Code(s): T45.1X5D - Adverse effect of antineoplastic and immunosuppressive drugs, subsequent encounter (7) Thrombocytopenia Current Visit: Yes Status: Acute Brief History of Present Illness: Patient is a pleasant woman who is confused. Her daughter [place] [phone] provide the blanks in the story. The patient has a history of hepatocellular cancer due to Hepatitis C. She had treatment with Dr. Richards. The patient is being treated for her cancer at [facility]. The patient also has hypothyroidism, dm2. Did have chemoradiation. The radiation caused a cough. She has been on prednisone 10mg for this daily for the past several months. The patient has been fatigued and confused for the past few days. She was started on Lactulose 15ml po bid. However she was becoming more lethargic and non communicative. The patient was also complainting about weakness. The daughter was concerned and called EMS. She is very weak in the ER. Requiring nursing to roll her. The patient is awake and able to communicate well. Otherwise no complaints Hospital Course: Patient is doing well. Will discharge her home. She does not want to continue the prednisone. Start her on inhaled steroids and breathing treatments. have spent 10min educating her on the use of inhalers. Will have he seen by Dr. Virk for the radiation pneumonitis. Will have her follow up in the office. Thank me for allowing me to take part in this patients care. Vital Signs/Physical Exam: Temp Pulse Resp BP Pulse Ox 97.7 F 93 H 19 192/81 H 100 10/25/22 04:00 10/25/22 08:41 10/25/22 04:00 10/25/22 08:41 10/25/22 04:00 General: Alert, In no apparent distress HEENT: Atraumatic, PERRLA, EOMI Neck: Supple, JVD not distended Respiratory: Clear to auscultation bilaterally, Normal air movement Cardiovascular: Regular rate/rhythm, Normal S1 S2 Gastrointestinal: Normal bowel sounds, No tenderness Musculoskeletal: No tenderness Integumentary: No rashes Neurological: Normal speech, Normal tone, Normal affect Lymphatics: No axilla or inguinal lymphadenopathy Laboratory Data at Discharge: WBC 5.90 K/uL (4.3-10.9) 10/25/22 06:13 Hgb 12.3 g/dL (12.0-15.0) 10/25/22 06:13 Hct 38.6 % (36.0-45.0) 10/25/22 06:13 Plt Count 60 K/uL (152-406) L 10/25/22 06:13 PT 9.8 SECONDS (9.5-12.5) 10/22/22 09:40 INR 0.89 10/22/22 09:40 APTT 23.8 SECONDS (24.3-36.9) L 10/22/22 09:40 Sodium 139 mmol/L (136-145) 10/25/22 06:13 Potassium 3.9 mmol/L (3.5-5.1) 10/25/22 06:13 BUN 37 mg/dL (7-18) H 10/25/22 06:13 Creatinine 1.24 mg/dL (0.55-1.02) H 10/25/22 06:13 Glucose 86 mg/dL (74-106) 10/25/22 06:13 Magnesium 2.5 mg/dL (1.6-2.4) H 10/22/22 09:40 Total Bilirubin 0.8 mg/dL (0.2-1.0) 10/25/22 06:13 AST 86 U/L (15-37) H 10/25/22 06:13 ALT 102 U/L (13-56) H 10/25/22 06:13 Alkaline Phosphatase 267 U/L (45-117) H 10/25/22 06:13 Triglycerides 244 mg/dL (<150) H 10/23/22 09:36 Cholesterol 360 mg/dL (<200) H 10/23/22 09:36 HDL Cholesterol 72 mg/dL (40-60) H 10/23/22 09:36 Cholesterol/HDL Ratio 5.00 10/23/22 09:36 Home Medications: Amlodipine Besylate [Norvasc] 1 tab PO DAILY 10/23/22 Empagliflozin [Jardiance] 25 mg PO DAILY 10/23/22 Lactulose 15 ml PO DAILY 10/23/22 Levothyroxine [Synthroid] 100 mcg PO [id number] 10/23/22 Omeprazole [Prilosec] 40 mg PO DAILY 10/23/22 Spironolactone [Aldactone] 100 mg PO DAILY 10/23/22 carvediloL [Carvedilol] 6.25 mg PO BID 10/23/22 Albuterol Inhaler [Ventolin Inhaler*] 2 puff IH Q6H PRN 30 Days #30 gm 10/25/22 Albuterol Neb [Proventil 0.083% Neb Soln] 2.5 mg IH Q6H PRN 30 Days #90 ml 10/25/22 Mometasone/Formoterol [Dulera 100 Mcg-5 Mcg Inhaler] 8.8 gm IH BID 30 Days #60 gm 10/25/22 New Medications: Mometasone/Formoterol [Dulera 100 Mcg-5 Mcg Inhaler] 8.8 gm IH BID 30 Days #60 gm Albuterol Neb [Proventil 0.083% Neb Soln] 2.5 mg IH Q6H PRN 30 Days #90 ml PRN Reason: Shortness Of Breath Albuterol Inhaler [Ventolin Inhaler*] 2 puff IH Q6H PRN 30 Days #30 gm PRN Reason: Shortness Of Breath Diet: ADA Activity: Ad golden Followup: Juancarlos Scott MD [ACTIVE - CAN ADMIT] - 1 Week Berto Dupont MD [ACTIVE - CAN ADMIT] - 1-2 Weeks Time spent managing pt's care (in minutes): 40
--- NOTE | 2022-10-25 12:42 | P.CNS ---
Date of Consult: 10/25/22 Primary Care Provider: Tyler Chief Complaint: SOB and cough History of Present Illness: Patient is 62 years of age treated with chemo and radiation therapy for hepatocellular cancer secondary to hepatitis she also has cirrhosis of the liver has been short of breath cough congestion for the past month does not smoke or drink apparently she was told that she has radiation pneumonitis no prior history of cardiopulmonary problems patient is diabetic hypertensive denies any swelling of her lower extremity Allergies No Known Allergies Allergy (Verified 10/23/22 00:11) Home Medications: Amlodipine Besylate [Norvasc] 1 tab PO DAILY 10/23/22 Empagliflozin [Jardiance] 25 mg PO DAILY 10/23/22 Lactulose 15 ml PO DAILY 10/23/22 Levothyroxine [Synthroid] 100 mcg PO [id number] 10/23/22 Omeprazole [Prilosec] 40 mg PO DAILY 10/23/22 Spironolactone [Aldactone] 100 mg PO DAILY 10/23/22 carvediloL [Carvedilol] 6.25 mg PO BID 10/23/22 Albuterol Inhaler [Ventolin Inhaler*] 2 puff IH Q6H PRN 30 Days #30 gm 10/25/22 Albuterol Neb [Proventil 0.083% Neb Soln] 2.5 mg IH Q6H PRN 30 Days #90 ml 10/25/22 Mometasone/Formoterol [Dulera 100 Mcg-5 Mcg Inhaler] 8.8 gm IH BID 30 Days #60 gm 10/25/22 - Past Medical/Surgical History Diabetic: Yes -: hepatocellular CA -: DM II -: HYPOTHYROIDISM -: CHEMORADIATION -: CVA -: LIVER CIRRHOSIS -: LIVER CA - Social History Smoking Status: Unknown if ever smoked Alcohol use: No CD- Drugs: No Caffeine use: Yes Place of Residence: Home Review of Systems 10-point ROS is otherwise unremarkable General: Weakness Respiratory: Cough, Shortness of Breath Physical Examination Temp Pulse Resp BP Pulse Ox 97.6 F 93 H 20 192/81 H 98 10/25/22 08:00 10/25/22 08:41 10/25/22 08:00 10/25/22 08:41 10/25/22 08:00 General: Alert, In no apparent distress, Mild distress Neck: Supple Respiratory: Clear to auscultation bilaterally Cardiovascular: No edema, Regular rate/rhythm, Normal S1 S2 Gastrointestinal: Normal bowel sounds, Soft and benign Musculoskeletal: No clubbing, No swelling - Problems (1) Shortness of breath Current Visit: Yes Status: Acute Plan: Patient is 62 years of age with a history of parasellar cancer s/p chemoradiation admitted with dyspnea for the past month apparently she was informed that she has some radiation pneumonitis although chest x-ray is clear patient has renal failure number cytopenia consistent with a cirrhosis. We will plan to do Dopplers of lower extremity echocardiogram IV Lasix increase amlodip ine blood pressure is very elevated 1 dose of Lasix currently she was treated with prednisone that had to be stopped due to high blood sugar increase amlodipine to 5 mg daily resume carvedilol and her Farxiga from home
[2022-10-25] MEDS: AMLODIPINE 5 MG TAB PO SCH (12:55)
--- NOTE | 2022-10-25 14:26 | RAD REPORT ---
EXAM DESCRIPTION: CT - Thorax Wo Con - 10/25/2022 1:33 pm CLINICAL HISTORY: Shortness of breath history of radiation pneumonitis COMPARISON: Extrem Venous W Compress Chang dated 10/25/2022; Abdomen W/Wo Contrast dated 07/21/2021; CHES T SINGLE VIEW dated 03/24/2013; Chest Single View dated 10/22/2022 TECHNIQUE: Axial thin cut images of the chest were obtained without IV contrast. Multiplanar reforma ts were generated and reviewed. All CT scans are performed using dose optimization technique as appropriate and may include automated exposure control or mA/KV adjustment according to patient size. FINDINGS: Nodular step 9 millimeter soft tissue thickening in the right suprahilar region, axial kaylah ge 16/51. Adjacent fibrotic linear changes with scarring along the worksheet perihilar area. An anter iorly situated 7 millimeter nodule is present along the anterior margin of this region. No pleural thickening or pleural effusion. No pneumothorax. No abnormal mediastinal or hilar masses or lymphadenopathy seen, within limits of noncontrast techniq ue. Pulmonary artery and thoracic aorta are unremarkable apart from mild atherosclerotic changes of t he aortic arch. No chest wall mass or abnormal axillary lymphadenopathy. Evaluation of the solid abdominal structures reveals nodular contour of the liver, with asymmetric hy pertrophy of the caudate lobe, and moderate ascites, findings suggestive of sequelae of cirrhosis. IMPRESSION: Right perihilar fibrotic changes with a soft tissue suprahilar soft tissue 9 millimeter component, favored to represent post treatment changes. An anteriorly situated 7 millimeters nodule is present along the anterior margin of this region. While findings favor post treatment changes, given the history, the anteriorly situated nodule may be new given its position. Please correlate with prior CT imaging of the chest if available. Otherwise consider short-term interval CT follow-up in 3 months to ensure stability of the finding. Evaluation of the upper abdominal structures reveals cirrhotic changes of the liver and moderate asci jc.
--- NOTE | 2022-10-25 14:32 | RAD REPORT ---
EXAM DESCRIPTION: US - Extrem Venous W Compress Chang - 10/25/2022 1:57 pm CLINICAL HISTORY: Liver and lung cancer. Concern for DVT COMPARISON: None. TECHNIQUE: Real-time sonographic evaluation of the bilateral lower extremity deep venous systems was performed. FINDINGS: Normal compressibility, flow augmentation, phasic flow and spontaneous flow is identified in both the left and right lower extremity deep venous systems. No intraluminal filling defects seen. IMPRESSION: No DVT in either lower extremity.
[2022-10-25] MEDS: ENOXAPARIN 30 MG/0.3 ML SQ SCH (16:58)
[2022-10-25] MEDS: carvediloL 6.25 MG TAB PO SCH (21:38)
[2022-10-25 23:13] VITALS: O2SAT 100
[2022-10-26 00:52] VITALS: TEMP 97.3
[2022-10-26] MEDS: LEVOTHYROXINE SOD 0.1 MG TAB PO SCH (05:55)
[2022-10-26] MEDS: PANTOPRAZOLE 40MG TABLET PO SCH (05:55)
[2022-10-26] MEDS ORDERED: LEVOTHYROXINE SOD 0.1 MG TAB PO SCH (06:00)
[2022-10-26 06:29] VITALS: BP 122/64
--- NOTE | 2022-10-26 06:57 | ECHO ---
HEIGHT: 5 ft 3 in WEIGHT: 110 lb 0 oz DATE OF STUDY: 10/25/[address]: Berto Dupont MD 2-DIMENSIONAL: YES M.MODE: YES DOPPLER: YES COLOR FLOW: YES TDS: PORTABLE: YES DEFINITY: BUBBLE STUDY: DIAGNOSIS: SHORTNESS OF BREATH, ON CHEMO CARDIAC HISTORY: CATHERIZATION: NO SURGERY: NO PROSTHETIC VALVE: NO PACEMAKER: NO MEASUREMENTS (cm) DIASTOLIC (NORMALS) SYSTOLIC (NORMALS) IVSd 0.9 (0.6-1.2) LA Diam 2.6 (1.9-4.0) LVEF 64% LVIDd 3.6 (3.5-5.7) LVIDs 2.4 (2.0-3.5) %FS 34% LVPWd 1.1 (0.6-1.2) Ao Diam 2.7 (2.0-3.7) 2 DIMENSIONAL ASSESSMENT: RIGHT ATRIUM: NORMAL LEFT ATRIUM: NORMAL RIGHT VENTRICLE: NORMAL LEFT VENTRICLE: NORMAL TRICUSPID VALVE: NORMAL MITRAL VALVE: LEFT VENTRICULAR HYPERTROPHY PULMONIC VALVE: NORMAL AORTIC VALVE: NORMAL PERICARDIAL EFFUSION: NONE AORTIC ROOT: NORMAL LEFT VENTRICULAR WALL MOTION: NORMAL DOPPLER/COLOR FLOW: NORMAL COMMENTS: 1. NORMAL LEFT VENTRICULAR EJECTION FRACTION 60-65% 2. NORMAL WALL MOTION 3. GRADE I DIASTOLIC DYSFUNCTION 4. MILD CONCENTRIC LEFT VENTRICULAR HYPERTROPHY 5. LARGE ASCITES IS SEEN TECHNOLOGIST: ALISSA SHAFER
[2022-10-26] MEDS: INSULIN -REGULAR HUMAN 50 UNIT/0.5 ML ML SQ SCH ×2 (07:30→11:30)
[2022-10-26] MEDS: INSULIN GLARGINE 100 UNIT/ML SQ SCH (08:18)
[2022-10-26] MEDS: DULERA 100/5 (MOMETASONE/FORMOTEROL) INHALER IH SCH (08:18)
[2022-10-26] MEDS: AMLODIPINE 5 MG TAB PO SCH (08:19)
[2022-10-26] MEDS: carvediloL 6.25 MG TAB PO SCH (08:19)
[2022-10-26] MEDS: SPIRONOLACTONE 25 MG TABLET PO SCH (08:20)
[2022-10-26] MEDS: LACTULOSE 20 GM/30 ML UCUP PO SCH (08:21)
--- NOTE | 2022-10-26 08:28 | P.PN ---
Subjective Date of Service: 10/26/22 Primary Care Provider: Tyler Chief Complaint: SOB and cough Subjective: No new changes was not discharged yesterday Will discharge today with lactulose. amlodipine 10mg and home health with PT. Review of Systems 10-point ROS is otherwise unremarkable Physical Examination - Vital Signs Temperature: 97.3 F Blood Pressure: 122/64 Pulse: 78 Respirations: 18 Pulse Ox (%): 100 - Physical Exam General: Alert, In no apparent distress HEENT: Atraumatic, PERRLA, EOMI Neck: Supple, JVD not distended Respiratory: Clear to auscultation bilaterally, Normal air movement Cardiovascular: Regular rate/rhythm, Normal S1 S2 Gastrointestinal: Normal bowel sounds, No tenderness Musculoskeletal: No tenderness Integumentary: No rashes Neurological: Normal speech, Normal tone, Normal affect Lymphatics: No axilla or inguinal lymphadenopathy Assessment And Plan - Current Problems (Diagnosis) (1) Hepatic encephalopathy Current Visit: Yes Status: Acute Plan: start the patient on lactulose 30ml po bid. Will check lactulose daily. ammonia level is trending downward. Will possible discharge tomorrow (2) Hepatocellular carcinoma Current Visit: Yes Status: Chronic Plan: She was on chemotherapy. Prednisone for the radiation induced cough. Will hold the prednisone due to the sugar effects. However is she starts coughing again. will restart it at 5 rather than 10mg. See if a lower dosage would work. We can increase it to the regular dosage if needed. (3) Diabetes Current Visit: Yes Status: Chronic Plan: continue januvia. Start her on some iv fluids and a sliding scale. Will adjust her medications as needed. Qualifiers: Diabetes mellitus type: type 2 Diabetes mellitus correction insulin use: without airplane pilot commercial use Diabetes mellitus complication status: without c omplication Qualified Code(s): E11.9 - Type 2 diabetes mellitus without complications (4) Hypothyroidism, unspecified Current Visit: Yes Status: Chronic Plan: restart her home dosage of levothyroxine Qualifiers: Hypothyroidism type: unspecified Qualified Code(s): E03.9 - Hypothyroidism, unspecified (5) Unspecified protein-calorie malnutrition Current Visit: Yes Status: Acute Plan: consult PT to ambulate the patient before sending her home Qualifiers: Protein-calorie malnutrition severity: moderate Qualified Code(s): E44.0 - Moderate protein-calorie malnutrition (6) Chemotherapy adverse reaction Current Visit: Yes Status: Chronic Plan: She has been on chronic prednisone for the chemo induced cough and sob. The patient is scared to restart the prednisone. Will start her no dulera. See if this improves her cough. Qualifiers: Encounter type: subsequent encounter Qualified Code(s): T45.1X5D - Adverse effect of antineoplastic and immunosuppressive drugs, subsequent encounter (7) Thrombocytopenia Current Visit: Yes Status: Acute Plan: Patient is at high risk for dvt. Do not hold the lovenox. She has an active cancer which would explain the thrombocytopenia. If she actively bleeds we can give platlets
== END 2022-10-26 12:24 | disposition home health service (06) | DRG 442 ==
LOC: ER 09:26 → ERHOLD 13:35 → 2ND 23:28
PROVIDERS: ADMIT Internal Medicine; ATTEND Internal Medicine
DX: K76.82 Hepatic encephalopathy (principal); C22.0 Liver cell carcinoma; J70.0 Acute pulmonary manifestations due to radiation; E44.0 Moderate protein-calorie malnutrition; Z68.1 Body mass index [BMI] 19.9 or less, adult; B19.20 Unspecified viral hepatitis C without hepatic coma; D69.6 Thrombocytopenia, unspecified; E11.649 Type 2 diabetes mellitus with hypoglycemia without coma; K74.60 Unspecified cirrhosis of liver; E03.9 Hypothyroidism, unspecified; T45.1X5A Adverse effect of antineoplastic and immunosuppressive drugs, initial encounter; R68.0 Hypothermia, not associated with low environmental temperature; R05.9 Cough, unspecified; Z86.73 Personal history of transient ischemic attack (TIA), and cerebral infarction without residual deficits; Z85.05 Personal history of malignant neoplasm of liver; Z79.890 Hormone replacement therapy; Z79.899 Other long term (current) drug therapy; Z20.822 Contact with and (suspected) exposure to COVID-19
CPT/HCPCS: 36415; 51702; 70450; 71045; 71250; 80048; 80053; 80061; 80076; 81003; 82140; 82550; 82947; 83036; 83605; 83735; 84439; 84443; 84484; 85025; 85610; 85730; 87040; 87811; 93005; 93306; 93970; 96374; 97116; 97161; 97530; 99284; J1650; J1815; J1940; J3535; J7030

== ENCOUNTER 2023-09-07 11:49 | Inpatient (IN) | payer OTHER ==
[2023-09-07] MEDS ORDERED: ROCURONIUM 50 MG/5 ML VIAL IV ONE (11:50)
[2023-09-07] MEDS ORDERED: ETOMIDATE 20 MG/10 ML VIAL IV ONE (11:50)
--- NOTE | 2023-09-07 12:27 | RAD REPORT ---
EXAM DESCRIPTION: Danyel Single View09/07/2023 12:22 pm CLINICAL HISTORY: Device placement endotracheal tube placement IMPRESSION: An endotracheal tube has been inserted with its tip at the level aortic arch
[2023-09-07] MEDS ORDERED: propofoL 1,000 MG/100 ML VIAL IV ONE (12:49)
[2023-09-07 12:50] LABS: Absolute Lymphocytes (CBC) 0.9 K/uL (0.7-4.9); Hematocrit 31.6 % (36.0-45.0); Lymphocytes % 32.8 % (15.3-44.8); MCV 89.6 fL (80-100); MPV 9.1 fL (7.6-11.3); Platelets 69 thou/uL (152-406); RBC Red Blood Cell Count 3.53 M/uL (3.86-4.86)
[2023-09-07 13:01] LABS: Protime INR 1.07
[2023-09-07 13:11] LABS: Albumin 2.2 g/dL (3.4-5.0); Bilirubin Total 0.6 mg/dL (0.2-1.0); Potassium 4.2 mEq/L (3.5-5.1); Protein, Total 8.2 g/dL (6.4-8.2); Troponin High Sensitivity 7.9 pg/mL (<58.9)
[2023-09-07 13:31] LABS: Blood Morphology Comment NOTED (NOT SEEN); Platelet Estimate DECR; White Blood Cell Scan OK (OK)
[2023-09-07 13:32] LABS: Teardrop Cell FEW
[2023-09-07 13:59] LABS: Specific Gravity 1.014 (1.005-1.030); Urine Bacteria None Seen /HPF (<20); Urine Bilirubin NEGATIVE (Negative); Urine Blood Negative (Negative); Urine Clarity Clear (Clear); Urine Color Light-Yellow (Yellow); Urine Glucose NEGATIVE (Negative); Urine Mucus Slight /HPF (None Seen); Urine Protein 2+ (Negative); Urine RBC <5 /HPF (None Seen); Urine Urobilinogen Normal (Normal)
--- NOTE | 2023-09-07 14:20 | RAD REPORT ---
EXAM DESCRIPTION: CT - Head Brain Wo Cont - 09/07/2023 1:59 pm CLINICAL HISTORY: AMS COMPARISON: Ct Stroke Brain Wo Cont dated 10/22/2022; HEAD BRAIN W O CONTRAST dated 03/24/2013 TECHNIQUE: Noncontrast head CT images were obtained without IV contrast. Multiplanar reformats were generated and reviewed. All CT scans are performed using dose optimization technique as appropriate and may include automated exposure control or mA/KV adjustment according to patient size. FINDINGS: No intracranial hemorrhage, mass, or edema. Midline structures are unremarkable. Normal ventricular caliber for age. Grande-white matter differentiation is preserved, without evidence of acute infarct. No abnormal extra- axial fluid collections. Mastoid air cells and visualized portions of the paranasal sinuses are clear. Patient is intubated. T here is fluid opacification of the nasopharynx. No acute bony findings. IMPRESSION: No evidence of an acute intracranial process.
[2023-09-07] MEDS ORDERED: LACTULOSE 20 GM/30 ML UCUP ONE ×2 (14:25→14:26)
--- NOTE | 2023-09-07 15:01 | RAD REPORT ---
EXAM DESCRIPTION: CT - Abdomen Pelvis Wo Contrast - 09/07/2023 2:03 pm CLINICAL HISTORY: ABDOMINAL DISTENTION COMPARISON: Abdomen Pelvis Wo Contrast dated 11/09/2022; Abdomen W/Wo Contrast dated 07/21/2021; ABD OMEN W CONTRAST dated 03/06/2013; Thorax Wo Con dated 10/25/2022 TECHNIQUE: Thin cut axial CT imaging of the abdomen and pelvis was performed without IV contrast. Mu ltiplanar reformats were generated and reviewed. All CT scans are performed using dose optimization technique as appropriate and may include automated exposure control or mA/KV adjustment according to patient size. FINDINGS: No suspicious findings in the lung bases apart from subsegmental dependent right lower lob e opacification which may reflect atelectasis. Anterior peripheral right lower lobe 6 mm nodule, not well evaluated given motion may reflect nodular component of atelectasis as well. The liver shows nodular contour with relative right lobe atrophy and caudate hypertrophy suggesting c irrhosis. Stable wedge-shaped posterior right liver lobe region of hypoattenuation, not well characte rized within limits of noncontrast evaluation and beam hardening artifact at that level. Spleen shows stable subjectively bulky configuration, measuring 11.7 cm in long axis, not significantly changed i n appearance. Adrenal glands and pancreas show no suspicious findings. Biliary tree are also without suspicious finding. Symmetric renal contour, without suspicious parenchymal findings within limits of noncontrast techniq ue. No evidence of radiopaque calculi or hydroureteronephrosis. No dilated bowel loops. Apparent wall thickening of the gallbladder and most of the colon, especially the proximal colon, favored to relate to sequelae of longstanding ascites or portal hypertension. Mo derate free ascites. No free air, fluid collections, or inflammatory stranding. No hernia, mass or bu lky lymphadenopathy. Small calcified uterine fibroids. The urinary bladder is decompressed with Lopez catheter in place. No suspicious bony findings. IMPRESSION: Stable moderate volume of free ascites. Other Stigmata of cirrhosis again seen. Apparent wall thickening of the gallbladder and most of the colon, favored to represent sequelae of l ongstanding fascitis and/or portal hypertension. Right basilar subsegmental airspace opacification and a 6 mm nodule, new since the prior CT, favored to relate to atelectasis. Superimposed pneumonia would be difficult to exclude.
--- NOTE | 2023-09-07 15:50 | ER ---
Nurse's Notes [facility] [place] Name: Angi Sterling Age: 63 yrs Sex: Female : 1960 Arrival Date: 09/07/2023 Time: 11:49 Bed 3 Private MD: Diagnosis: Altered mental status, unspecified;Unspecified cirrhosis of liver;Hyperammonemia Presentation: 09/07 12:00 Chief complaint: EMS states: they were called to the house of the patient for the ap3 patient being unresponsive. The patients last known well is last night prior to bed, however it is unknown what time she went to bed last night. EMS initiated 20g IV to the left forearm and started normal saline. 12:00 Coronavirus screen: At this time, the client does not indicate any symptoms associated ap3 with coronavirus-19. Ebola Screen: No symptoms or risks identified at this time. Initial Sepsis Screen: Does the patient meet any 2 criteria? No. Patient's initial sepsis screen is negative. Does the patient have a suspected source of infection? No. Patient's initial sepsis screen is negative. Risk Assessment: Do you want to hurt yourself or someone else? Patient reports no desire to harm self or others. Onset of symptoms is unknown. Care prior to arrival: Medication(s) given: Normal saline infusion, IV initiated. 20 GA, in the left forearm. 12:00 Method Of Arrival: EMS: [facility] ap3 12:00 Acuity: ALISHA 2 ap3 12:50 Acuity: ALISHA 1 hb Triage Assessment: 12:20 General: Behavior is unresponsive. General: Appears comfortable. Pain: Unable to use ap3 pain scale. Patient is unresponsive. Neuro: Level of Consciousness is unresponsive. Cardiovascular: Patient's skin is warm and dry. Respiratory: Airway is patent Respiratory effort is even, unlabored, Respiratory pattern is regular, symmetrical. Historical: - Allergies: 13:30 No Known Allergies; tl4 - Home Meds: 13:30 amlodipine 2.5 mg tab 1 tab once daily [Active]; carvedilol 6.25 mg Oral tab 1 tab 2 tl4 times per day [Active]; lactulose 10 gram/15 mL Oral soln 15 mL once daily [Active]; levothyroxine 100 mcg cap 1 cap once daily [Active]; omeprazole 40 mg Oral cpDR 1 cap once daily [Active]; spironolactone 100 mg Oral tab 1 tab once daily [Active]; Humalog Sub-Q [Active]; Lenvima oral [Active]; - PMHx: 12:20 cirrhosis of liver; CVA; diabetes mellitus; liver cancer; ap3 - Immunization history:: Adult Immunizations unknown. - Social history:: Smoking status: unknown. - History obtained from: daughter. Screenin:22 Abuse screen: Denies threats or abuse. Nutritional screening: No deficits noted. ap3 Tuberculosis screening: No symptoms or risk factors identified. 13:23 [facility] ED Fall Risk Assessment (Adult) History of falling in the last 3 months, tl4 including since admission No falls in past 3 months (0 pts) Confusion or Disorientation Yes (5 pts) Intoxicated or Sedated No (0 pts) Impaired Gait Yes (1 pt) Mobility Assist Device Used No (0 pt) Altered Elimination No (0 pt) Score/Fall Risk Level 3 or more points = High Risk Maintained a safe environment, Provided non-skid footwear, Hourly rounding (assess needs \T\ fall precautionary measures) done, Used gait belt as appropriate. Assessment: 13:19 Reassessment: Patient and/or family updated on plan of care and expected duration. Pain tl4 level reassessed. Pt is intubated, pt remains unresponsive, calm. Propofol drip being administered. Family at bedside.. GI: No deficits noted. No signs and/or symptoms were reported involving the gastrointestinal system. : No deficits noted. No signs and/or symptoms were reported regarding the genitourinary system. EENT: No deficits noted. No signs and/or symptoms were reported regarding the EENT system. Derm: No deficits noted. No signs and/or symptoms reported regarding the dermatologic system. Musculoskeletal: No deficits noted. No signs and/or symptoms reported regarding the musculoskeletal system. 14:00 Reassessment: No changes from previously documented assessment. Patient and/or family tl4 updated on plan of care and expected duration. Pain level reassessed. 14:51 Reassessment: No changes from previously documented assessment. Patient and/or family tl4 updated on plan of care and expected duration. Pain level reassessed. 15:30 Reassessment: No changes from previously documented assessment. Patient and/or family tl4 updated on plan of care and expected duration. Pain level reassessed. 16:09 Reassessment: No changes from previously documented assessment. Patient and/or family tl4 updated on plan of care and expected duration. Pain level reassessed. Pt remains intubated. Pt appears to be ventilated without difficulty. Pt covered with warm blanket, non-slip socks applied. Family at bedside. 16:52 Reassessment: No changes from previously documented assessment. Patient and/or family tl4 updated on plan of care and expected duration. Pain level reassessed. 17:50 Reassessment: No changes from previously documented assessment. Patient and/or family tl4 updated on plan of care and expected duration. Pain level reassessed. 18:16 Reassessment: Report given to MILTON Toscano in ICU. Attempt for respiratory unsuccessful. tl4 Vital Signs: 12:00 BP 135 / 94; Pulse 68; Resp 17; Pulse Ox 100% on ETT vent; tl4 12:00 BP 154 / 70; Pulse 67; Resp 17; Pulse Ox 100% on R/A; ap3 12:16 BP 170 / 81; Pulse 66; Pulse Ox 100% on ETT vent; ap3 12:22 Weight 52.62 kg; ap3 13:00 Weight 54 kg; tl4 13:18 BP 176 / 71; Pulse 67; Resp 14; Pulse Ox 100% on ETT vent; tl4 13:25 BP 177 / 75; Pulse 68; Resp 19; Pulse Ox 100% on ETT vent; tl4 13:33 BP 169 / 69; Pulse 66; Resp 14; Pulse Ox 100% on ETT vent; tl4 13:45 BP 166 / 72; Pulse 68; Resp 21; Pulse Ox 100% on ETT vent; tl4 13:52 BP 187 / 73; Pulse 69; Resp 18; Pulse Ox 100% on ETT vent; tl4 14:03 BP 177 / 71; Pulse 68; Resp 19; Pulse Ox 100% on ETT vent; tl4 14:13 BP 176 / 71; Pulse 65; Resp 14; Pulse Ox 100% on ETT vent; tl4 14:30 BP 166 / 73; Pulse 64; Resp 12; Pulse Ox 100% on ETT vent; tl4 14:47 BP 168 / 74; Pulse 64; Resp 15; Pulse Ox 100% on ETT vent; tl4 15:00 BP 163 / 96; Pulse 62; Resp 16; Pulse Ox 100% on ETT vent; tl4 15:15 BP 150 / 62; Pulse 61; Resp 16; Pulse Ox 100% on ETT vent; tl4 15:30 BP 142 / 78; Pulse 59; Resp 13; Pulse Ox 100% on ETT vent; tl4 15:45 BP 128 / 57; Pulse 60; Resp 14; Pulse Ox 100% on ETT vent; tl4 16:00 BP 118 / 54; Pulse 55; Resp 11; Pulse Ox 100% on ETT vent; tl4 16:15 BP 99 / 53; Pulse 51; Resp 14; Pulse Ox 100% on ETT vent; tl4 16:30 BP 106 / 51; Pulse 50; Resp 14; Pulse Ox 100% on ETT vent; tl4 16:45 BP 103 / 53; Pulse 49; Resp 14; Pulse Ox 100% on ETT vent; tl4 17:00 BP 105 / 52; Pulse 50; Resp 14; Pulse Ox 100% on ETT vent; tl4 17:15 BP 110 / 58; Pulse 50; Resp 14; Pulse Ox 100% on ETT vent; tl4 17:30 BP 117 / 55; Pulse 51; Resp 11; Pulse Ox 100% on ETT vent; tl4 17:43 BP 118 / 57; Pulse 51; Resp 14; Pulse Ox 100% on ETT vent; tl4 Vitals: 12:00 Cardiac Rhythm Assessment Regular Sinus rhythm. tl4 14:03 Cardiac Rhythm Assessment Regular Sinus rhythm. tl4 Elena Coma Score: 12:00 Eye Response: to pain(2). Motor Response: none(1). Verbal Response: none(1). Total: 4. tl4 ED Course: 11:52 Patient arrived in ED. eb 11:52 Chucho Dean MD is Attending Physician. ec2 11:57 Antonia Gandhi, MILTON is Primary Nurse. ap3 12:09 Assisted provider with intubation using 7.5 mm ETT via oral route. ET tube secured at ap3 23cm at the lips. Set up intubation tray. Intubated by Chucho Dean MD Placement verified by CO2 detector w/ + color change, auscultating bilateral breath sounds, Patient tolerated well. 12:15 Inserted saline lock: 20 gauge in left forearm, using aseptic technique. Blood tl4 collected. 12:19 Radiology exam delayed due to. ls3 12:20 Triage completed. ap3 12:21 Arm band placed on right wrist. ap3 12:22 Patient has correct armband on for positive identification. Bed in low position. Call ap3 light in reach. Side rails up X2. surveillance monitor on. Pulse ox on. NIBP on. 12:24 CXR XRAY In Process Unspecified. EDMS 12:46 Lactate w/ 2H reflex if indic. Sent. tl4 12:46 Protime (+inr) Sent. tl4 12:46 Ptt, Activated Sent. tl4 12:46 Blood Culture Adult (2) Sent. tl4 12:46 AMMONIA Sent. tl4 12:46 CMP Sent. tl4 12:46 CBC with Diff Sent. tl4 12:46 Troponin HS Sent. tl4 12:47 Maintain EMS IV. Dressing intact. Good blood return noted. Site clean \T\ dry. Gauge \T\ tl 4 site: 20g left forearm. 13:27 Provided Education on: ED process. tl4 13:28 EKG done, by ED staff, reviewed by Chucho Dean MD. ty 13:[address] tl4 13:50 UAM Sent. tl4 13:50 Blood Culture Adult (2) Sent. tl4 13:50 Lopez cath inserted, using sterile technique, 16 Fr., by wi, balloon inflated, to tl4 gravity drainage, urine specimen collected. 13:[address] from [address]. tl4 14:00 CT Head Brain wo Cont In Process Unspecified. EDMS 14:02 CT Abd/Pelvis - Without Contrast In Process Unspecified. EDMS 14:16 Door closed. Noise minimized. Lights dimmed. Warm blanket given. tl4 15:21 NGT: inserted 16 Fr. other inserted orally, verified with air sounds over epigastrum 16 tl4 fr OG tube. 15:50 Andree Mead MD is Hospitalizing Provider. ec2 17:54 Patient admitted, IV remains in place. tl4 Administered Medications: 12:06 Drug: Etomidate IVP 20 mg IVP once Route: IVP; Site: left forearm; ap3 15:32 Follow up: Response: No adverse reaction tl4 12:07 Drug: Rocuronium IVP 70 mg IVP once Route: IVP; Site: left forearm; ap3 15:32 Follow up: Response: No adverse reaction tl4 12:57 Drug: Propofol IV 5 mcg/kg/min IV at calculated rate See Administration Instructions; tl4 Standard concentration 1000 mg / 100 mL; Recommended max rate 50 mcg/kg/min; Titrate 2 mcg/kg/min every 5 minutes to achieve goal (see titration policy); Goal parameter RASS score 0 to -2 Route: IV; Rate: 5 mcg/kg/min; Site: left forearm; Delivery: Primary tubing; 14:13 Follow up: Response: Patient is sedated tl4 15:32 Follow up: Rate change 10 mcg/kg/min tl4 15:50 Follow up: Rate change 20 mcg/kg/min tl4 16:03 Follow up: Rate change 30 mcg/kg/min tl4 16:17 Follow up: Rate change 40 mcg/kg/min tl4 16:52 Follow up: Rate change 35 mcg/kg/min tl4 15:21 Drug: Lactulose PO 30 grams 45 ml PO once; through OG tube Volume: 45 ml; Route: PO; tl4 15:32 Follow up: Response: No adverse reaction tl4 Medication: 12:47 VIS not applicable for this client. tl4 Outcome: 15:50 Decision to Hospitalize by Provider. ec2 18:17 Admitted to ICU accompanied by nurse, via stretcher, room ICU 1, with oxygen, on tl4 monitor, with chart, Report called to Everton White RN 18:17 Condition: stable 18:17 Instructed on the need for admit, 18:50 Patient left the ED. tl4 Signatures: Dispatcher [employer] EDSusana Mart RN RN hb Prokisch, Amanda, RN RN ap3 Hailey Huerta Lynzie 3 Chucho Dean MD MD ec2 Loglee, Blair tl4 Gagandeep Velasquez Corrections: (The following items were deleted from the chart) 13:01 12:47 Inserted saline lock: 20 gauge in left forearm, using aseptic technique. Blood tl4 collected. tl4
--- NOTE | 2023-09-07 15:50 | EDPHYS ---
Physician Documentation [facility] Name: Angi Sterling Age: 63 yrs Sex: Female : 1960 Arrival Date: 09/07/2023 Time: 11:49 Bed 3 Private MD: ED Physician Chucho Dean HPI: 09/07 12:12 This 63 yrs old Female presents to ER via EMS with complaints of AMS. ec2 12:12 Patient arrives today for evaluation of altered mental status. Patient with history of ec2 liver disease, history of hyperammonemia, arrives today with altered mental status, reportedly unresponsive and unable to be aroused. Patient does not provide history as she is nonresponsive. History gathered from EMS.. Historical: - Allergies: 13:30 No Known Allergies; tl4 - Home Meds: 13:30 amlodipine 2.5 mg tab 1 tab once daily [Active]; carvedilol 6.25 mg Oral tab 1 tab 2 tl4 times per day [Active]; lactulose 10 gram/15 mL Oral soln 15 mL once daily [Active]; levothyroxine 100 mcg cap 1 cap once daily [Active]; omeprazole 40 mg Oral cpDR 1 cap once daily [Active]; spironolactone 100 mg Oral tab 1 tab once daily [Active]; Humalog Sub-Q [Active]; Lenvima oral [Active]; - PMHx: 12:20 cirrhosis of liver; CVA; diabetes mellitus; liver cancer; ap3 - Immunization history:: Adult Immunizations unknown. - Social history:: Smoking status: unknown. - History obtained from: daughter. ROS: 12:12 Constitutional: as per hpi ec2 Exam: 12:12 Constitutional: GEN:Obtunded individual with minimal response to painful stimuli, ec2 secretions noted at the mouth Head: atraumatic Eyes: EOMI Ears: External ears are normal. CV: regular rate LUNGS: no respiratory distress ABD: Mildly distended SKIN: no evidence of rashes MSK: no evidence of trauma NEURO: Moves extremities in response to painful stimuli. Does not arouse spontaneously, does not arouse to verbal stimuli Vital Signs: 12:00 BP 135 / 94; Pulse 68; Resp 17; Pulse Ox 100% on ETT vent; tl4 12:00 BP 154 / 70; Pulse 67; Resp 17; Pulse Ox 100% on R/A; ap3 12:16 BP 170 / 81; Pulse 66; Pulse Ox 100% on ETT vent; ap3 12:22 Weight 52.62 kg; ap3 13:00 Weight 54 kg; tl4 13:18 BP 176 / 71; Pulse 67; Resp 14; Pulse Ox 100% on ETT vent; tl4 13:25 BP 177 / 75; Pulse 68; Resp 19; Pulse Ox 100% on ETT vent; tl4 13:33 BP 169 / 69; Pulse 66; Resp 14; Pulse Ox 100% on ETT vent; tl4 13:45 BP 166 / 72; Pulse 68; Resp 21; Pulse Ox 100% on ETT vent; tl4 13:52 BP 187 / 73; Pulse 69; Resp 18; Pulse Ox 100% on ETT vent; tl4 14:03 BP 177 / 71; Pulse 68; Resp 19; Pulse Ox 100% on ETT vent; tl4 14:13 BP 176 / 71; Pulse 65; Resp 14; Pulse Ox 100% on ETT vent; tl4 14:30 BP 166 / 73; Pulse 64; Resp 12; Pulse Ox 100% on ETT vent; tl4 14:47 BP 168 / 74; Pulse 64; Resp 15; Pulse Ox 100% on ETT vent; tl4 15:00 BP 163 / 96; Pulse 62; Resp 16; Pulse Ox 100% on ETT vent; tl4 15:15 BP 150 / 62; Pulse 61; Resp 16; Pulse Ox 100% on ETT vent; tl4 15:30 BP 142 / 78; Pulse 59; Resp 13; Pulse Ox 100% on ETT vent; tl4 15:45 BP 128 / 57; Pulse 60; Resp 14; Pulse Ox 100% on ETT vent; tl4 16:00 BP 118 / 54; Pulse 55; Resp 11; Pulse Ox 100% on ETT vent; tl4 16:15 BP 99 / 53; Pulse 51; Resp 14; Pulse Ox 100% on ETT vent; tl4 16:30 BP 106 / 51; Pulse 50; Resp 14; Pulse Ox 100% on ETT vent; tl4 16:45 BP 103 / 53; Pulse 49; Resp 14; Pulse Ox 100% on ETT vent; tl4 17:00 BP 105 / 52; Pulse 50; Resp 14; Pulse Ox 100% on ETT vent; tl4 17:15 BP 110 / 58; Pulse 50; Resp 14; Pulse Ox 100% on ETT vent; tl4 17:30 BP 117 / 55; Pulse 51; Resp 11; Pulse Ox 100% on ETT vent; tl4 17:43 BP 118 / 57; Pulse 51; Resp 14; Pulse Ox 100% on ETT vent; tl4 Elena Coma Score: 12:00 Eye Response: to pain(2). Motor Response: none(1). Verbal Response: none(1). Total: 4. tl4 Procedures: 14:03 Intubation: Intubated orally using # 4 Greg blade with 7.5 mm ETT. was successful ec2 on first attempt. Ventilated with ventilator. Cricoid pressure applied during procedure. Tube secured with ETT mahajan Placement verified by CXR, CO2 detector with (+) color change, auscultating bilateral breath sounds, Patient tolerated well. MDM: 11:53 Patient medically screened. ec2 12:12 ED course: Patient arrives today for evaluation of altered mental status. On arrival, ec2 given the patient's marked altered mental status, my concern is for airway protection. I decided to electively intubate the patient. Patient was intubated as above without issue. I will place patient on propofol for sedation, will obtain lab work, urine studies, chest x-ray, CT scan of the head to further assess patient complaint. Currently considering hyperammonemia, intracranial brain bleed, urinary tract infection.. 13:22 ED course: Metabolic profile shows renal dysfunction with a creatinine of 1.74 and a ec2 GFR of 32. Ammonia level markedly elevated at 186. Chest x-ray shows ET tube in place, troponin within normal ranges, lactic within normal ranges. CBC shows leukopenia with a WBC of 2.8, anemia with a hemoglobin of 10.6. Will give the patient lactulose for the hyperammonemia. . 13:28 ED course: EKG independently reviewed and interpreted by me, shows normal sinus rhythm, ec2 rate of 67, no acute ST segment elevations, nonconcerning intervals.. 14:03 Data reviewed: vital signs. ec2 14:28 ED course: CT scan of the head shows no acute intracranial process.. ec2 15:11 ED course: CT abdomen pelvis shows no acute process, ascites as well as stigmata of ec2 liver cirrhosis noted. . 15:49 ED course: Will admit for altered mental status, intubated individual with ec2 hyperammonemia. Discussed case with the hospitalist, pending admission.. 09/07 12:10 Order name: CBC with Diff; Complete Time: 13:43 2 09/07 12:10 Order name: CMP; Complete Time: 13:21 2 09/07 12:10 Order name: AMMONIA; Complete Time: 13:21 2 09/07 12:10 Order name: Blood Culture Adult (2) 2 09/07 12:10 Order name: UAM; Complete Time: 14:03 2 09/07 12:10 Order name: Troponin HS; Complete Time: 13:21 2 09/07 12:11 Order name: Lactate w/ 2H reflex if indic.; Complete Time: 13:21 2 09/07 12:11 Order name: Protime (+inr); Complete Time: 13:21 2 09/07 12:11 Order name: Ptt, Activated; Complete Time: 13:21 2 09/07 12:59 Order name: CBC Smear Scan; Complete Time: 13:43 EDCA 09/07 16:34 Order name: ABG Arterial Blood Gas [facility] 09/07 12:10 Order name: CXR XRAY; Complete Time: 13:21 2 09/07 12:15 Order name: CT Abd/Pelvis - Without Contrast; Complete Time: 15:10 2 09/07 12:15 Order name: CT Head Brain wo Cont; Complete Time: 14:27 2 09/07 12:10 Order name: EKG; Complete Time: 12:11 2 09/07 12:10 Order name: EKG - Nurse/Tech; Complete Time: 13:50 2 09/07 12:10 Order name: Cath; Complete Time: 13:50 2 09/07 12:11 Order name: IV Saline Lock - Large Bore; Complete Time: 12:46 2 09/07 12:11 Order name: Labs collected and sent; Complete Time: 12:46 09/07 12:11 Order name: O2 Per Protocol; Complete Time: 12:15 2 09/07 12:11 Order name: O2 Sat Monitoring; Complete Time: 12:15 2 09/07 12:11 Order name: Vital Signs; Complete Time: 12:15 ec2 Administered Medications: 12:06 Drug: Etomidate IVP 20 mg IVP once Route: IVP; Site: left forearm; ap3 15:32 Follow up: Response: No adverse reaction tl4 12:07 Drug: Rocuronium IVP 70 mg IVP once Route: IVP; Site: left forearm; ap3 15:32 Follow up: Response: No adverse reaction tl4 12:57 Drug: Propofol IV 5 mcg/kg/min IV at calculated rate See Administration Instructions; tl4 Standard concentration 1000 mg / 100 mL; Recommended max rate 50 mcg/kg/min; Titrate 2 mcg/kg/min every 5 minutes to achieve goal (see titration policy); Goal parameter RASS score 0 to -2 Route: IV; Rate: 5 mcg/kg/min; Site: left forearm; Delivery: Primary tubing; 14:13 Follow up: Response: Patient is sedated tl4 15:32 Follow up: Rate change 10 mcg/kg/min tl4 15:50 Follow up: Rate change 20 mcg/kg/min tl4 16:03 Follow up: Rate change 30 mcg/kg/min tl4 16:17 Follow up: Rate change 40 mcg/kg/min tl4 16:52 Follow up: Rate change 35 mcg/kg/min tl4 15:21 Drug: Lactulose PO 30 grams 45 ml PO once; through OG tube Volume: 45 ml; Route: PO; tl4 15:32 Follow up: Response: No adverse reaction tl4 Disposition Summary: 09/07/23 15:50 Hospitalization Ordered Notes: Hospitalization Status: Inpatient Admission ec2 Provider: Andree Mead ec2 Location: Intensive Care Unit ec2 Condition: Stable ec2 Problem: an acute exacerbation ec2 Symptoms: have improved ec2 Bed/Room Type: Standard ec2 Room Assignment: 1-(09/07/23 17:38) eb Diagnosis - Altered mental status, unspecified ec2 - Unspecified cirrhosis of liver ec2 - Hyperammonemia ec2 Forms: - Medication Reconciliation Form ec2 - SBAR form ec2 - Leadership Thank You Letter ec2 Critical care time excluding procedures: 14:03 Critical care time: Bedside Care: 30 minutes, Consultation: 5 minutes. Total time: 35 ec2 minutes Signatures: Dispatcher [employer] Antonia Carroll RN RN ap3 Hailey Huerta Edwin, MD MD ec2 Blair Goldberg tl4 Corrections: (The following items were deleted from the chart) 17:38 15:50 ec2 sarah
[2023-09-07 16:49] LABS: Arterial Blood Carboxyhemoglob 1.1 % (0-1.5); Blood Gas Oxyhemoglobin 96.1 % (94-97)
[2023-09-07] MEDS ORDERED: NA CHLORIDE 0.9% 250 ML IV PRN (17:23)
[2023-09-07] MEDS ORDERED: ALBUTEROL 2.5 MG/3 ML NEB SOL NEB PRN (17:23)
--- NOTE | 2023-09-07 17:39 | P.HP ---
Certification for Inpatient Patient admitted to: Inpatient With expected LOS: <2 Midnights Patient will require the following post-hospital care: None Practitioner: I am a practitioner with admitting privileges, knowledge of patient current condition, hospital course, and medical plan of care. Services: Services provided to patient in accordance with Admission requirements found in Title 42 Section 412.3 of the Code of Federal Regulations <BellWill - Last Filed: 09/07/23 17:41> Patient History Date of Service: 09/07/23 History of Present Illness: Ms. bernstein, 63-year-old female patient with medical history of hepatocellular carcinoma, liver cirrhosis, cirrhosis of liver, hypertension, CHF, hypothyroid, type 2 diabetes presented to ER via EMS with complaints of altered mental status. Patient's daughter is the historian. According to patient's daughter patient was found unresponsive and unable to be aroused in the morning. Patient was apparently doing okay last night. Daughter reports that patient is noncompliant with her medication lactulose. Patient is on chemotherapy Lenvima for liver cancer prescribed and titrated by oncologist Dr. Dante Ayers in [place]. Patient was intubated in the emergency room as she was unresponsive to protect her airway. Patient is orally intubated and mechanically ventilated on assist control, FiO2 30%, tidal volume 440 mL, rate 14 and PEEP 5. Patient is sedated on propofol continuous infusion. ER course Vital signs blood pressure 135/94, pulse 68, respirations 17, pulse ox 100% on vent media monitor showing sinus rhythm Laboratory evaluationmetabolic profile shows renal dysfunction with a creatinine of 1.74 and a GFR of 32, elevated ammonia level at 186, normal lactic acid, normal troponin level. CBC shows leukopenia with a WBC of 2.8, anemia with hemoglobin 10.6, thrombocytopenia platelet of 69. CT head unremarkable, CT abdomen pelvis no acute process, ascites as well as stigmata of liver cirrhosis present. chest x-ray shows correct ET tube placement Admitting the patient with a diagnosis of hepatic,/hepatic encephalopathy, hepatocellular carcinoma, and hyper ammoniemia. Home medications list reviewed: Yes - Past Medical/Surgical History Diabetic: Yes -: hepatocellular CA -: DM II -: HYPOTHYROIDISM -: CHEMORADIATION -: CVA -: LIVER CIRRHOSIS -: LIVER CA (Aug 10) - Social History Smoking Status: Never smoker Alcohol use: No CD- Drugs: No Caffeine use: Yes <Will Bell - Last Filed: 09/07/23 17:41> Date of Service: 09/08/23 <Andree Mead - Last Filed: 09/08/23 09:47> Allergies No Known Allergies Allergy (Verified 10/23/22 00:11) Home Medications: Lactulose 15 ml PO DAILY 10/23/22 Levothyroxine [Synthroid*] 75 mcg PO [id number] 10/23/22 Omeprazole [Prilosec] 20 mg PO DAILY 10/23/22 Spironolactone [Aldactone*] 50 mg PO DAILY 10/23/22 Albuterol Neb [Proventil 0.083% Neb Soln] 2.5 mg IH Q6H PRN 30 Days #90 ml 10/25/22 Mometasone/Formoterol [Dulera 100 Mcg-5 Mcg Inhaler] 8.8 gm IH BID 30 Days #60 gm 10/25/22 Amlodipine [Norvasc*] 10 mg PO DAILY 90 Days #90 tab 10/26/22 Ensure High Protein 237 ml PO AC #90 can 11/11/22 Acyclovir 400 mg PO BID 09/08/23 Furosemide [Lasix*] 20 mg PO DAILY 09/08/23 Insulin Lispro [Humalog] 75 unit SQ DAILY 09/08/23 carvediloL [Coreg*] 6.25 mg PO DAILY 09/08/23 Review of Systems 10-point ROS is otherwise unremarkable <Will Bell - Last Filed: 09/07/23 17:41> Physical Examination - Vital Signs Pulse: 59 Pulse Ox (%): 100 - Physical Exam General: Other (Sedated on Propofol) HEENT: Atraumatic, Normocephalic Neck: Supple, 2+ carotid pulse no bruit Respiratory: Clear to auscultation bilaterally, Other (Orally intubated on mechanical ventilator, on assist-control FiO2 30%, tidal volume 440, rate 14, PEEP 5) Cardiovascular: No edema, Normal pulses Capillary refill: <2 Seconds Gastrointestinal: Normal bowel sounds, Soft and benign Musculoskeletal: No clubbing, No swelling, No erythema Integumentary: No rashes, No breakdown, No significant lesion Neurological: Other (Sedated on propofol, orally intubated) - Studies Laboratory Data (last 24 hrs) 09/07/23 09/07/23 09/07/23 12:18 12:18 12:18 WBC 2.80 L Hgb 10.6 L Hct 31.6 L Plt Count 69 L PT 11.7 INR 1.07 APTT 32.9 Sodium 139 Potassium 4.2 BUN 32 H Creatinine 1.74 H Glucose 119 H Total Bilirubin 0.6 AST 56 H ALT 43 Alkaline Phosphatase 169 H <Will Bell - Last Filed: 09/07/23 17:41> - Studies Laboratory Data (last 24 hrs) 09/07/23 09/07/23 09/07/23 12:18 12:18 12:18 WBC Hgb Hct Plt Count PT 11.7 INR 1.07 APTT 32.9 Sodium 139 Potassium 4.2 BUN 32 H Creatinine 1.74 H Glucose 119 H Total Bilirubin 0.6 0.6 AST 59 H 56 H ALT 44 43 Alkaline Phosphatase 175 H 169 H 09/07/23 12:18 WBC 2.80 L Hgb 10.6 L Hct 31.6 L Plt Count 69 L PT INR APTT Sodium Potassium BUN Creatinine Glucose Total Bilirubin AST ALT Alkaline Phosphatase <Andree Mead - Last Filed: 09/08/23 09:47> Assessment and Plan - Problems (Diagnosis) (1) Hepatic coma/encephalopathy Current Visit: Yes Status: Acute (2) CHF (congestive heart failure) Current Visit: Yes Status: Chronic Qualifiers: Heart failure type: diastolic (3) CKD (chronic kidney disease) stage 3, GFR 30-59 ml/min Current Visit: Yes Status: Acute Qualifiers: Chronic kidney disease stage 3 subtype: stage 3b (GFR 30-44) Qualified Code(s): N18.32 - Chronic kidney disease, stage 3b (4) Thrombocytopenia Current Visit: No Status: Chronic (5) Diastolic dysfunction Current Visit: No Status: Chronic (6) Hepatocellular carcinoma Current Visit: No Status: Chronic (7) Hypothyroidism, unspecified Current Visit: No Status: Chronic Qualifiers: Hypothyroidism type: acquired Qualified Code(s): E03.9 - Hypothyroidism, unspecified (8) Ventilator dependent Current Visit: Yes Status: Acute - Plan Hepatic,/encephalopathy Hepatocellular carcinoma Thrombocytopenia Hyperalbuminemia leukopenia anemia CHF Hypertension CKD stage IIIb Hypothyroidism Ventilator dependent * Patient was brought to the emergency room due to unresponsiveness * Patient was intubated in the emergency room to protect the airway, sedated with continuous propofol drip * vital signs blood pressure 135/94, pulse 68, respirations 17, pulse ox 100% on vent * Refer to clinical research analyst for ventilator management * metabolic profile shows renal dysfunction with a creatinine of 1.74 and a GFR of 32-IV hydration, renal dose medication, nephrology consult to Dr. Hatfield * elevated ammonia level at 186, AST 56, ALT 43 albumin 2.2-started lactulose, monitor BMP closely. * Pancytopenia -leukopenia with a WBC of 2.8, anemia with hemoglobin 10.6, thrombocytopenia platelet of 69. Chronic, secondary to chemotherapy. Patient is on line with mother oral. Consult oncologist Dr. Albert. Monitor for bleeding. * CT head unremarkable, CT abdomen pelvis no acute process CODE STATUSfull code DVT prophylaxisSCDs Diet n.p.o.aspiration precautions Discharge Plan: Home Plan to discharge in: 48 Hours - Advance Directives Does patient have a Living Will: No Does patient have a Durable POA for Healthcare: No - Code Status/Comfort Care Code Status Assessed: Yes (Full code) Code Status: Full Code Physician Review: Patient Assessed, Agree with Above Assessment and Plan Critical Care: Yes Time Spent Managing Pts Care (In Minutes): 55 (Minutes) <Will Bell - Last Filed: 09/07/23 17:41> - Plan Pt seen and examined. I agree with the note by the RIB PULLER. Pt is a 63-yo female with past medical history of hepatocellular carcinoma, liver cirrhosis, hypertension, CHF, hypothyroid, and type 2 diabetes who was found unresponsive at home. EMS was called by her family members and they intubated her in order to protect her airway. She was in her usual state of health last night. Her daughter reports that pt is not compliant with her home meds. On admission, lab studies show Ammonia of 186. night. At bedside, pt is intubated and sedated. A/P; AMS: Likely due to acute hepatic encephalopathy. Pt was found unresponsive at home. Ammonia level is 186. Will place NG tube for lactulose. Pt was not compliant with lactulose at home. Hx of HCC/Liver cirrhosis: Will monitor LFTs. Acute resp failure: Pt was intubated in order to protect her airway. Pulm is managing vent. Thrombocytopenia: Plt is 69. Will monitor. Anemia/ leukopenia: Likely due to liver disease. Will monitor blood cell counts. Htn: Will monitor BP. Hypothyroidism: Synthroid CKD stage 3b: Cr is 1.74. Will avoid nephrotoxins and monitor renal function. Nutrition: Will continue tube feeding DVT ppx: SCD <Andree Mead - Last Filed: 09/08/23 09:47>
[2023-09-07] MEDS ORDERED: propofoL 1,000 MG/100 ML VIAL IV SCH ×2 (18:00→20:00)
--- NOTE | 2023-09-07 18:16 | P.CNS ---
Date of Consult: 09/07/23 Reason for Consult: Renal insufficiency Requesting Physician: Will Bell Chief Complaint: AMS History of Present Illness: Pls note hx obtained solely through chart review as pt is currently intubated although pt briefly known to me from consultation last year. Pt is a 63-year-old female patient with medical history of hepatocellular carcinoma, cirrhosis of liver, recurrent ascites, peripheral edema, hypothyroidism and other who presented to the ER via EMS with complaints of altered mental status. Apparently patient was found unresponsive and unable to be aroused in the morning. Patient was apparently doing okay last night per family reports. Patient is chronically on chemotherapy Lenvima for liver cancer prescribed by oncologist Dr. Dante Ayers in [place]. Patient was intubated in the emergency room due to concerns about airway protection. No sig evidence of PNA or pulm edema or large effusions on chest imaging. Renal service consulted on account of renal insufficiency which was also noted during admission last October. Allergies No Known Allergies Allergy (Verified 10/23/22 00:11) Home Medications: Lactulose 15 ml PO DAILY 10/23/22 Levothyroxine [Synthroid*] 100 mcg PO [id number] 10/23/22 Omeprazole [Prilosec] 40 mg PO DAILY 10/23/22 Spironolactone [Aldactone*] 100 mg PO DAILY 10/23/22 Albuterol Inhaler [Ventolin Inhaler*] 2 puff IH Q6H PRN 30 Days #30 gm 10/25/22 Albuterol Neb [Proventil 0.083% Neb Soln] 2.5 mg IH Q6H PRN 30 Days #90 ml 10/25/22 Mometasone/Formoterol [Dulera 100 Mcg-5 Mcg Inhaler] 8.8 gm IH BID 30 Days #60 gm 10/25/22 Amlodipine [Norvasc*] 10 mg PO DAILY 90 Days #90 tab 10/26/22 Lactulose [Cephulac*] 20 ml PO BID 30 Days #600 ml 10/26/22 Benzonatate [Tessalon Perle*] 100 mg PO BID #30 cap 11/11/22 Ensure High Protein 237 ml PO AC #90 can 11/11/22 Furosemide [Lasix*] 40 mg PO DAILY #30 tab 11/11/22 Insulin 70/30 NPH/Reg Human [Novolin 70/30*] 15 unit SQ BIDAC #2 vial 11/11/22 carvediloL [Coreg*] 6.25 mg PO BIDWM #60 tab 11/11/22 predniSONE [Deltasone*] 10 mg PO BID #20 tab 11/11/22 - Past Medical/Surgical History Diabetic: Yes -: hepatocellular CA -: DM II -: HYPOTHYROIDISM -: CHEMORADIATION -: CVA -: LIVER CIRRHOSIS -: LIVER CA (Aug 10) - Social History Smoking Status: Unknown if ever smoked Alcohol use: No CD- Drugs: No Caffeine use: Yes Review of Systems is unable to be obtained Physical Examination Temp Pulse Resp BP Pulse Ox 59 100 09/07/23 18:01 09/07/23 18:01 General: Other ([place]ed, appears thin/frail) HEENT: Atraumatic, Normocephalic, Other (ET) Neck: Supple Respiratory: Other (b/l vent BS, no rhonchi) Cardiovascular: Other (Bradycardic, no loud murmurs) Gastrointestinal: Soft and benign, Other (mild distention, zuñiga present) Musculoskeletal: No swelling, No warmth Integumentary: No rashes Neurological: Other (Sedated so further exam deferred) Urinary: Zuñiga catheter Laboratory Data (last 24 hrs) 09/07/23 09/07/23 09/07/23 12:18 12:18 12:18 WBC 2.80 L Hgb 10.6 L Hct 31.6 L Plt Count 69 L PT 11.7 INR 1.07 APTT 32.9 Sodium 139 Potassium 4.2 BUN 32 H Creatinine 1.74 H Glucose 119 H Total Bilirubin 0.6 AST 56 H ALT 43 Alkaline Phosphatase 169 H Conclusions/Impression: A/P) 1. Abnormal results of kidney function studies/serum Cr raised. Last October, pt presented then with sub-acute Stage II KASSIE on suspected underlying CKD that was thought to have developed over the prior year. All of this is in the setting of her liver disease, HCC, related therapy and other. Renal function on admission stable with levels seen on discharge last year and potentially reflecting Stage III CKD unspecified. 2. Renal imaging reports no parenchymal mass/stones. Pt has had hx of moderate proteinuria but Up/c last year < 1 but will recheck she has been on a VEGF inhibitor which can be associated with proteinuric renal disorders and HTN. UA on admission otherwise unremarkable. 3. Cirrhosis of liver, (recurrent) ascites, unspecified -unclear when last tapped. Was initiated on maintenance diuretic regimen last October. Ascites present on imaging but no other gross signs of fluid overload and with soft BP on propofol sedation ok to keep diuretics on hold and cont gentle D5NS IVF for now. 4. Acute respiratory failure without hypoxia due to AMS -ABG showed mild resp alkalosis. Vent management and weaning per primary team and when AMS improves 5. AMS 2nd to presumed hepatic encephalopathy but will defer to primary team to w/u and manage. Deven Rojo MD, CARIN
[2023-09-07 18:56] LABS: Albumin 2.2 g/dL (3.4-5.0); Bilirubin Direct 0.2 mg/dL (0-0.2); Bilirubin Indirect, Calculated 0.4 mg/dL (0.2-0.8); Bilirubin Total 0.6 mg/dL (0.2-1.0); Protein, Total 8.2 g/dL (6.4-8.2); Thyroid Stimulating Hormone 1.94 uIU/mL (0.358-3.740)
[2023-09-07] MEDS: IPRATROPIUM BROM 0.5MG/2.5ML NEB SCH (19:00)
[2023-09-07] MEDS: ALBUTEROL 2.5 MG/3 ML NEB SOL NEB SCH (19:00)
[2023-09-07] MEDS ORDERED: LACTULOSE 20 GM/30 ML UCUP PO SCH (21:00)
[2023-09-07] MEDS: FAMOTIDINE 20 MG/2 ML VIAL IV SCH (21:04)
[2023-09-07] MEDS: D5 0.9 NS 1,000 ML IV SCH (21:08)
--- NOTE | 2023-09-07 22:02 | RAD REPORT ---
EXAM DESCRIPTION: RAD - Abdomen 1 View (KUB) - 09/07/2023 6:10 pm CLINICAL HISTORY: Placement of NGT/OGT. Post Insertion. COMPARISON: No comparisons TECHNIQUE: Single AP view of the abdomen. FINDINGS: Enteric tube tip projects over the distal stomach. Nonobstructive bowel gas pattern. No air-fluid levels, free air, or pneumatosis. No suspicious calcif ications. No significant bony abnormality. IMPRESSION: Satisfactory enteric tube placement.
[2023-09-08] MEDS ORDERED: ALBUTEROL 2.5 MG/3 ML NEB SOL ONE ×2 (03:14→08:07)
[2023-09-08] MEDS ORDERED: IPRATROPIUM BROM 0.5MG/2.5ML ONE ×4 (03:15→20:07)
[2023-09-08] MEDS: ALBUTEROL 2.5 MG/3 ML NEB SOL NEB SCH ×2 (03:26→08:10)
[2023-09-08] MEDS: IPRATROPIUM BROM 0.5MG/2.5ML NEB SCH ×4 (03:26→20:05)
[2023-09-08 04:46] LABS: Absolute Lymphocytes (CBC) 0.6 K/uL (0.7-4.9); Hematocrit 26.9 % (36.0-45.0); Lymphocytes % 12.6 % (15.3-44.8); MCV 89.7 fL (80-100); MPV 9.1 fL (7.6-11.3); Platelets 58 thou/uL (152-406)
[2023-09-08 04:51] LABS: Protime INR 1.16
[2023-09-08 05:01] LABS: Albumin 1.8 g/dL (3.4-5.0); Bilirubin Total 0.6 mg/dL (0.2-1.0); Magnesium 1.9 mg/dL (1.6-2.4); Phosphorus 3.9 mg/dL (2.5-4.9); Potassium 3.4 mEq/L (3.5-5.1); Protein, Total 6.5 g/dL (6.4-8.2)
[2023-09-08] MEDS ORDERED: POTASSIUM CL 40 MEQ in NA CHLORIDE 0.9% 500 ML IV SCH (07:00)
[2023-09-08] MEDS ORDERED: KCL 20 MEQ/100 mL IVPB 100 ML IV ONE (07:46)
[2023-09-08] MEDS ORDERED: FAMOTIDINE 20 MG/2 ML VIAL IV ONE (07:46)
[2023-09-08] MEDS ORDERED: Magnesium Sulfate 2gm IVPB 2 G/50 ML BAG IV ONE ×2 (07:46→08:00)
[2023-09-08] MEDS: KCL 20 MEQ/100 mL IVPB 20 MEQ/100 ML BAG IV SCH ×2 (07:56→07:57)
[2023-09-08] MEDS: FAMOTIDINE 20 MG/2 ML VIAL IV SCH ×2 (07:57→20:41)
--- NOTE | 2023-09-08 08:41 | RAD REPORT ---
[facility] 6[facility]03 am CLINICAL HISTORY: Ventilator COMPARISON: Abdomen 1 View (KUB) dated 09/07/2023; Chest Single View dated 09/07/2023; Chest Single Vi ew dated 11/09/2022; Chest Single View dated 11/07/2022 TECHNIQUE: Portable AP view of the chest. FINDINGS: Endotracheal tube tip projects 4.7 cm above the soo. Enteric tube in satisfactory posit ion coursing below the lower film margin. The lungs are clear apart from medial right basilar streaky opacification suggesting atelectasis. No pneumothorax or effusion. The cardiomediastinal contours a re unremarkable. IMPRESSION: No acute cardiopulmonary process.
--- NOTE | 2023-09-08 09:52 | P.PN ---
Subjective Date of Service: 09/08/23 Chief Complaint: AMS Pt is intubated and sedated. Pulm is managing vent. Pt presented with elevated ammonia (186). No complaints overnight. Review of Systems is unable to be obtained Physical Examination - Vital Signs Temperature: 98.7 F Blood Pressure: 130/44 Pulse: 61 Respirations: 12 Pulse Ox (%): 100 - Physical Exam General: Unresponsive HEENT: Atraumatic, Normocephalic Neck: Supple, 2+ carotid pulse no bruit Respiratory: Clear to auscultation bilaterally, Normal air movement Cardiovascular: No edema, Normal pulses, Regular rate/rhythm, Normal S1 S2 Capillary refill: <2 Seconds Gastrointestinal: Normal bowel sounds, Soft and benign, Non-distended Musculoskeletal: No clubbing, No swelling Integumentary: No rashes, No breakdown Lymphatics: No axilla or inguinal lymphadenopathy - Studies Laboratory Data (last 24 hrs) 09/07/23 09/07/23 09/07/23 12:18 12:18 12:18 WBC Hgb Hct Plt Count PT 11.7 INR 1.07 APTT 32.9 Sodium 139 Potassium 4.2 BUN 32 H Creatinine 1.74 H Glucose 119 H Total Bilirubin 0.6 0.6 AST 59 H 56 H ALT 44 43 Alkaline Phosphatase 175 H 169 H 09/07/23 12:18 WBC 2.80 L Hgb 10.6 L Hct 31.6 L Plt Count 69 L PT INR APTT Sodium Potassium BUN Creatinine Glucose Total Bilirubin AST ALT Alkaline Phosphatase Assessment And Plan - Plan AMS: Likely due to acute hepatic encephalopathy. Pt was found unresponsive at home. Ammonia level is 186. Will place NG tube for lactulose. Pt was not compliant with lactulose at home. Hx of HCC/Liver cirrhosis: Will monitor LFTs. AST 56, ALT 43 and Alk phos 169. Elevated BNP: BNP is 658. Will f/u Echo when medically stable. Acute resp failure: Pt was intubated in order to protect her airway. Pulm is managing vent. Thrombocytopenia: Plt is 58<- 69. Will monitor. Anemia/leukopenia (panytopenia): Likely due to liver disease. Will monitor blood cell counts. hypokalemia: K is 3.2. Will replete and monitor. Mag is 1.9 Htn: Will monitor BP. Hypothyroidism: Synthroid CKD stage 3b: Cr is 1.82 <-1.74. Will avoid nephrotoxins and monitor renal function. Nutrition: Will continue tube feeding DVT ppx: SCD Physician Review: Patient Assessed, Agree with Above Assessment and Plan
--- NOTE | 2023-09-08 10:18 | P.CNS ---
Date of Consult: 09/08/23 Reason for Consult: Respiratory failure patient is on a ventilator Chief Complaint: Respiratory failure History of Present Illness: Patient is 63-year-old female with a history of hepatocellular cancer and liver cirrhosis metabolic syndrome was found to have altered mental status patient was found unresponsive he is on chemotherapy she was intubated currently in ICU hemodynamically stable oxygenation satisfactory on 30% FiO2 patient is on propofol we will plan to wean Allergies No Known Allergies Allergy (Verified 10/23/22 00:11) Home Medications: Lactulose 15 ml PO DAILY 10/23/22 Levothyroxine [Synthroid*] 75 mcg PO [id number] 10/23/22 Omeprazole [Prilosec] 20 mg PO DAILY 10/23/22 Spironolactone [Aldactone*] 50 mg PO DAILY 10/23/22 Albuterol Neb [Proventil 0.083% Neb Soln] 2.5 mg IH Q6H PRN 30 Days #90 ml 10/25/22 Mometasone/Formoterol [Dulera 100 Mcg-5 Mcg Inhaler] 8.8 gm IH BID 30 Days #60 gm 10/25/22 Amlodipine [Norvasc*] 10 mg PO DAILY 90 Days #90 tab 10/26/22 Ensure High Protein 237 ml PO AC #90 can 11/11/22 Acyclovir 400 mg PO BID 09/08/23 Furosemide [Lasix*] 20 mg PO DAILY 09/08/23 Insulin Lispro [Humalog] 75 unit SQ DAILY 09/08/23 carvediloL [Coreg*] 6.25 mg PO DAILY 09/08/23 - Past Medical/Surgical History Diabetic: Yes -: hepatocellular CA -: DM II -: HYPOTHYROIDISM -: CHEMORADIATION -: CVA -: LIVER CIRRHOSIS -: LIVER CA (Aug 10) -: Hep C - Social History Smoking Status: Unknown if ever smoked Alcohol use: No CD- Drugs: No Caffeine use: Yes Place of Residence: Home Review of Systems is unable to be obtained Physical Examination Temp Pulse Resp BP Pulse Ox 98.7 F 61 12 130/44 L 100 09/08/23 09:52 09/08/23 09:52 09/08/23 09:52 09/08/23 09:52 09/08/23 09:52 General: Unresponsive Respiratory: Clear to auscultation bilaterally Cardiovascular: No edema, Regular rate/rhythm, Normal S1 S2 Gastrointestinal: Normal bowel sounds, Soft and benign, Non-distended Musculoskeletal: No swelling Integumentary: No rashes, No breakdown, No significant lesion Laboratory Data (last 24 hrs) 09/07/23 09/07/23 09/07/23 12:18 12:18 12:18 WBC Hgb Hct Plt Count PT 11.7 INR 1.07 APTT 32.9 Sodium 139 Potassium 4.2 BUN 32 H Creatinine 1.74 H Glucose 119 H Total Bilirubin 0.6 0.6 AST 59 H 56 H ALT 44 43 Alkaline Phosphatase 175 H 169 H 09/07/23 12:18 WBC 2.80 L Hgb 10.6 L Hct 31.6 L Plt Count 69 L PT INR APTT Sodium Potassium BUN Creatinine Glucose Total Bilirubin AST ALT Alkaline Phosphatase - Problems (1) Respiratory failure Current Visit: Yes Status: Acute Plan: Patient is 63 years of age admitted with altered mental status was reviewed has chronic renal failure cirrhosis of the liver elevated ammonia level x-ray is clear oxygen requirement underlying hepatic encephalopathy she has a history of liver cancer is on chemotherapy patient was intubated for airway protection blood gases satisfactory respiratory alkalosis we will plan to wean her off from the ventilator DC propofol 8 Precedex given some of her home medications lactulose given
[2023-09-08] MEDS: carvediloL 6.25 MG TAB PO SCH (10:36)
[2023-09-08] MEDS: AMLODIPINE 10 MG TAB PO SCH (10:36)
[2023-09-08] MEDS ORDERED: LACTULOSE 20 GM/30 ML UCUP ONE (10:42)
[2023-09-08] MEDS: SPIRONOLACTONE 25 MG TABLET PO SCH (11:13)
[2023-09-08] MEDS: LACTULOSE 20 GM/30 ML UCUP PO SCH (11:16)
[2023-09-08] MEDS: DEXMEDETOMIDINE HCL 200 MCG in NA CHLORIDE 0.9% 98 ML IV SCH ×2 (11:45→21:31)
--- NOTE | 2023-09-08 13:57 | PN ---
History Of Present Illness: The patient is a 63-year-old female seen in intensive care unit. Histor y of liver disease with history of question cancer with liver. The patient presented with change of mental status, was intubated for airway protection. Currently intubated and sedated. Family is by t he bedside. There are a niece and a daughter by the bedside. The patient seems comfortable on sedat ion. Currently has been seen by Pulmonary Critical Care and plan is to perhaps wean her off slowly o f sedation and see if she is able to protect her airway and then get her extubated. Objective: Vital Signs: Stable. Blood pressure 147/51, pulse last 62, respirations around 14. The patient looks comfortable, O2 sats are close to 100%. Lungs: Clear anteriorly. Abdomen: Soft. Extremities: Do not reveal any edema. The patient is sedated. Laboratory Data: Reviewed. Labs show WBC count of 5.2, there is improvement from 2.8 yesterday. He moglobin is 9.2, hematocrit is 26.9, platelet count is 58. Chemistry shows sodium 142, potassium 3.4 , chloride 113, bicarb is 24, BUN is 36, creatinine is 1.82. TSH yesterday was 1.94. Assessment And Plan: The patient with significantly guarded condition on vent. Currently, ventilati on is okay. Lungs look clear. The patient is looking comfortable currently. Creatinine elevated to about 1.8 range, close to where it was a month's back when patient was in the hospital. Question at this is her baseline. The patient is looking close to euvolemic currently. Breathing is reasonable , but on intubation for airway protection. Liver cirrhosis, which will need further attention once a cute issues are resolved. Weaning off sedation currently to see if the patient will be able to adelina ate extubation. This is being supervised by the pulmonary doctor, currently stable with chronic kidn ey disease, 3B/4 status for kidney disease. Continue to monitor and evaluate for residual kidney dam age once acute issues are resolved. We will need a followup in clinic as well. /ALEXYS Voice ID: [id number] Report ID: [id number]
[2023-09-08] MEDS: D5 0.9 NS 1,000 ML IV SCH (16:43)
[2023-09-09] MEDS: D5 0.9 NS 1,000 ML IV SCH (01:04)
[2023-09-09] MEDS: IPRATROPIUM BROM 0.5MG/2.5ML NEB SCH ×4 (02:35→19:26)
[2023-09-09] MEDS ORDERED: IPRATROPIUM BROM 0.5MG/2.5ML ONE ×3 (02:48→13:33)
[2023-09-09 05:06] LABS: Absolute Lymphocytes (CBC) 0.7 K/uL (0.7-4.9); Hematocrit 28.2 % (36.0-45.0); Lymphocytes % 13.9 % (15.3-44.8); MPV 9.1 fL (7.6-11.3); Platelets 41 thou/uL (152-406); RBC Red Blood Cell Count 3.14 M/uL (3.86-4.86)
[2023-09-09 05:07] LABS: Protime INR 1.28
[2023-09-09] MEDS: DEXMEDETOMIDINE HCL 200 MCG in NA CHLORIDE 0.9% 98 ML IV SCH (05:07)
[2023-09-09 05:17] VITALS: BMI 21.7
[2023-09-09 05:18] LABS: Albumin 1.6 g/dL (3.4-5.0); Bilirubin Total 0.9 mg/dL (0.2-1.0); Magnesium 2.5 mg/dL (1.6-2.4); Phosphorus 4.3 mg/dL (2.5-4.9); Potassium 4.1 mEq/L (3.5-5.1); Protein, Total 6.6 g/dL (6.4-8.2)
[2023-09-09] MEDS: LEVOTHYROXINE SOD 0.075 MG TAB PO SCH (06:01)
[2023-09-09] MEDS ORDERED: NA CHLORIDE 0.9% 100 ML ONE (06:58)
[2023-09-09] MEDS ORDERED: CEFTRIAXONE 1000 MG/VIAL ONE (06:58)
[2023-09-09] MEDS: SPIRONOLACTONE 25 MG TABLET PO SCH (07:17)
[2023-09-09] MEDS: carvediloL 6.25 MG TAB PO SCH (07:18)
[2023-09-09] MEDS: LACTULOSE 20 GM/30 ML UCUP PO SCH (07:18)
[2023-09-09] MEDS: CEFTRIAXONE 1,000 MG in NA CHLORIDE 0.9% 50 ML IVPB SCH (07:19)
[2023-09-09] MEDS: AMLODIPINE 10 MG TAB PO SCH (07:19)
[2023-09-09] MEDS: FAMOTIDINE 20 MG/2 ML VIAL IV SCH ×2 (07:19→21:55)
[2023-09-09] MEDS ORDERED: GLUCAGON 1 MG/VIAL IM PRN (08:30)
[2023-09-09] MEDS ORDERED: D50W 25 GM/50 ML SYRINGE IV PRN (08:30)
--- NOTE | 2023-09-09 08:30 | P.PN ---
Subjective Date of Service: 09/09/23 Chief Complaint: Respiratory failure Pt is intubated and sedated. Pulm is managing vent. Now on SIMV setting. Will try to wean her off vent. Pt is following some commands. Pt presented with elevated ammonia (186), now 63. No complaints overnight. Review of Systems is unable to be obtained Physical Examination - Vital Signs Temperature: 97.3 F Blood Pressure: 122/53 Pulse: 55 Respirations: 15 Pulse Ox (%): 100 - Physical Exam General: Unresponsive HEENT: Atraumatic, Normocephalic Neck: Supple, 2+ carotid pulse no bruit Respiratory: Clear to auscultation bilaterally, Normal air movement Cardiovascular: No edema, Normal pulses, Regular rate/rhythm, Normal S1 S2 Capillary refill: <2 Seconds Gastrointestinal: Normal bowel sounds, Soft and benign, Non-distended Musculoskeletal: No clubbing, No swelling Integumentary: No rashes, No breakdown Neurological: Normal gait, Normal speech, Normal strength at 5/5 x4 extr Lymphatics: No axilla or inguinal lymphadenopathy Assessment And Plan - Plan AMS: Likely due to acute hepatic encephalopathy. Pt was found unresponsive at home. Ammonia level is 63 <- 86 <- 186. Will continue lactulose via NG tube. Pt was not compliant with lactulose at home. Hx of HCC/Liver cirrhosis: Will monitor LFTs. AST 56, ALT 43 and Alk phos 169. Elevated BNP: BNP is 658. Will f/u Echo when medically stable. Acute resp failure: Pt was intubated in order to protect her airway. Pulm is managing vent. Hyperglycemia: glucose is 260. Will start accuchek, SSI and ADA diet. Follow up A1c Thrombocytopenia: Plt is 41<- 58<- 69. Will monitor. Anemia/leukopenia (panytopenia): Likely due to liver disease. Will monitor blood cell counts. hypokalemia: K is 4.1 <- 3.2. Will monitor. Mag is 1.9 Htn: Will monitor BP. Hypothyroidism: Synthroid CKD stage 3b: Cr is 1.79<- 1.82 <-1.74. Will avoid nephrotoxins and monitor renal function. Nutrition: Will continue tube feeding DVT ppx: SCD Dispo: Will try to wean off Vent. Pending hospital course Physician Review: Patient Assessed, Agree with Above Assessment and Plan
[2023-09-09] MEDS ORDERED: carvediloL 6.25 MG TAB PO SCH (09:00)
[2023-09-09] MEDS ORDERED: LACTULOSE 20 GM/30 ML UCUP PO SCH (09:00)
[2023-09-09] MEDS ORDERED: HOME MED 1 EA UNK (Lactulose [Lactulose] 10 GM/15 ML Solution) PO SCH (09:00)
[2023-09-09] MEDS ORDERED: AMLODIPINE 10 MG TAB PO SCH (09:00)
[2023-09-09] MEDS ORDERED: SPIRONOLACTONE 100 MG TAB PO SCH (09:00)
[2023-09-09] MEDS ORDERED: INSULIN REGULAR (HUMAN) 100 UNIT/ML ONE (11:29)
[2023-09-09] MEDS: INSULIN REGULAR (HUMAN) 100 UNIT/ML SQ SCH ×3 (11:31→21:00)
--- NOTE | 2023-09-09 11:39 | PN ---
Subjective: The patient is seen in room 23 in the emergency room. She is actually in the intensive care unit, but that is being held out of the emergency room currently due to repairs going on in the ICU. The patient is still sedated, but sedation has been stopped and she is being looked at for poss ible weaning off the vent, still on the ventilator, on SIMV, currently looking comfortable. Objective: Vital Signs: She is afebrile. Vitals are stable. Last blood pressure 116/51, pulse is running between 50 to 60. Respirations are stable around 12 to 14. The patient's O2 saturation seem ed to be close to 100% on mechanical ventilation. Lungs: Currently, her lungs are clear anteriorly. Abdomen: Soft. Extremities: Reveal no edema. Heart: Sounds are regular. Laboratory Data: Reviewed. Labs show WBC count of 5.1, hemoglobin is 9.4, stable, compared to yeste rday when it was 9, hematocrit 28.2, platelet count of 41, which is dropped from 58, which is dropped further, 2 days ago was 69. Sodium is 143, potassium 4.1, chloride is 115, bicarb is 23, BUN is 34, creatinine is 1.79, glucose is 260, calcium level 7.7, corrected for albumin is close to normal. Al bumin level is 1.6. Ammonia level is down to 63, was 86 yesterday. Assessment And Plan: The patient is a 63-year-old female with significant comorbidities, condition s eems guarded. Significant liver disease, respiratory failure, requiring mechanical ventilation. Air way protection. Currently, creatinine has been stable. Volume status seems reasonable. Blood press ure is reasonable. Seems to be close to baseline in terms of renal function. Avoid nephrotoxins. A void diet as best as possible. The patient's kidney status seems to be close to 3B and 4, but she rivas s multiple comorbidities including liver disease, platelet counts are on the lower side. Nurse kimberlee anupam that the patient has not been getting any heparin. However, given her low platelet counts, this needs to be closely monitored, could be secondary to her liver disease. /ALEXYS Voice ID: [id number] Report ID: [id number]
--- NOTE | 2023-09-09 11:55 | P.PN ---
Subjective Date of Service: 09/09/23 Chief Complaint: Respiratory failure Subjective: Improving (Patient is doing well alert responsive cooperative on the ventilator) Review of Systems is unable to be obtained Physical Examination - Vital Signs Temperature: 97.3 F Blood Pressure: 141/54 Pulse: 64 Respirations: 12 Pulse Ox (%): 100 - Physical Exam General: Alert, Cooperative Respiratory: Clear to auscultation bilaterally Cardiovascular: No edema, Regular rate/rhythm Assessment And Plan - Current Problems (Diagnosis) (1) Respiratory failure Current Visit: Yes Status: Acute Plan: Patient admitted with respiratory failure had cirrhosis of the liver elevated ammonia she is more alert responsive hemodynamically stable renal function is also stable plan to extubate from the ventilator continue with present medication no change Physician Review: Patient Assessed, Agree with Above Assessment and Plan
[2023-09-09] MEDS ORDERED: FAMOTIDINE 20 MG/2 ML VIAL IV ONE (22:32)
[2023-09-10] MEDS: IPRATROPIUM BROM 0.5MG/2.5ML NEB SCH ×4 (01:47→19:27)
[2023-09-10 06:25] LABS: Hematocrit 26.4 % (36.0-45.0); Lymphocytes % 14.1 % (15.3-44.8); MCV 90.4 fL (80-100); MPV 8.9 fL (7.6-11.3); Platelets 57 thou/uL (152-406); RBC Red Blood Cell Count 2.92 M/uL (3.86-4.86)
[2023-09-10 06:34] LABS: Protime INR 1.18
[2023-09-10] MEDS: LEVOTHYROXINE SOD 0.075 MG TAB PO SCH (06:37)
[2023-09-10 06:44] LABS: Albumin 1.8 g/dL (3.4-5.0); Magnesium 2.2 mg/dL (1.6-2.4); Phosphorus 2.8 mg/dL (2.5-4.9); Potassium 3.6 mEq/L (3.5-5.1); Protein, Total 6.7 g/dL (6.4-8.2)
[2023-09-10] MEDS: INSULIN REGULAR (HUMAN) 100 UNIT/ML SQ SCH ×4 (07:30→20:56)
[2023-09-10] MEDS ORDERED: IPRATROPIUM BROM 0.5MG/2.5ML ONE ×3 (07:49→19:23)
[2023-09-10] MEDS ORDERED: NA CHLORIDE 0.9% 50 ML ONE (08:59)
[2023-09-10] MEDS ORDERED: carvediloL 6.25 MG TAB ONE (09:02)
--- NOTE | 2023-09-10 09:03 | P.PN ---
Subjective Date of Service: 09/10/23 Chief Complaint: Respiratory failure Pt was extubated on 09/09/23. She is oxygenating well on room air. AAOx3 and following some commands. Pt presented with elevated ammonia (186), now 63. No complaints overnight. Will transfer to the floor. Review of Systems Unremarkable General: Unremarkable Eyes: Unremarkable ENT: Unremarkable Respiratory: Unremarkable Cardiovascular: Unremarkable Gastrointestinal: Unremarkable Genitourinary: Unremarkable Musculoskeletal: Unremarkable Integumentary: Unremarkable Neurological: Unremarkable Lymphatics: Unremarkable Physical Examination - Vital Signs Temperature: 97.9 F Blood Pressure: 141/57 Pulse: 72 Respirations: 17 Pulse Ox (%): 100 - Physical Exam General: Alert, In no apparent distress, Oriented x3 HEENT: Atraumatic, Normocephalic Neck: Supple, 2+ carotid pulse no bruit Respiratory: Clear to auscultation bilaterally, Normal air movement Cardiovascular: No edema, Normal pulses, Regular rate/rhythm, Normal S1 S2 Capillary refill: <2 Seconds Gastrointestinal: Normal bowel sounds, Soft and benign, Non-distended Musculoskeletal: No clubbing, No swelling Integumentary: No rashes, No breakdown Neurological: Normal speech, Normal strength at 5/5 x4 extr, Normal tone, Sensation intact Lymphatics: No axilla or inguinal lymphadenopathy Assessment And Plan - Plan AMS: Likely due to acute hepatic encephalopathy. Pt was found unresponsive at home. Ammonia level is 63 <- 86 <- 186. Will continue lactulose via NG tube. Pt was not compliant with lactulose at home. Hx of HCC/Liver cirrhosis: Will monitor LFTs. AST 48 <- 56, ALT 30 <- 43 and Alk phos 121<- 169. Elevated BNP: BNP is 658. Will f/u Echo when medically stable. Acute resp failure: Pt was intubated in order to protect her airway. She was extubated on 09/09/23. Pulm is following. Hyperglycemia: glucose is 260. Will start accuchek, SSI and ADA diet. Follow up A1c Thrombocytopenia: Plt is 57<- 41<- 58<- 69. Will monitor. Anemia/leukopenia (panytopenia): Likely due to liver disease. Will monitor blood cell counts. hypokalemia: K is 4.1 <- 3.2. Will monitor. Mag is 1.9 Htn: Will monitor BP. Hypothyroidism: Synthroid CKD stage 3b: Cr is 1.51<- 1.79<- 1.82 <-1.74. Will avoid nephrotoxins and monitor renal function. Nutrition: Will continue tube feeding DVT ppx: SCD Dispo: Pending hospital course. Physician Review: Patient Assessed, Agree with Above Assessment and Plan
[2023-09-10 09:25] LABS: Blood Morphology Comment NOT SEEN (NOT SEEN); Platelet Estimate DECR; White Blood Cell Scan OK (OK)
[2023-09-10] MEDS: SPIRONOLACTONE 25 MG TABLET PO SCH (10:01)
[2023-09-10] MEDS: AMLODIPINE 10 MG TAB PO SCH (10:01)
[2023-09-10] MEDS: carvediloL 6.25 MG TAB PO SCH (10:01)
[2023-09-10] MEDS: LACTULOSE 20 GM/30 ML UCUP PO SCH (10:02)
[2023-09-10] MEDS: CEFTRIAXONE 1,000 MG in NA CHLORIDE 0.9% 50 ML IVPB SCH (10:02)
[2023-09-10] MEDS: FAMOTIDINE 20 MG/2 ML VIAL IV SCH ×2 (10:02→20:56)
[2023-09-10] MEDS: D5 0.9 NS 1,000 ML IV SCH (10:24)
[2023-09-10] MEDS ORDERED: INSULIN REGULAR (HUMAN) 100 UNIT/ML ONE ×3 (12:30→20:53)
--- NOTE | 2023-09-10 12:30 | P.PN ---
Subjective Date of Service: 09/10/23 Chief Complaint: Respiratory failure Subjective: Improving (Patient doing well was extubated yesterday is alert difficulty speaking awaiting speech test) Review of Systems General: Weakness Respiratory: Shortness of Breath Physical Examination - Vital Signs Temperature: 98.0 F Blood Pressure: 122/58 Pulse: 62 Respirations: 18 Pulse Ox (%): 100 - Physical Exam General: Alert, Oriented x3 Neck: Supple Respiratory: Clear to auscultation bilaterally, Diminished Assessment And Plan - Current Problems (Diagnosis) (1) Respiratory failure Current Visit: Yes Status: Acute Plan: Patient admitted with respiratory failure extubated doing better renal function is better all cultures negative PT/INR mildly elevated advance diet after the swallow test can DC IV fluids transfer to the floor Qualifiers: Chronicity: unspecified Physician Review: Patient Assessed, Agree with Above Assessment and Plan
--- NOTE | 2023-09-10 13:42 | ECHO ---
HEIGHT: 5 ft 2 in WEIGHT: 118 lb 9.6 oz DATE OF STUDY: 09/10/[address]: Andree Mead MD 2-DIMENSIONAL: YES M.MODE: YES DOPPLER: YES COLOR FLOW: YES TDS: PORTABLE: YES DEFINITY: BUBBLE STUDY: DIAGNOSIS: ELEVATED BNP CARDIAC HISTORY: CATHERIZATION: SURGERY: PROSTHETIC VALVE: PACEMAKER: MEASUREMENTS (cm) DIASTOLIC (NORMALS) SYSTOLIC (NORMALS) IVSd 0.8 (0.6-1.2) LA Diam 3.4 (1.9-4.0) LVEF 55% LVIDd 4.4 (3.5-5.7) LVIDs 3.2 (2.0-3.5) %FS 29% LVPWd 1.0 (0.6-1.2) Ao Diam 2.7 (2.0-3.7) 2 DIMENSIONAL ASSESSMENT: RIGHT ATRIUM: NORMAL LEFT ATRIUM: NORMAL RIGHT VENTRICLE: NORMAL LEFT VENTRICLE: NORMAL TRICUSPID VALVE: MILD TRICUSPID REGURGITATION MITRAL VALVE: MILD MITRAL REGURGITATION PULMONIC VALVE: NORMAL AORTIC VALVE: NORMAL PERICARDIAL EFFUSION: SMALL AORTIC ROOT: NORMAL LEFT VENTRICULAR WALL MOTION: NORMAL DOPPLER/COLOR FLOW: SEE BELOW COMMENTS: 1. NORMAL LEFT VENTRICULAR EJECTION FRACTION 55-60% 2. NORMAL WALL MOTION 3. GRADE I DIASTOLIC DYSFUNCTION 4. SMALL PERICARDIAL EFFUSION IS PRESENT 5. MILD MITRAL REGURGITATION, TRICUSPID REGURGITATION TECHNOLOGIST: NAIMA CHERRY
--- NOTE | 2023-09-10 17:01 | EKG ---
Test Date: 2023-09-07 Test Time: 13:23:33 Social Work Therapist: JONES MEASUREMENT RESULTS: Intervals: Rate: 67 [place]: 156 QRSD: 92 QT: 458 QTc: 483 [place]: P: 71 [place]: 156 QRS: 79 T: 53 INTERPRETIVE STATEMENTS: Normal sinus rhythm Normal ECG Compared to ECG 10/22/2022 09:52:30 Myocardial infarct finding no longer present Electronically Signed On 09-10-23 16:53:56 CLAIMS CONSULTANT by Himanshu Ibanez
[2023-09-10] MEDS: GLUCERNA SHAKE 237 ML CAN PO SCH (20:58)
--- NOTE | 2023-09-10 22:14 | P.PN ---
Date of Service: 09/10/23 Vital Signs Temp Pulse Resp BP Pulse Ox 98.4 F 66 16 136/65 100 09/10/23 16:00 09/10/23 18:00 09/10/23 18:00 09/10/23 18:00 09/10/23 18:00 Medications Albuterol Sulfate (Albuterol 2.5 Mg/3 Ml Neb Kaylee) 2.5 mg NEB [id number] PRN PRN Reason: SHORTNESS OF BREATH Amlodipine Besylate (Amlodipine 10 Mg Tab) 10 mg PO DAILY [facility] Last Admin: 09/10/23 10:01 Dose: 10 mg Carvedilol (Carvedilol 6.25 Mg Tab) 6.25 mg PO DAILY [facility] Last Admin: 09/10/23 10:01 Dose: 6.25 mg Enteral Nutritional Formula (Glucerna Shake 237 Ml Can) 237 ml PO BID [facility] Last Admin: 09/10/23 20:58 Dose: 237 ml Famotidine (Famotidine 20 Mg/2 Ml Vial) 20 mg IV BID [facility] Last Admin: 09/10/23 20:56 Dose: 20 mg Glucagon (Glucagon 1 Mg/Vial) 1 mg IM 1X PRN; Protocol PRN Reason: HYPOGLYCEMIA Sodium Chloride (Sodium Chloride) 250 mls @ 999 mls/hr IV Q15M PRN PRN Reason: HYPOTENSION Dexmedetomidine HCl 200 mcg/ (Sodium Chloride) 100 mls @ 5.493 mls/hr IV TITR [facility]; Protocol Last Titration: 09/09/23 11:15 Dose: 0 mcg/kg/hr, 0 mls/hr Insulin Human Regular (Insulin Regular (Human) 100 Unit/Ml) 0 unit SQ ACHS [facility]; Protocol Last Admin: 09/10/23 20:56 Dose: 3 unit Ipratropium [place] (Ipratropium Brom 0.5mg/2.5ml) 0.5 mg NEB [id number] [facility] Last Admin: 09/10/23 19:27 Dose: 0.5 mg Lactulose (Lactulose 20 Gm/30 Ml Ucup) 10 gm PO DAILY [facility] Last Admin: 09/10/23 10:02 Dose: 10 gm Levothyroxine Sodium (Levothyroxine Sod 0.075 Mg Tab) 0.075 mg PO DAILYAC [facility] Last Admin: 09/10/23 06:37 Dose: 0.075 mg Spironolactone (Spironolactone 25 Mg Tablet) 50 mg PO DAILY [facility] Last Admin: 09/10/23 10:01 Dose: 50 mg Microbiology Results 09/07/23 12:40 Blood - Blood Aerobic Blood Culture - Preliminary No growth in 24 hours. 09/07/23 12:40 Blood - Blood Anaerobic Blood Culture - Preliminary No growth in 24 hours. 09/07/23 12:18 Blood - Blood Aerobic Blood Culture - Preliminary No growth in 24 hours. 09/07/23 12:18 Blood - Blood Anaerobic Blood Culture - Preliminary No growth in 24 hours. Assessment/ Plan: Nephrology No dyspnea No chest pain No acute events overnight Vitals, medications, blood work and imaging reviewed in the chart NAD. MMM. NCAT. Normal Respiratory Effort. S1S2. ND Abd. No C/C/E. No rash. Awake. Normal speech. Sarcopenia darrenrice LEFT VENTRICULAR WALL MOTION: NORMAL DOPPLER/COLOR FLOW: SEE BELOW COMMENTS: 1. NORMAL LEFT VENTRICULAR EJECTION FRACTION 55-60% 2. NORMAL WALL MOTION 3. GRADE I DIASTOLIC DYSFUNCTION 4. SMALL PERICARDIAL EFFUSION IS PRESENT 5. MILD MITRAL REGURGITATION, TRICUSPID REGURGITATION Stage I KASSIE CKD IIIb -No NSAIDs Hypokalemia -Replete prn HTN with CKD/ CHF -Continue Amlodipine & Coreg Diastolic CHF, chronic -Low sodium diet DM II with CKD -RISS Acute Respiratory Failure in the setting of encephalopathy -Extubated September 10 Liver Cirrhosis Hepatic Encephalopathy -Continue Lactulose -Continue Spironolactone Hospitalist and Pulmonary notes reviewed
[2023-09-11] MEDS: IPRATROPIUM BROM 0.5MG/2.5ML NEB SCH ×4 (01:11→20:35)
[2023-09-11 05:46] LABS: Absolute Lymphocytes (CBC) 0.9 K/uL (0.7-4.9); Hematocrit 26.6 % (36.0-45.0); Lymphocytes % 20.6 % (15.3-44.8); MCV 89.7 fL (80-100); MPV 8.5 fL (7.6-11.3); Platelets 60 thou/uL (152-406); RBC Red Blood Cell Count 2.96 M/uL (3.86-4.86)
[2023-09-11 05:50] LABS: Potassium 4.1 mEq/L (3.5-5.1)
--- NOTE | 2023-09-11 06:41 | P.PN ---
Date of Service: 09/11/23 Subjective: Physical Exam: Vitals: reviewed GEN: Alert, oriented, NAD HEENT: Normal conjunctiva, sclera anicteric CV: Regular rate & rhythm, no edema Pulm: Nonlabored respiraitons, clear bilaterally ABD: Soft, nontender, nondistended Neuro: Normal speech, normal affect Problem List: Altered mental Status likely secondary to acute hepatic encephalopathy hx of liver cirrhosis Acute respiratory failure Hyperglycemia Thrombocytopenia Anemia/leukopenia CKD 3b Hypokalemia Hypertension Hypothyroidism Plan: Altered mental Status likely secondary to acute hepatic encephalopathy hx of liver cirrhosis CT head (09/07): no acute intracranial process CT abd (09/07): mod free ascites. stigmata of cirrhosis seen again. Apparent wall thickening of the gallbladder / colon Continue lactulose via NGT. Noted to be noncompliant with lactulose at home. Continue to monitor LFTs ammonia improving, LFTs improving Acute hypoxic respiratory failure Dr. Cresencio knowles is following Patient found unresponsive. had to intubated. Now extubated 09/09 Breathing improved; on room air Blood cx: NGTD PRN nebs Thrombocytopenia Anemia/leukopenia Monitor CBC CKD 3b Hypokalemia Nephrology consulted Continue to monitor renal function avoid nephrotoxins replete electrolytes PRN Hypertension Hypothyroidism Continue home meds as appropriate DVT ppx: SCD
[2023-09-11] MEDS: LEVOTHYROXINE SOD 0.075 MG TAB PO SCH (07:25)
[2023-09-11] MEDS: INSULIN REGULAR (HUMAN) 100 UNIT/ML SQ SCH ×4 (08:51→20:33)
[2023-09-11] MEDS: LACTULOSE 20 GM/30 ML UCUP PO SCH (08:52)
[2023-09-11] MEDS: AMLODIPINE 10 MG TAB PO SCH (08:52)
[2023-09-11] MEDS: carvediloL 6.25 MG TAB PO SCH (08:53)
[2023-09-11] MEDS: GLUCERNA SHAKE 237 ML CAN PO SCH ×2 (08:53→20:34)
[2023-09-11] MEDS: SPIRONOLACTONE 25 MG TABLET PO SCH (08:53)
[2023-09-11] MEDS: FAMOTIDINE 20 MG/2 ML VIAL IV SCH ×2 (08:54→20:33)
[2023-09-11 14:42] VITALS: O2SAT 98
--- NOTE | 2023-09-11 20:31 | P.PN ---
Date of Service: 09/11/23 Vital Signs Temp Pulse Resp BP Pulse Ox 98.8 F 74 20 146/68 H 98 09/11/23 16:00 09/11/23 16:00 09/11/23 16:00 09/11/23 16:00 09/11/23 16:00 Medications Albuterol Sulfate (Albuterol 2.5 Mg/3 Ml Neb Kaylee) 2.5 mg NEB [id number] PRN PRN Reason: SHORTNESS OF BREATH Amlodipine Besylate (Amlodipine 10 Mg Tab) 10 mg PO DAILY [facility] Last Admin: 09/11/23 08:52 Dose: 10 mg Carvedilol (Carvedilol 6.25 Mg Tab) 6.25 mg PO DAILY [facility] Last Admin: 09/11/23 08:53 Dose: 6.25 mg Enteral Nutritional Formula (Glucerna Shake 237 Ml Can) 237 ml PO BID [facility] Last Admin: 09/11/23 08:53 Dose: 237 ml Famotidine (Famotidine 20 Mg/2 Ml Vial) 20 mg IV BID [facility] Last Admin: 09/11/23 08:54 Dose: 20 mg Glucagon (Glucagon 1 Mg/Vial) 1 mg IM 1X PRN; Protocol PRN Reason: HYPOGLYCEMIA Sodium Chloride (Sodium Chloride) 250 mls @ 999 mls/hr IV Q15M PRN PRN Reason: HYPOTENSION Insulin Human Regular (Insulin Regular (Human) 100 Unit/Ml) 0 unit SQ ACHS [facility]; Protocol Last Admin: 09/11/23 16:29 Dose: 3 unit Ipratropium [place] (Ipratropium Brom 0.5mg/2.5ml) 0.5 mg NEB [id number] [facility] Last Admin: 09/11/23 13:53 Dose: 0.5 mg Lactulose (Lactulose 20 Gm/30 Ml Ucup) 10 gm PO DAILY [facility] Last Admin: 09/11/23 08:52 Dose: 10 gm Levothyroxine Sodium (Levothyroxine Sod 0.075 Mg Tab) 0.075 mg PO DAILYAC [facility] Last Admin: 09/11/23 07:25 Dose: 0.075 mg Spironolactone (Spironolactone 25 Mg Tablet) 50 mg PO DAILY [facility] Last Admin: 09/11/23 08:53 Dose: 50 mg Microbiology Results 09/07/23 12:40 Blood - Blood Aerobic Blood Culture - Preliminary No growth in 24 hours. 09/07/23 12:40 Blood - Blood Anaerobic Blood Culture - Preliminary No growth in 24 hours. 09/07/23 12:18 Blood - Blood Aerobic Blood Culture - Preliminary No growth in 24 hours. 09/07/23 12:18 Blood - Blood Anaerobic Blood Culture - Preliminary No growth in 24 hours. Assessment/ Plan: Nephrology No dyspnea No chest pain No acute events overnight Vitals, medications, blood work and imaging reviewed in the chart NAD. MMM. NCAT. Normal Respiratory Effort. S1S2. ND Abd. No C/C/E. No rash. Awake. Normal speech. Sarcopenia darrenrice LEFT VENTRICULAR WALL MOTION: NORMAL DOPPLER/COLOR FLOW: SEE BELOW COMMENTS: 1. NORMAL LEFT VENTRICULAR EJECTION FRACTION 55-60% 2. NORMAL WALL MOTION 3. GRADE I DIASTOLIC DYSFUNCTION 4. SMALL PERICARDIAL EFFUSION IS PRESENT 5. MILD MITRAL REGURGITATION, TRICUSPID REGURGITATION Stage I KASSIE CKD IIIb -No NSAIDs Hypokalemia -Replete prn HTN with CKD/ CHF -Continue Amlodipine & Coreg Diastolic CHF, chronic -Low sodium diet DM II with CKD -RISS Acute Respiratory Failure in the setting of encephalopathy -Extubated September 10 Liver Cirrhosis Hepatic Encephalopathy -Continue Lactulose -Continue Spironolactone Hospitalist and Pulmonary notes reviewed
[2023-09-12] MEDS: IPRATROPIUM BROM 0.5MG/2.5ML NEB SCH ×2 (01:25→07:00)
[2023-09-12] MEDS: LEVOTHYROXINE SOD 0.075 MG TAB PO SCH (06:23)
[2023-09-12] MEDS: INSULIN REGULAR (HUMAN) 100 UNIT/ML SQ SCH ×4 (07:30→21:00)
[2023-09-12 07:46] LABS: Hematocrit 24.8 % (36.0-45.0); MCV 89.7 fL (80-100); RBC Red Blood Cell Count 2.76 M/uL (3.86-4.86)
[2023-09-12 07:47] LABS: MPV 8.1 fL (7.6-11.3); Platelets 59 thou/uL (152-406); Protime INR 1.15
[2023-09-12 07:57] LABS: Albumin 1.6 g/dL (3.4-5.0); Bilirubin Total 0.4 mg/dL (0.2-1.0); Magnesium 2.1 mg/dL (1.6-2.4); Phosphorus 3.8 mg/dL (2.5-4.9); Protein, Total 6.3 g/dL (6.4-8.2)
[2023-09-12] MEDS: GLUCERNA SHAKE 237 ML CAN PO SCH ×2 (09:00→20:24)
[2023-09-12] MEDS: carvediloL 6.25 MG TAB PO SCH (09:02)
[2023-09-12] MEDS: SPIRONOLACTONE 25 MG TABLET PO SCH (09:02)
[2023-09-12] MEDS: AMLODIPINE 10 MG TAB PO SCH (09:02)
[2023-09-12] MEDS: LACTULOSE 20 GM/30 ML UCUP PO SCH (09:03)
[2023-09-12] MEDS: FAMOTIDINE 20 MG/2 ML VIAL IV SCH ×2 (09:03→20:23)
--- NOTE | 2023-09-12 09:26 | P.PN ---
Date of Service: 09/12/23 Vital Signs Temp Pulse Resp BP Pulse Ox 97.6 F 72 18 144/66 H 96 09/12/23 04:00 09/12/23 04:00 09/12/23 04:00 09/12/23 04:00 09/12/23 04:00 Medications Albuterol Sulfate (Albuterol 2.5 Mg/3 Ml Neb Kaylee) 2.5 mg NEB [id number] PRN PRN Reason: SHORTNESS OF BREATH Amlodipine Besylate (Amlodipine 10 Mg Tab) 10 mg PO DAILY [facility] Last Admin: 09/12/23 09:02 Dose: 10 mg Carvedilol (Carvedilol 6.25 Mg Tab) 6.25 mg PO DAILY [facility] Last Admin: 09/12/23 09:02 Dose: 6.25 mg Enteral Nutritional Formula (Glucerna Shake 237 Ml Can) 237 ml PO BID [facility] Last Admin: 09/11/23 20:34 Dose: 237 ml Famotidine (Famotidine 20 Mg/2 Ml Vial) 20 mg IV BID [facility] Last Admin: 09/12/23 09:03 Dose: 20 mg Glucagon (Glucagon 1 Mg/Vial) 1 mg IM 1X PRN; Protocol PRN Reason: HYPOGLYCEMIA Sodium Chloride (Sodium Chloride) 250 mls @ 999 mls/hr IV Q15M PRN PRN Reason: HYPOTENSION Insulin Human Regular (Insulin Regular (Human) 100 Unit/Ml) 0 unit SQ ACHS [facility]; Protocol Last Admin: 09/12/23 07:30 Dose: Not Given Ipratropium [place] (Ipratropium Brom 0.5mg/2.5ml) 0.5 mg NEB [id number] [facility] Last Admin: 09/12/23 07:00 Dose: 0.5 mg Lactulose (Lactulose 20 Gm/30 Ml Ucup) 10 gm PO DAILY [facility] Last Admin: 09/12/23 09:03 Dose: 10 gm Levothyroxine Sodium (Levothyroxine Sod 0.075 Mg Tab) 0.075 mg PO DAILYAC [facility] Last Admin: 09/12/23 06:23 Dose: 0.075 mg Spironolactone (Spironolactone 25 Mg Tablet) 50 mg PO DAILY [facility] Last Admin: 09/12/23 09:02 Dose: 50 mg Microbiology Results 09/07/23 12:40 Blood - Blood Aerobic Blood Culture - Preliminary No growth in 24 hours. 09/07/23 12:40 Blood - Blood Anaerobic Blood Culture - Preliminary No growth in 24 hours. 09/07/23 12:18 Blood - Blood Aerobic Blood Culture - Preliminary No growth in 24 hours. 09/07/23 12:18 Blood - Blood Anaerobic Blood Culture - Preliminary No growth in 24 hours. Assessment/ Plan: Nephrology No dyspnea No chest pain No acute events overnight Vitals, medications, blood work and imaging reviewed in the chart NAD. MMM. NCAT. Normal Respiratory Effort. S1S2. ND Abd. No C/C/E. No rash. Awake. Normal speech. Sarcopenia darrenrice LEFT VENTRICULAR WALL MOTION: NORMAL DOPPLER/COLOR FLOW: SEE BELOW COMMENTS: 1. NORMAL LEFT VENTRICULAR EJECTION FRACTION 55-60% 2. NORMAL WALL MOTION 3. GRADE I DIASTOLIC DYSFUNCTION 4. SMALL PERICARDIAL EFFUSION IS PRESENT 5. MILD MITRAL REGURGITATION, TRICUSPID REGURGITATION Stage I KASSIE likley multifactorial CKD IIIb -No NSAIDs Hypokalemia -Replete prn HTN with CKD/ CHF -Continue Amlodipine & Coreg Diastolic CHF, chronic -Low sodium diet DM II with CKD -RISS Acute Respiratory Failure in the setting of encephalopathy -Extubated September 10 Liver Cirrhosis Hypoalbuminemia Hepatic Encephalopathy -Continue Lactulose -Continue Spironolactone Hospitalist note reviewed
[2023-09-12 09:56] LABS: Blood Morphology Comment NOT SEEN (NOT SEEN); Platelet Estimate DECR; White Blood Cell Scan OK (OK)
[2023-09-12] MEDS ORDERED: LACTULOSE 20 GM/30 ML UCUP PO ONE (10:15)
[2023-09-12] MEDS ORDERED: IPRATROPIUM BROM 0.5MG/2.5ML NEB PRN (10:36)
[2023-09-12] MEDS ORDERED: ALBUMIN HUMAN 25% 100 ML IV SCH (14:00)
[2023-09-12] MEDS ORDERED: carvediloL 6.25 MG TAB PO SCH (17:00)
[2023-09-12] MEDS: JUVEN PACKET PO SCH (20:24)
[2023-09-13] MEDS: LEVOTHYROXINE SOD 0.075 MG TAB PO SCH (06:35)
[2023-09-13] MEDS: INSULIN REGULAR (HUMAN) 100 UNIT/ML SQ SCH (07:30)
[2023-09-13] MEDS: LACTULOSE 20 GM/30 ML UCUP PO SCH (08:12)
[2023-09-13] MEDS: SPIRONOLACTONE 25 MG TABLET PO SCH (08:13)
[2023-09-13] MEDS: AMLODIPINE 10 MG TAB PO SCH (08:13)
[2023-09-13] MEDS: FAMOTIDINE 20 MG/2 ML VIAL IV SCH (08:14)
[2023-09-13] MEDS: JUVEN PACKET PO SCH (08:26)
[2023-09-13] MEDS: GLUCERNA SHAKE 237 ML CAN PO SCH (09:00)
--- NOTE | 2023-09-13 10:37 | P.PN ---
(S) Pt denies any dyspnea, abd pain, stable distention, she acknowledges some lightheadedness when OOB (O) vitals reviewed in the EMR General: Other (NAD, appears thin/frail) HEENT: Atraumatic, Normocephalic, not on O2 Neck: Supple Respiratory: Other (b/l BS, no rhonchi) Cardiovascular: Other (Non tachy, no loud murmurs) Gastrointestinal: Soft and NT, Other (mild distention) Musculoskeletal: No swelling, No warmth Integumentary: No rashes Neurological: Awake, responsive, no tremors Laboratory Data (last 24 hrs) Reviewed in the EMR Conclusions/Impression: A/P) 1. Abnormal results of kidney function studies/serum Cr raised. Last October, pt presented then with sub-acute Stage II KASSIE on suspected underlying CKD that was thought to have developed over the prior year. All of this is in the setting of her liver disease, HCC, related therapy and other. Renal function on admission stable with levels seen on discharge last year and potentially reflecting Stage III CKD unspecified with Cr level since then trending a bit lower and currently stable. 2. Renal imaging reports no parenchymal mass/stones. Pt has had hx of moderate proteinuria but Up/c last year < 1 but can recheck as OP she has been on a VEGF inhibitor which can be associated with proteinuric renal disorders and HTN. UA on admission otherwise unremarkable. 3. Cirrhosis of liver, (recurrent) ascites, unspecified -unclear when last tapped. Was initiated on maintenance diuretic regimen last October. Ascites present on imaging but no other gross signs of fluid overload and with soft BP on propofol sedation initially kept diuretics on hold but pt now back on Spironolactone (without Lasix) 4. Acute respiratory failure without hypoxia due to AMS -resolved 5. Marked hypoalbuminemia due to liver cirrhosis and possible mod protein calorie malnutrition Deven Rojo MD, CARIN
[2023-09-13 12:42] VITALS: BP 131/69; TEMP 98.1
== END 2023-09-13 14:26 | disposition home health service (06) | DRG 441 ==
LOC: ER 11:49 → ERHOLD 17:28 → 3RD-ICU 17:47 → 2ND 09-11 06:44
PROVIDERS: ADMIT Hospitalist; ATTEND Hospitalist
PROC: 5A1935Z Respiratory Ventilation, Less than 24 Consecutive Hours (ICD-10-PCS; principal; 2023-09-07)
PROC: 0BH17EZ Insertion of Endotracheal Airway into Trachea, Via Natural or Artificial Opening (ICD-10-PCS; 2023-09-07)
DX: K72.01 Acute and subacute hepatic failure with coma (principal); J96.01 Acute respiratory failure with hypoxia; C22.0 Liver cell carcinoma; E72.20 Disorder of urea cycle metabolism, unspecified; I50.32 Chronic diastolic (congestive) heart failure; I13.0 Hypertensive heart and chronic kidney disease with heart failure and stage 1 through stage 4 chronic kidney disease, or unspecified chronic kidney disease; D61.818 Other pancytopenia; N17.9 Acute kidney failure, unspecified; N18.4 Chronic kidney disease, stage 4 (severe); E44.0 Moderate protein-calorie malnutrition; R18.8 Other ascites; E11.22 Type 2 diabetes mellitus with diabetic chronic kidney disease; E11.65 Type 2 diabetes mellitus with hyperglycemia; D63.1 Anemia in chronic kidney disease; K74.60 Unspecified cirrhosis of liver; E87.6 Hypokalemia; E03.9 Hypothyroidism, unspecified; D72.819 Decreased white blood cell count, unspecified; T45.1X5A Adverse effect of antineoplastic and immunosuppressive drugs, initial encounter; Z78.1 Physical restraint status; Z79.4 Long term (current) use of insulin; Z86.73 Personal history of transient ischemic attack (TIA), and cerebral infarction without residual deficits; Z68.22 Body mass index [BMI] 22.0-22.9, adult; Z79.52 Long term (current) use of systemic steroids; Z79.02 Long term (current) use of antithrombotics/antiplatelets; Z79.899 Other long term (current) drug therapy; Z79.890 Hormone replacement therapy; Z91.148 Patient's other noncompliance with medication regimen for other reason
CPT/HCPCS: 31500; 36415; 36600; 51702; 70450; 71045; 74018; 74176; 80048; 80053; 80061; 80076; 81001; 82140; 82805; 82947; 83605; 83735; 83880; 84100; 84145; 84443; 84484; 85025; 85610; 85730; 87040; 92507; 92523; 92526; 92610; 93005; 93306; 94002; 94003; 94640; 96374; 96375; 97116; 97161; 99291; 99292; J0696; J1815; J2704; J3475; J3480; J7040; J7042; J7613; J7644; P9047

== ENCOUNTER 2024-02-21 23:03 | Emergency (ER) | payer OTHER ==
[2024-02-22] MEDS ORDERED: NA CHLORIDE 0.9% 1,000 ML ONE (00:07)
[2024-02-22 00:32] LABS: Absolute Lymphocytes (CBC) 0.8 K/uL (0.7-4.9); Absolute Monocytes 0.6 K/uL (0.1-1.3); Basophils % 0.3 % (0-1.3); Eosinophils % 0.8 % (0-4.4); Hematocrit 30.6 % (36.0-45.0); Hemoglobin 9.8 g/dL (12.0-15.0); Lymphocytes % 17.6 % (15.3-44.8); MCH 29.2 pg (27.0-35.0); MCHC 31.9 g/dL (32.0-36.0); MCV 91.6 fL (80-100); MPV 9.4 fL (7.6-11.3); Monocytes % 12.7 % (3.3-12.3); Neutrophils % 68.6 % (41.7-73.7); Platelets 59 thou/uL (152-406); RBC Red Blood Cell Count 3.35 M/uL (3.86-4.86); Red Cell Distribution Width 17.9 % (12.1-15.2)
[2024-02-22] MEDS ORDERED: IBUPROFEN 200 MG TAB PO ONE (00:36)
[2024-02-22 00:37] LABS: PT Prothrombin Time 12.4 SECONDS (9.4-12.5); PTT, Activated Partial Thromb 29.2 SECONDS (24.3-36.9); Protime INR 1.13
[2024-02-22 00:45] LABS: Albumin 2.1 g/dL (3.4-5.0); Albumin/Globulin Ratio 0.4 (1.1-1.8); Bilirubin Total 0.7 mg/dL (0.2-1.0); Globulin 5.6 g/dL (2.3-3.5); Protein, Total 7.7 g/dL (6.4-8.2)
[2024-02-22 00:57] LABS: Albumin 2.2 g/dL (3.4-5.0); Albumin/Globulin Ratio 0.4 (1.1-1.8); Bilirubin Direct 0.3 mg/dL (0-0.2); Bilirubin Indirect, Calculated 0.4 mg/dL (0.2-0.8); Bilirubin Total 0.7 mg/dL (0.2-1.0); Globulin 5.5 g/dL (2.3-3.5); Protein, Total 7.7 g/dL (6.4-8.2)
[2024-02-22 01:01] LABS: Specific Gravity 1.014 (1.005-1.030); Sqamous Epithelial <5 /HPF (None Seen); Urine Bacteria 20-50 /HPF (<20); Urine Bilirubin NEGATIVE (Negative); Urine Blood Trace (Negative); Urine Clarity Extremely Turbid (Clear); Urine Color Yellow (Yellow); Urine Culture Reflex Order REFLEXED; Urine Glucose TRACE (Negative); Urine Ketones NEGATIVE (Negative); Urine Microscopic Reflex YN ORDER UMIC; Urine Mucus Slight /HPF (None Seen); Urine Nitrite NEGATIVE (Negative); Urine Protein 3+ (Negative); Urine RBC <5 /HPF (None Seen); Urine Urobilinogen Normal (Normal)
[2024-02-22 01:54] LABS: Anisocytosis 1+; Platelet Estimate DECR; White Blood Cell Scan OK (OK)
[2024-02-22 01:55] LABS: Blood Morphology Comment NOTED (NOT SEEN)
[2024-02-22] MEDS ORDERED: CEFTRIAXONE 2000 MG/VIAL ONE (03:16)
[2024-02-22] MEDS ORDERED: LACTULOSE 20 GM/30 ML UCUP ONE (03:17)
[2024-02-22 03:25] LABS: INFLUENZA A NAA NEGATIVE (NEGATIVE); RESPIRATORY SYNCYTIAL VIR NAA NEGATIVE (NEGATIVE)
[2024-02-22 03:26] LABS: SARS-COV-2 RT PCR POSITIVE (NEGATIVE)
--- NOTE | 2024-02-22 06:53 | ER ---
Nurse's Notes [facility] Name: Angi Sterling Age: 63 yrs Sex: Female : 1960 Arrival Date: 02/21/2024 Time: 23:03 Bed 15 Private MD: Diagnosis: Altered mental status, [id number];Other specified viral diseases Presentation: 02/20 23:15 Chief complaint: EMS states: AMS since today with abdominal distention. Family reports pc2 fever of 102.9. Hx: liver cirrhosis. 23:15 Coronavirus screen: At this time, unable to obtain information related to travel pc2 outside the [place] At this time, the client does not indicate any symptoms associated with coronavirus-19. Ebola Screen: No symptoms or risks identified at this time. Initial Sepsis Screen: Does the patient meet any 2 criteria? Altered Mental Status. HR > 90 bpm. Does the patient have a suspected source of infection? No. Patient's initial sepsis screen is negative. Risk Assessment: Do you want to hurt yourself or someone else? Patient reports no desire to harm self or others. Onset of symptoms was February 21, 2024. Care prior to arrival: Medication(s) given: LR. 23:15 Method Of Arrival: EMS: [facility] 23:15 Acuity: ALISHA 3 pc2 Triage Assessment: 23:34 General: Appears in no apparent distress. uncomfortable, slender, Behavior is calm. pc2 Pain: Complains of pain in abdomen Quality of pain is described as aching, Is intermittent, Noted to be grimacing. EENT: No signs and/or symptoms were reported regarding the EENT system. Neuro: Level of Consciousness is awake, lethargic, Oriented to person, place. Cardiovascular: Capillary refill < 3 seconds Patient's skin is warm and dry. Respiratory: Airway is patent Respiratory effort is even, unlabored, Respiratory pattern is regular, symmetrical. GI: Abdomen is round distended, noted to have ascites, Abdomen has rebound tenderness X 4 quads. :. Derm: No signs and/or symptoms reported regarding the dermatologic system. Musculoskeletal: No signs and/or symptoms reported regarding the musculoskeletal system. Historical: - Allergies: 23:32 No Known Allergies; pc2 - Home Meds: 23:32 spironolactone 100 mg Oral tab 1 tab once daily [Active]; omeprazole 40 mg Oral cpDR 1 pc2 cap once daily [Active]; levothyroxine 100 mcg cap 1 cap once daily [Active]; lactulose 10 gram/15 mL Oral soln 15 mL once daily [Active]; carvedilol 6.25 mg Oral tab 1 tab 2 times per day [Active]; amlodipine 2.5 mg tab 1 tab once daily [Active]; Humalog Sub-Q [Active]; Lenvima oral [Active]; - PMHx: 23:32 liver cancer; diabetes mellitus; cirrhosis of liver; CVA; pc2 - Immunization history:: Adult Immunizations unknown. - Infectious Disease History:: Denies. - Social history:: Smoking status: unknown. Screenin/05 00:06 [facility] ED Fall Risk Assessment (Adult) History of falling in the last 3 months, pc2 including since admission No falls in past 3 months (0 pts) Confusion or Disorientation Yes (5 pts) Intoxicated or Sedated No (0 pts) Impaired Gait Yes (1 pt) Mobility Assist Device Used No (0 pt) Altered Elimination Yes (1 pt) Score/Fall Risk Level 3 or more points = High Risk Oriented to surroundings, Maintained a safe environment, Hourly rounding (assess needs \\T\\ fall precautionary measures) done, Remained with patient while ambulating. Abuse screen: Denies threats or abuse. Denies injuries from another. Nutritional screening: No deficits noted. Tuberculosis screening: No symptoms or risk factors identified. Assessment: 00:04 Reassessment: see triage. pc2 01:48 Reassessment: Patient appears in no apparent distress at this time. No changes from pc2 previously documented assessment. Patient and/or family updated on plan of care and expected duration. Pain level reassessed. 02:20 Reassessment: Patient and/or family updated on plan of care and expected duration. Pain pc2 level reassessed. Patient is alert, oriented x 3, equal unlabored respirations, skin warm/dry/pink. Neuro: Level of Consciousness is awake, alert, obeys commands, Oriented to person, place, time, situation. 03:33 General: Attempted to call patient's daughter Africa ([phone]) to update on pc2 patient status and plan for discharge per MD, no answer.. 04:30 Reassessment: EYES CLOSED. Respiratory: Airway is patent Respiratory effort is even, ha1 unlabored, Respiratory pattern is regular, symmetrical. 05:30 Reassessment: EYES CLOSED. Respiratory: Airway is patent Respiratory effort is even, ha1 unlabored, Respiratory pattern is regular, symmetrical. 06:30 Reassessment: SPOKE TO PATIENT'S DAUGHTER STATES " I WILL BE THERE IN A WHILE." ha1 INFORMED FAMILY MEMBER WAS UP FOR DISCHARGE AND NEEDS A RIDE HOME. Vital Signs: 02/20 23:15 BP 174 / 69; Pulse 92; Resp 20; Temp 99.1; Pulse Ox 100% on R/A; Weight 54.43 kg (R); pc2 Height 5 ft. 4 in. (R); 02/21 00:30 BP 169 / 72; Pulse 92; Resp 20; Pulse Ox 100% ; pc2 01:48 BP 137 / 56; Pulse 78; Resp 20; Pulse Ox 100% on R/A; pc2 02:48 BP 124 / 53; Pulse 74; Resp 18; Temp 98.8(O); Pulse Ox 100% on R/A; pc2 03:30 BP 124 / 48; Pulse 70; Resp 16; Pulse Ox 100% on R/A; ha1 04:05 BP 124 / 48; Pulse 66; Resp 19; Temp 98.4; Pulse Ox 98% on R/A; rg5 05:46 BP 114 / 47; Pulse 62; Resp 17; Temp 98; Pulse Ox 100% on R/A; rg5 06:00 BP 124 / 49; Pulse 63; Resp 16 S; Pulse Ox 100% on R/A; ha1 07:00 BP 119 / 51; Pulse 72; Resp 18 S; Pulse Ox 100% on R/A; ha1 02/20 23:15 Body Mass Index 20.60 (54.43 kg, 162.56 cm) pc2 ED Course: 02/20 23:10 Patient arrived in ED. ty 23:22 Tay Lao MD is Attending Physician. 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 pc2 23:28 Juanita De La Rosa, RN is Primary Nurse. pc2 23:30 Maintain EMS IV. Dressing intact. Good blood return noted. Site clean \\T\\ dry. Gauge \\T\\ pc 2 site: 20# left FA. 23:30 Client placed on continuous cardiac and pulse oximetry monitoring. NIBP monitoring pc2 applied. 23:32 Triage completed. pc2 23:59 EKG done, by ED staff, reviewed by Tay Lao MD. pc2 02/21 00:16 Inserted saline lock: 20 gauge in right forearm, using aseptic technique. Blood rv1 collected. 00:17 AMMONIA Sent. rv1 00:17 LFT's Sent. rv1 00:17 Blood Culture Adult (2) Sent. rv1 00:17 CBC with Diff Sent. rv1 00:17 CMP Sent. rv1 00:17 Lactate w/ 2H reflex if indic. Sent. rv1 00:17 Protime (+inr) Sent. rv1 00:17 Ptt, Activated Sent. rv1 00:35 Urinalysis w/ reflexes Sent. pc2 00:35 Urine Culture Sent. pc2 00:40 Patient has correct armband on for positive identification. Placed in gown. Bed in low pc2 position. Call light in reach. Side rails up X2. Provided Education on: POC and time frame. Head of bed elevated. 00:53 XRAY CXR (1 view) In Process Unspecified. EDMS 01:49 No provider procedures requiring assistance completed. pc2 03:35 Report given to MILTON Verdugo. pc2 07:23 IV discontinued, intact, bleeding controlled, No redness/swelling at site. Pressure ha1 dressing applied. Administered Medications: 00:07 Drug: NS 0.9% IV 1000 ml IV at 125 ml/hr continuous Route: IV; Rate: 125 ml/hr; Site: pc2 left forearm; 00:30 Follow up: Response: No adverse reaction pc2 00:12 CANCELLED (contraindicatedd): [id number] mg PO once bo1 00:38 Drug: Ibuprofen PO 600 mg PO once Route: PO; pc2 01:00 Follow up: Response: No adverse reaction pc2 03:25 Drug: Rocephin IV 2 grams IV at bolus once; Given slow IV push per pharmaVAZATA pc2 instructions Route: IV; Rate: bolus; Site: right forearm; 04:00 Follow up: Response: No adverse reaction; IV Status: Completed infusion; IV Intake: [id number] 03:30 Drug: Lactulose PO 20 grams 30 ml PO once Volume: 30 ml; Route: PO; pc2 04:00 Follow up: Response: No adverse reaction ha1 Medication: 00:41 VIS not applicable for this client. pc2 Intake: 04:00 IV: 50ml; Total: 50ml. ha1 Outcome: 06:53 Discharge ordered by . boIdalmis 07:22 Discharged to home via wheelchair, with family, ha1 07:22 Condition: stable 07:22 Discharge instructions given to patient, family, Instructed on discharge instructions, follow up and referral plans. medication usage, Demonstrated understanding of instructions, follow-up care, medications, 07:23 Patient left the ED. ha1 Signatures: Dispatcher [employer] Lucina Greco, RN RN ha1 Eleonora Jewell rv1 Gagandeep Velasquez Benjamin, MD MD boRicci Peterson RN RN rg5 Juanita De La Rosa, RN RN pc2
--- NOTE | 2024-02-22 06:53 | EDPHYS ---
Physician Documentation [facility] Name: Angi Sterling Age: 63 yrs Sex: Female : 1960 Arrival Date: 02/21/2024 Time: 23:03 Bed 15 Private MD: ED Physician Tay Lao HPI: 02/20 23:58 The patient presents with confusion, Recent adjustment of her Lasix per nurse getting bo1 hx from daughter at home. Pt arrives to ER via EMS called by daughter. Hospital of choice is [facility]. . Onset: The symptoms/episode began/occurred today. Possible causes: Known elevated ammonia on lactulose. Recent adjustment of Lasix by PCP. Elevated temp by transporting EMS.. The patient has experienced similar episodes in the past, Last admission was Aug 2023 for the same., Hx of liver cancer.. Historical: - Allergies: 23:32 No Known Allergies; pc2 - Home Meds: 23:32 spironolactone 100 mg Oral tab 1 tab once daily [Active]; omeprazole 40 mg Oral cpDR 1 pc2 cap once daily [Active]; levothyroxine 100 mcg cap 1 cap once daily [Active]; lactulose 10 gram/15 mL Oral soln 15 mL once daily [Active]; carvedilol 6.25 mg Oral tab 1 tab 2 times per day [Active]; amlodipine 2.5 mg tab 1 tab once daily [Active]; Humalog Sub-Q [Active]; Lenvima oral [Active]; - PMHx: 23:32 liver cancer; diabetes mellitus; cirrhosis of liver; CVA; pc2 - Immunization history:: Adult Immunizations unknown. - Infectious Disease History:: Denies. - Social history:: Smoking status: unknown. ROS: 23:54 Abdomen/GI: Positive for abdominal distension, bo1 23:54 Unable to obtain ROS due to altered mental status, Pt is confused to time/place. Currently "febrile" and probably has high ammonia., Exam: 23:56 Constitutional: The patient appears alert, awake, obviously ill, uncomfortable, bo1 23:56 Head/face: Exam is negative for acute changes, 23:56 Eyes: Sclera: no acute changes, 23:56 Neck: External neck: is normal, 23:56 Chest/axilla: Inspection: no acute changes, 23:56 Respiratory: mild respiratory distress is noted, Breath sounds: no acute changes, 23:56 Abdomen/GI: Inspection: distension, that is severe, "tense", Liver: is enlarged, 23:56 Musculoskeletal/extremity: Extremities: no acute changes, 23:56 Skin: Exam negative for ecchymosis, rash, 23:56 Neuro: Orientation: Confused, 02/21 05:15 ECG was reviewed by the Attending Physician. bo1 Vital Signs: 02/20 23:15 BP 174 / 69; Pulse 92; Resp 20; Temp 99.1; Pulse Ox 100% on R/A; Weight 54.43 kg (R); pc2 Height 5 ft. 4 in. (R); 02/21 00:30 BP 169 / 72; Pulse 92; Resp 20; Pulse Ox 100% ; pc2 01:48 BP 137 / 56; Pulse 78; Resp 20; Pulse Ox 100% on R/A; pc2 02:48 BP 124 / 53; Pulse 74; Resp 18; Temp 98.8(O); Pulse Ox 100% on R/A; pc2 03:30 BP 124 / 48; Pulse 70; Resp 16; Pulse Ox 100% on R/A; ha1 04:05 BP 124 / 48; Pulse 66; Resp 19; Temp 98.4; Pulse Ox 98% on R/A; rg5 05:46 BP 114 / 47; Pulse 62; Resp 17; Temp 98; Pulse Ox 100% on R/A; rg5 06:00 BP 124 / 49; Pulse 63; Resp 16 S; Pulse Ox 100% on R/A; ha1 07:00 BP 119 / 51; Pulse 72; Resp 18 S; Pulse Ox 100% on R/A; ha1 02/20 23:15 Body Mass Index 20.60 (54.43 kg, 162.56 cm) pc2 MDM: 02/20 23:22 Patient medically screened. bo1 02/21 03:12 ED course: Labs reviewed; pt may be discharged with dx of elevated ammonia for the AMS bo1 symptoms and a UTI. Will order an IV abx. Daughter at home to be contacted.. 06:48 Differential Diagnosis: UTI, Hyperammonia, fever; Acute viral dz - Covid (SARS-2). ED bo1 course: No hypoxia. ED course: Not a pt candidate for Paxlovid.. 02/20 23:23 Order name: Blood Culture Adult (2) bo02/20 23:23 Order name: CBC with Diff; Complete Time: 02:53 bo02/20 23:23 Order name: CMP; Complete Time: 02:53 bo02/20 23:23 Order name: Lactate w/ 2H reflex if indic.; Complete Time: 02:53 bo02/20 23:23 Order name: Protime (+inr); Complete Time: 02:53 bo02/20 23:23 Order name: Ptt, Activated; Complete Time: 02:53 bo02/20 23:26 Order name: Urinalysis w/ reflexes; Complete Time: 02:53 bo02/20 23:26 Order name: Urine Culture bo02/20 23:30 Order name: COVID-19/FLU A+B/RSV; Complete Time: 05:03 bo02/20 23:46 Order name: LFT's; Complete Time: 02:53 bo02/20 23:47 Order name: AMMONIA; Complete Time: 02:53 bo02/21 00:40 Order name: CBC Smear Scan; Complete Time: 02:53 EDMS 02/20 23:24 Order name: XRAY CXR (1 view) bo02/20 23:23 Order name: Accucheck; Complete Time: 00:21 bo02/20 23:23 Order name: Cardiac monitoring; Complete Time: 23:46 bo02/20 23:23 Order name: EKG - Nurse/Tech; Complete Time: 00:21 bo02/20 23:23 Order name: IV Saline Lock - Large Bore; Complete Time: 00:17 bo02/20 23:23 Order name: Labs collected and sent; Complete Time: 00:17 bo02/20 23:23 Order name: O2 Per Protocol; Complete Time: 00:21 bo02/20 23:23 Order name: O2 Sat Monitoring; Complete Time: 00:21 bo02/20 23:23 Order name: Vital Signs; Complete Time: 00:21 bo EC:15 Rate is 89 beats/min. Rhythm is regular. QRS [place] is Normal. DE interval is normal. QRS bo1 interval is normal. QT interval is normal. No Q waves. T waves are Normal. No ST changes noted. Clinical impression: Normal ECG and No evidence of ischemia. Interpreted by me. Reviewed by me. Administered Medications: 00:07 Drug: NS 0.9% IV 1000 ml IV at 125 ml/hr continuous Route: IV; Rate: 125 ml/hr; Site: pc2 left forearm; 00:30 Follow up: Response: No adverse reaction pc2 00:12 CANCELLED (contraindicatedd): [id number] mg PO once bo1 00:38 Drug: Ibuprofen PO 600 mg PO once Route: PO; pc2 01:00 Follow up: Response: No adverse reaction pc2 03:25 Drug: Rocephin IV 2 grams IV at bolus once; Given slow IV push per pharmarcy pc2 instructions Route: IV; Rate: bolus; Site: right forearm; 04:00 Follow up: Response: No adverse reaction; IV Status: Completed infusion; IV Intake: [id number] 03:30 Drug: Lactulose PO 20 grams 30 ml PO once Volume: 30 ml; Route: PO; pc2 04:00 Follow up: Response: No adverse reaction ha1 Disposition Summary: 02/22/24 06:53 Discharge Ordered Notes: Location: Home bo1 Problem: new bo1 Symptoms: are unchanged bo1 Condition: Stable bo1 Diagnosis - Altered mental status, unspecified - SARS-2 bo1 - Other specified viral diseases bo1 Followup: bo1 - With: Private Physician - When: Today - Reason: Re-evaluation by your physician Discharge Instructions: - Discharge Summary Sheet bo1 - COVID-19 bo1 - Ammonia Test bo1 Forms: - Medication Reconciliation Form bo1 - Antibiotic Education bo1 - Prescription Opioid Use bo1 - Patient Portal Instructions bo1 - Leadership Thank You Letter bo1 Signatures: Dispatcher [employer] EDMS Tay Lao MD MD bo1 Juanita De La Rosa, RN RN pc2 Lucina Washington RN ha1 Corrections: (The following items were deleted from the chart) 02/20 23:23 23:23 BLOOD CULTURE*+BA.LAB.BRZ ordered. EDMS EDMS 23:23 23:23 CBC+H.LAB.BRZ ordered. EDMS EDMS 23:23 23:23 COMPREHENSIVE METABOLIC PANEL+C.LAB.BRZ ordered. EDMS EDMS 23:23 23:23 LACTATE+C.LAB.BRZ ordered. EDMS EDMS 23:23 23:23 PROTIME (+INR)+COAG.LAB.BRZ ordered. EDMS EDMS : 23:23 PTT, ACTIVATED+COAG.LAB.BRZ ordered. EDMS EDMS : 23:24 Chest Single View+RAD.RAD.BRZ ordered. EDMS EDMS 23:26 Urinalysis+U.LAB.BRZ ordered. EDMS EDMS : 23:26 Urine Culture+BA.LAB.BRZ ordered. EDMS EDMS 02/21 00:12 02/20 23:23 Acetaminophen PO 1000 mg PO once ordered. bo1 bo1
[2024-02-22 07:35] VITALS: O2SAT 100
[2024-02-22 07:50] VITALS: TEMP 98
[2024-02-22 08:04] VITALS: BP 124/49
--- NOTE | 2024-02-22 11:12 | EKG ---
Test Date: 2024-02-21 Test Time: 23:59:36 Strategic Manager: KAILEE MEASUREMENT RESULTS: Intervals: Rate: 89 NC: 134 QRSD: 84 QT: 368 QTc: 447 [place]: P: 61 NC: 134 QRS: 66 T: -7 INTERPRETIVE STATEMENTS: Normal sinus rhythm Anterior infarct, age undetermined Abnormal ECG Compared to ECG 09/07/2023 13:23:33 Myocardial infarct finding now present Electronically Signed On 02-22-24 11:11:46 CDT by Shaji Hilton
--- NOTE | 2024-02-22 12:13 | RAD REPORT ---
EXAM DESCRIPTION: Chest Single View 02/22/2024 1:12 AM CDT CLINICAL HISTORY: 63 years, Female, FEVER COMPARISON: None FINDINGS: 1 views of the chest was obtained. No prior films are available at this time for compari son. There is slight decreased lung volume. Mediastinum: The cardiomediastinal silhouette appears normal in size and shape. Lungs: No areas of consolidations or masses are identified. Heart: The heart is normal in size. Thoracic aorta: The thoracic aorta demonstrate minimal intimal calcification. Pulmonary vasculature: The pulmonary vasculature is normal in distribution. Pleura: The costophrenic angles demonstrate to be sharp. Osseous structures: The bony structures demonstrate to be within normal limits. Other: External EKG leads within the [id number] limits diagnosis. IMPRESSION: No acute cardiopulmonary disease. Slight decreased lung volume. Electronically signed by: Richard Mccormick MD 02/22/2024 01:13 AM CDT RP Due to temporary technical issues with the PACS/Fluency reporting system, reports are being signed by the in house radiologist without review as a courtesy to ensure prompt reporting. The interpreting r adiologist is fully responsible for the content of the report.
== END 2024-02-22 07:23 | disposition home or self-care (01) ==
LOC: ER 23:03
DX: U07.1 COVID-19 (principal); B33.8 Other specified viral diseases
CPT/HCPCS: 96365; 93005; 87040 ×2; 87088; 85025; 81001; 87086; 36415; 82140; 85610; 80076; 83605; 85730; 80053; 0241U; 71045; 99285; J0696; J7030